=== PATIENT | female | born 1955 | race Caucasian/White ===

== ENCOUNTER 2018-08-01 10:06 | Emergency (ER) | payer BC ==
[2018-08-01 11:23] LABS: Absolute Lymphocytes (CBC) 0.7 K/uL (0.7-4.9); Absolute Monocytes 0.6 K/uL (0.1-1.3); Basophils % 0.5 % (0-1.3); Eosinophils % 0.2 % (0-4.4); Hematocrit 39.7 % (36.0-45.0); Lymphocytes % 20.6 % (15.3-44.8); MPV 8.6 fL (7.6-11.3); Monocytes % 17.2 % (3.3-12.3); RBC Red Blood Cell Count 4.46 M/uL (3.86-4.86)
[2018-08-01] MEDS ORDERED: NA CHLORIDE 0.9% 1,000 ML ONE (11:24)
[2018-08-01] MEDS ORDERED: ONDANSETRON 4 MG/2 ML VIAL ONE (11:24)
--- NOTE | 2018-08-01 11:32 | RAD REPORT ---
EXAM DESCRIPTION: RAD - Chest Single View - 08/01/2018 11:26 am CLINICAL HISTORY: COUGH Chest pain. COMPARISON: CHEST PA AND LAT 2 VIEW dated 10/11/2009; CHEST PA AND LAT 2 VIEW dated 12/01/2008; CHEST PA AND LAT 2 VIEW dated 09/16/2004 FINDINGS: Portable technique limits examination quality. The lungs are underinflated resulting in vascular crowding. No consolidation evident. The heart is mi ldly prominent in size. No displaced fractures.
[2018-08-01 11:48] LABS: Potassium 4.5 mmol/L (3.5-5.1)
--- NOTE | 2018-08-01 12:38 | ER ---
Nurse's Notes [facility] Name: Darby Lau Age: 62 yrs Sex: Female : 1955 Arrival Date: 08/01/2018 Time: 10:08 Bed 16 Private MD: Diagnosis: Influenza due to identified novel influenza A virus;Dehydration Presentation: 08/01 10:00 Initial Sepsis Screen: Does the patient meet any 2 criteria? No. Patient's initial ls4 sepsis screen is negative. Does the patient have a suspected source of infection? No. Patient's initial sepsis screen is negative. 10:30 Presenting complaint: N/V, nonproductive cough, sinus congestion, and subjective fever hb x 5 days. Not tolerating fluids/medications. Hx DM, has insulin pump and glucose monitor, BGL 253. Transition of care: patient was not received from another setting of care. Onset of symptoms was July 27, 2018. Risk Assessment: Do you want to hurt yourself or someone else? Patient reports no desire to harm self or others. Care prior to arrival: None. 10:30 Method Of Arrival: Ambulatory hb 10:30 Acuity: OMDI 3 hb Triage Assessment: 10:30 General: Appears in no apparent distress. Behavior is calm, cooperative. ls4 10:30 Pain: Denies pain. ls4 Historical: - Allergies: 10:36 Cipro; hb 10:36 Darvocet-N 100; hb 10:36 Codeine; hb 10:36 Sulfa (Sulfonamide Antibiotics); hb - Home Meds: 10:36 Insulin Pump [Active]; gabapentin 300 mg oral cap 1 cap 3 times per day [Active]; hb losartan 50 mg oral tab 1 tab once daily [Active]; omeprazole 20 mg Oral cpDR 1 cap once daily [Active]; aspirin 81 mg Oral TbEC 1 tab once daily [Active]; Benadryl 25 mg Oral cap 2 caps nightly [Active]; Calcium+D oral oral [Active]; Co Q-10 100 mg oral cap [Active]; multivitamin with minerals oral tab [Active]; tumeric [Active]; alprazolam 0.25 mg Oral TbDL 1 tab nightly [Active]; Reclast 5 mg/100 mL intravenous soln [Active]; - PMHx: 10:36 Back pain; Diabetes - IDDM; osteoarthritis; hb - PSHx: 10:36 Tonsillectomy; Tubal ligation; Hysterectomy; hb - Immunization history:: Adult Immunizations up to date. - Social history:: Smoking status: Patient/guardian denies using tobacco. - Ebola Screening: : No symptoms or risks identified at this time. Screenin:28 Abuse screen: Denies threats or abuse. Denies injuries from another. Nutritional ls4 screening: No deficits noted. Tuberculosis screening: No symptoms or risk factors identified. Fall Risk None identified. Assessment: 10:00 General: Appears in no apparent distress. Pain: Denies pain. Cardiovascular: No ls4 deficits noted. Respiratory: No deficits noted. : No deficits noted. Derm: No deficits noted. Vital Signs: 10:32 BP 122 / 66; Pulse 90; Resp 16; Temp 98.3; Pulse Ox 100% on R/A; Pain 6/10; hb ED Course: 10:08 Patient arrived in ED. tw3 10:26 Horacio Deluna PA is PHCP. jr8 10:26 Klaus Tubbs MD is Attending Physician. jr8 10:32 Triage completed. hb 10:32 Arm band placed on. hb 10:37 Alana Florence, RN is Primary Nurse. ls4 11:18 Initial lab(s) drawn, by ok, sent to lab. Inserted saline lock: 22 gauge in left 5 antecubital area, using aseptic technique. Blood collected. 11:19 Patient has correct armband on for positive identification. Bed in low position. Call [facility] light in reach. Side rails up X 1. Adult w/ patient. Warm blanket given. Pulse ox on. NIBP on. 11:19 Basic Metabolic Panel Sent. 5 11:19 CBC with Diff Sent. 5 11:19 Influenza Screen (a \T\ B) Sent. 5 11:25 X-ray completed. Portable x-ray completed in exam room. Patient tolerated procedure sw well. 11:26 XRAY Chest (1 view) In Process Unspecified. EDMS 11:28 No provider procedures requiring assistance completed. ls4 13:05 IV discontinued, intact, bleeding controlled, No redness/swelling at site. ls4 Administered Medications: 11:28 Drug: NS 0.9% 1000 ml Route: IV; Rate: 1000 ml; Site: left antecubital; ls4 11:28 Drug: Zofran 4 mg Route: IVP; Site: left antecubital; ls4 Outcome: 12:37 Discharge ordered by . 8 13:05 Patient left the ED. ls4 13:05 Condition: stable ls4 13:05 Discharged to home ambulatory, with family. ls4 13:05 Discharge instructions given to patient, family, Instructed on discharge instructions, follow up and referral plans. Demonstrated understanding of instructions, follow-up care, medications. Signatures: Dispatcher [employer] EDMS Horacio Deluna PA PA jr8 Warren, Shannon sw Baxter, Heather, LETICIA RN Lennie Ferris 5 Lance, Genoveva 3 Alana Florence RN RN ls4
--- NOTE | 2018-08-01 12:38 | EDPHYS ---
Physician Documentation [facility] Name: Darby Lau Age: 62 yrs Sex: Female : 1955 Arrival Date: 08/01/2018 Time: 10:08 Bed 16 Private MD: ED Physician Klaus Tubbs HPI: 08/01 10:42 This 62 yrs old Female presents to ER via Ambulatory with complaints of Flu jr8 Symptoms. 10:42 one week ago had flu like symptoms. Still continues and now having n/v. . Severity of jr8 symptoms: At their worst the symptoms were moderate in the emergency department the symptoms are unchanged. The patient has not experienced similar symptoms in the past. The patient has not recently seen a physician. Historical: - Allergies: 10:36 Cipro; hb 10:36 Darvocet-N 100; hb 10:36 Codeine; hb 10:36 Sulfa (Sulfonamide Antibiotics); hb - Home Meds: 10:36 Insulin Pump [Active]; gabapentin 300 mg oral cap 1 cap 3 times per day [Active]; hb losartan 50 mg oral tab 1 tab once daily [Active]; omeprazole 20 mg Oral cpDR 1 cap once daily [Active]; aspirin 81 mg Oral TbEC 1 tab once daily [Active]; Benadryl 25 mg Oral cap 2 caps nightly [Active]; Calcium+D oral oral [Active]; Co Q-10 100 mg oral cap [Active]; multivitamin with minerals oral tab [Active]; tumeric [Active]; alprazolam 0.25 mg Oral TbDL 1 tab nightly [Active]; Reclast 5 mg/100 mL intravenous soln [Active]; - PMHx: 10:36 Back pain; Diabetes - IDDM; osteoarthritis; hb - PSHx: 10:36 Tonsillectomy; Tubal ligation; Hysterectomy; hb - Immunization history:: Adult Immunizations up to date. - Social history:: Smoking status: Patient/guardian denies using tobacco. - Ebola Screening: : No symptoms or risks identified at this time. ROS: 10:49 Eyes: Negative for injury, pain, redness, and discharge, ENT: Negative for injury, jr8 pain, and discharge, Neck: Negative for injury, pain, and swelling, Cardiovascular: Negative for chest pain, palpitations, and edema, Back: Negative for injury and pain, MS/Extremity: Negative for injury and deformity, Skin: Negative for injury, rash, and discoloration, Neuro: Negative for headache, weakness, numbness, tingling, and seizure. 10:49 Respiratory: Positive for cough, dyspnea on exertion, Negative for shortness of breath, sputum production, wheezing. 10:49 Abdomen/GI: Positive for nausea and vomiting, Negative for abdominal pain, diarrhea, abdominal cramps, abdominal distension, anorexia, dysphagia, hematemesis, black/tarry stool, rectal pain, rectal bleeding, bowel incontinence, flatulence. Exam: 10:49 Eyes: Pupils equal round and reactive to light, extra-ocular motions intact. Lids and jr8 lashes normal. Conjunctiva and sclera are non-icteric and not injected. Cornea within normal limits. Periorbital areas with no swelling, redness, or edema. ENT: Nares patent. No nasal discharge, no septal abnormalities noted. Tympanic membranes are normal and external auditory canals are clear. Oropharynx with no redness, swelling, or masses, exudates, or evidence of obstruction, uvula midline. Mucous membranes moist. Neck: Trachea midline, no thyromegaly or masses palpated, and no cervical lymphadenopathy. Supple, full range of motion without nuchal rigidity, or vertebral point tenderness. No Meningismus. Cardiovascular: Regular rate and rhythm with a normal S1 and S2. No gallops, murmurs, or rubs. Normal PMI, no JVD. No pulse deficits. Respiratory: Lungs have equal breath sounds bilaterally, clear to auscultation and percussion. No rales, rhonchi or wheezes noted. No increased work of breathing, no retractions or nasal flaring. Abdomen/GI: Soft, non-tender, with normal bowel sounds. No distension or tympany. No guarding or rebound. No evidence of tenderness throughout. Back: No spinal tenderness. No costovertebral tenderness. Full range of motion. Skin: Warm, dry with normal turgor. Normal color with no rashes, no lesions, and no evidence of cellulitis. MS/ Extremity: Pulses equal, no cyanosis. Neurovascular intact. Full, normal range of motion. Neuro: Awake and alert, GCS 15, oriented to person, place, time, and situation. Cranial nerves II-XII grossly intact. Motor strength 5/5 in all extremities. Sensory grossly intact. Cerebellar exam normal. Normal gait. Vital Signs: 10:32 BP 122 / 66; Pulse 90; Resp 16; Temp 98.3; Pulse Ox 100% on R/A; Pain 6/10; hb MDM: 10:26 Patient medically screened. 8 12:36 Data reviewed: vital signs, nurses notes, lab test result(s), radiologic studies, plain jr films, and as a result, I will discharge patient. Data interpreted: Pulse oximetry: on room air is 100 %. Interpretation: normal. Counseling: I had a detailed discussion with the patient and/or guardian regarding: the historical points, exam findings, and any diagnostic results supporting the discharge/admit diagnosis, lab results, radiology results, the need for outpatient follow up, a family practitioner, to return to the emergency department if symptoms worsen or persist or if there are any questions or concerns that arise at home. Response to treatment: the patient's symptoms have markedly improved after treatment, patient is well hydrated. 08/01 10:44 Order name: Influenza Screen (a \T\ B); Complete Time: 11:49 [facility] 08/01 10:44 Order name: CBC with Diff 08/01 10:44 Order name: Basic Metabolic Panel; Complete Time: 11:49 [facility] 08/01 10:44 Order name: XRAY Chest (1 view); Complete Time: 11:33 [facility] 08/01 12:36 Order name: Urine Dipstick--Ancillary (enter results); Complete Time: 12:51 08/01 10:44 Order name: Urine Dipstick-Ancillary (obtain specimen); Complete Time: 13:05 [facility] 08/01 10:44 Order name: IV; Complete Time: 11:19 Administered Medications: 11:28 Drug: NS 0.9% 1000 ml Route: IV; Rate: 1000 ml; Site: left antecubital; ls4 11:28 Drug: Zofran 4 mg Route: IVP; Site: left antecubital; ls4 Disposition: 14:18 Co-signature as Attending Physician, Klaus Tubbs MD I agree with the assessment and melissa plan of care. Disposition: 08/01/18 12:37 Discharged to Home. Impression: Influenza due to identified novel influenza A virus, Dehydration. - Condition is Stable. - Discharge Instructions: Dehydration, Adult, Influenza, Adult. - Medication Reconciliation Form, Thank You Letter, Antibiotic Education, Prescription Opioid Use form. - Follow up: Private Physician; When: 2 - 3 days; Reason: Recheck today's complaints, Continuance of care, Re-evaluation by your physician. - Problem is new. - Symptoms have improved. Signatures: Dispatcher [employer] EDMS Klaus Tubbs MD MD cha Roszak, Josh, PA PA jr8 Stephanie Conway RN RN Alana Florecne RN RN ls4 Corrections: (The following items were deleted from the chart) 13:05 12:37 08/01/2018 12:37 Discharged to Home. Impression: Influenza due to identified ls4 novel influenza A virus; Dehydration. Condition is Stable. Forms are Medication Reconciliation Form, Thank You Letter, Antibiotic Education, Prescription Opioid Use. Follow up: Private Physician; When: 2 - 3 days; Reason: Recheck today's complaints, Continuance of care, Re-evaluation by your physician. Problem is new. Symptoms have improved. jr8
[2018-08-01 12:48] LABS: Urine Blood TRACE (NEG); Urine Glucose 2+ (NEG); Urine Protein NEGATIVE (NEG); Urine pH 5.5 (5.0-7.0)
[2018-08-01 13:22] VITALS: BP 122/66; TEMP 98.3; O2SAT 100
[2018-08-01 13:34] LABS: Blood Morphology Comment NOT SEEN (NOT SEEN); Platelet Estimate ADEQ
== END 2018-08-01 13:05 | disposition home or self-care (01) ==
LOC: ER 10:06
DX: J10.1 Influenza due to other identified influenza virus with other respiratory manifestations (principal); E86.0 Dehydration; E11.9 Type 2 diabetes mellitus without complications; Z96.41 Presence of insulin pump (external) (internal); Z79.4 Long term (current) use of insulin; Z79.82 Long term (current) use of aspirin; Z88.1 Allergy status to other antibiotic agents; Z88.2 Allergy status to sulfonamides; Z88.5 Allergy status to narcotic agent
CPT/HCPCS: 36415; 71045; 80048; 81003; 85025; 87804; 96374; 99284; J2405; J7030

== ENCOUNTER 2023-09-18 16:58 | Inpatient (IN) | payer OTHER ==
--- OUTSIDE RECORDS SUMMARY | 2023-09-18 17:00 | XMS REPORT | Clinical Summary ---
Author Name Unknown Organization [facility] Address [address] [place] [address] Care Team Providers Care Primer Expeditor And Drier Name Role Phone Valdemar Ro MD Primary Care Provi todd Allergies Active Allergy Reactions Criticality Noted Date Comments Ciprofloxacin Rash Low 06/16/2015 Propoxyphene GI Intolerance 07/23/2023 Sulfa (Sulfonamide Antibiotics) Hives,Rash Low 06/16/2015 Triazolam Other (See Comments) 07/23/2023 Memory loss Medications Medication Sig Dispensed Refills Start Date End Date Status famotidine (PEPCID) 20 mg tablet Take 1 tablet (20 mg) by mouth daily. 0 Active gabapentin (NEURONTIN) 300 mg capsule Take 1 capsule (300 mg) by mouth every morning. 0 Active insulin lispro (HumaLOG) 100 units/mL injection for insulin pump by continuous subcutaneous infusion route continuous. For use in insulin pump. 0 Active losartan (COZAAR) 50 mg tablet Take 1 tablet (50 mg) by mouth daily. 0 Active omeprazole (PriLOSEC) 40 MG capsule Take 1 capsule (40 mg) by mouth every morning before breakfast. 0 Active UNABLE TO FIND daily. Med Name: align probiotic 0 Active aspirin 81 mg EC tablet Take 1 tablet (81 mg) by mouth daily. 0 Active biotin 2,500 mcg cap Take 1 capsule by mouth daily. 0 Active diphenhydrAMINE (BENADRYL) 25 mg capsule Take 1 capsule (25 mg) by mouth. 0 Active cetirizine (ZyrTEC) 10 mg tablet Take 1 tablet (10 mg) by mouth daily. 0 Active co-enzyme Q-10 50 mg capsule Take 4 capsules (200 mg) by mouth daily. 0 Active traMADol (ULTRAM) 50 mg tablet Take 1 tablet (50 mg) by mouth as needed. 0 Active lutein-zeaxanthin 20 mg- 1,000 mcg cap Take 1 capsule by mouth daily. 0 Active CALCIUM 26-VIT D3-MAGNESIUM 15 ORAL Take 1 capsule by mouth daily. 0 Active Active Problems Problem Noted Date Diagnosed Date Type 1 diabetes mellitus 07/23/2023 Lesion of bone 07/23/2023 Encounters Date Type Department Care Team Description 08/08/2023 [facility]phone [facility] [address] [place] [address], 9th [place] [address] Tom Contreras PA 07/25/2023 1:10 PM CHINESE LANGUAGE PROFESSOR Ancillary Procedure [facility] [address] [address] Tom Contreras PA Lesion of bone 07/25/2023 Travel 07/23/2023 1:25 PM CHINESE LANGUAGE PROFESSOR - 07/23/2023 11:59 PM CHINESE LANGUAGE PROFESSOR Hospital [facility]counter [facility] [address] [place] [address], 3rd [place] [address] Tom Contreras PA Lesion of bone Discharge Disposition: Home 07/23/2023 12:45 PM CHINESE LANGUAGE PROFESSOR Ancillary Procedure [facility] [address] [place] [address], 7th [place] [address] Tom Contreras PA Lesion of bone 07/23/2023 12:30 PM CHINESE LANGUAGE PROFESSOR Ancillary Procedure [facility] [address] [place] [address], 7th [place] [address] Tom Contreras PA Lesion of bone 07/23/2023 10:31 AM CHINESE LANGUAGE PROFESSOR - 07/23/2023 1:24 PM CHINESE LANGUAGE PROFESSOR Hospital Encounter [facility] [address] [place] [address], [place] [address] Tmo Contreras PA Lesion of bone Discharge Disposition: Home 07/23/2023 10:00 AM CHINESE LANGUAGE PROFESSOR Office [facility] [address] [place] [address], 9th [place] [address] Valdemar Ro MD Lesion of bone (Primary Dx) 07/23/2023 Travel 07/18/2023 8:30 PM CHINESE LANGUAGE PROFESSOR Ancillary Procedure [facility] [address] [place] [id number] Valdemar Ro MD Cancer 07/18/2023 8:25 PM CHINESE LANGUAGE PROFESSOR Ancillary Procedure [facility] [address] [place] [id number] Valdemar Ro MD Cancer 07/18/2023 8:20 PM CHINESE LANGUAGE PROFESSOR Ancillary Procedure [facility] [address] [place] [id number] Valdemar Ro MD Cancer 07/18/2023 8:15 PM CHINESE LANGUAGE PROFESSOR Ancillary Procedure [facility] [address] [place] [id number] Valdemar Ro MD Cancer 07/18/2023 8:10 PM CHINESE LANGUAGE PROFESSOR Ancillary Procedure [facility] [address] [place] [id number] Valdemar Ro MD Cancer 07/18/2023 8:05 PM CHINESE LANGUAGE PROFESSOR Ancillary Procedure [facility] [address] [place] [id number] Valdemar Ro MD Cancer 07/18/2023 8:00 PM CHINESE LANGUAGE PROFESSOR Ancillary Procedure [facility] [address] [place] [id number] Valdemar Ro MD Cancer 07/18/2023 1:30 PM CHINESE LANGUAGE PROFESSOR NPR MDA PATIENT ACCESS Valdemar Ro MD after 09/18/2022 Surgical History Surgery Date Site/Laterality Comments APPENDECTOMY 1976 COLONOSCOPY 192 Neg HYSTERECTOMY 2001 c Bladder Suspension CHOLECYSTECTOMY 1976 Multi Stones KNEE ARTHROPLASTY Partial R 2010 & 201 2 Partial L UPPER GASTROINTESTINAL ENDOSCOPY 2019-current Medical History Medical History Date Comments Hypertension ? Hyperlipidemia ? Allergic rhinitis Seasonal Swallowing problem Large bites or meds Gastric reflux 2016 Gastric ulcer Gastric age 11 Irritable bowel syndrome 2020 after 1st covid va c Chronic Gallstone 1976 Open Jeanette/Appe Renal stone 1976 removed Blood transfusion, without reported diagnosis 19 77 Arthritis 1970 Osteo Type 1 diabetes mellitus 1976 Dexcom G6& Omnipod A1C 5.9 Family History Medical History Relation Name Comments -Other cancer Mother Aledya Walker systemic scler osis, Scleroderma -Other cancer Paternal Grandfather Aba Emmanuel Squa mous Cell Carcinoma Relation Name Status Comments Mother Aleyda Walker Paternal Grandfather Aba Emmanuel Social History Tobacco Use Types Packs/Day Years Used Date Smoking Tobacco: Never Smokeless Tobacco: Never Tobacco Cessation:Counseling Given: Not Answered Alcohol Use Standard Drinks/Week Comments Not Currently 0 (1 standard drink = 0.6 oz pur e alcohol) rarely wine Sex and Gender Information Value Date Recorded Sex Assigned at Female 07/02/2023 5:09 PM CHINESE LANGUAGE PROFESSOR Gender Identity Female 07/02/2023 5:09 PM CHINESE LANGUAGE PROFESSOR Sexual Orientation Straight 07/02/2023 5: 09 PM CHINESE LANGUAGE PROFESSOR Job Start Date Occupation Industry Not on file Not on file Not on file Obstetrics History Last Filed Vital Signs Vital Sign Reading Time Taken Comments Blood Pressure 150/61 07/23/2023 9:25 AM CHINESE LANGUAGE PROFESSOR Pulse 80 07/23/2023 9:25 AM CHINESE LANGUAGE PROFESSOR Temperature 36.7 C (98.1 F) 07/23/2023 9:25 AM CS T Respiratory Rate 18 07/23/2023 9:25 AM CHINESE LANGUAGE PROFESSOR Oxygen Saturation 99% 07/23/2023 9:25 AM CHINESE LANGUAGE PROFESSOR Inhaled Oxygen Concentration - - Weight 68.5 kg (151 lb 0.2 oz) 07/23/2023 9:25 A M CHINESE LANGUAGE PROFESSOR Height 151.5 cm (4' 11.65") 07/23/2023 9:[address] Body Mass Index 29.84 07/23/2023 9:25 AM CHINESE LANGUAGE PROFESSOR Plan of Treatment Health Maintenance Due Date Last Done Comments COVID-19 Vaccine (2022-06 4 season) 2023 03/25/2021, 07/24/2020, 06/26/2020 Influenza Vaccine 01/19/2023 01/10/2020 Procedures Procedure Name Priority Date/Time Associated Diagnosis Comments POC GLUCOSE SCREEN Routine 07/25/2023 2: 32 [address] CH[employer] CT CHEST ABDOMEN PELVIS W CONTRAST Routine 07/25/2023 2:28 PM CHINESE LANGUAGE PROFESSOR Lesion of bone POC GLUCOSE SCREEN Routine 07/25/2023 1: 15 PM CHINESE LANGUAGE PROFESSOR XR SCOLIOSIS SERIES AP/LAT Routine 07/23/2023 2:21 PM CHINESE LANGUAGE PROFESSOR Lesion of bone XR RIBS BILATERAL 3 VW Routine 12:53 PM CHINESE LANGUAGE PROFESSOR Lesion of bone XR HIP 2 VW BILATERAL W PELVIS Routine 07/23/2023 12:47 PM CHINESE LANGUAGE PROFESSOR Lesion of bone PROTEIN ELECTROPHORESIS Routine 07/23/19 24 11:02 AM CHINESE LANGUAGE PROFESSOR Lesion of bone .CBC Routine 07/23/2023 11:02 AM CHINESE LANGUAGE PROFESSOR Lesion of bone C REACTIVE PROTEIN Routine 07/23/2023 11 :02 AM CHINESE LANGUAGE PROFESSOR Lesion of bone SEDIMENTATION RATE NON-AUTOMATED Routine 07/23/2023 11:02 AM CHINESE LANGUAGE PROFESSOR Lesion of bone FREE THYROXINE Routine 07/23/2023 11:02 AM CHINESE LANGUAGE PROFESSOR Lesion of bone THYROID STIMULATING HORMONE Routine 07/23/2023 11:02 AM CHINESE LANGUAGE PROFESSOR Lesion of bone PROTEIN ELECTROPHORESIS Routine 07/23/19 24 11:02 AM CHINESE LANGUAGE PROFESSOR Lesion of bone HEMOGLOBIN A1C Routine 07/23/2023 11:02 AM CHINESE LANGUAGE PROFESSOR Lesion of bone TYPE AND SCREEN Routine 07/23/2023 11:02 AM CHINESE LANGUAGE PROFESSOR Lesion of bone TOTAL PROTEIN Routine 07/23/2023 11:02 AM CHINESE LANGUAGE PROFESSOR Lesion of bone PROTHROMBIN TIME Routine 07/23/2023 11:0 2 AM CHINESE LANGUAGE PROFESSOR Lesion of bone PHOSPHORUS LEVEL Routine 07/23/2023 11:0 2 AM CHINESE LANGUAGE PROFESSOR Lesion of bone MAGNESIUM LEVEL Routine 07/23/2023 11:02 AM CHINESE LANGUAGE PROFESSOR Lesion of bone LACTATE DEHYDROGENASE Routine 07/23/2023 11:02 AM CHINESE LANGUAGE PROFESSOR Lesion of bone GLUCOSE, RANDOM Routine 07/23/2023 11:02 AM CHINESE LANGUAGE PROFESSOR Lesion of bone ELECTROLYTE PANEL Routine 07/23/2023 11: 02 AM CHINESE LANGUAGE PROFESSOR Lesion of bone CREATININE Routine 07/23/2023 11:02 AM CHINESE LANGUAGE PROFESSOR Lesion of bone COMPLETE BLOOD COUNT W/ DIFFERENTIAL Routine 07/23/2023 11:02 AM CHINESE LANGUAGE PROFESSOR Lesion of bone BILIRUBIN TOTAL Routine 07/23/2023 11:02 AM CHINESE LANGUAGE PROFESSOR Lesion of bone CALCIUM LEVEL Routine 07/23/2023 11:02 AM CHINESE LANGUAGE PROFESSOR Lesion of bone BLOOD UREA NITROGEN Routine 07/23/2023 1 1:02 AM CHINESE LANGUAGE PROFESSOR Lesion of bone ASPARTATE AMINOTRANSFERASE Routine 07/23/2023 11:02 AM CHINESE LANGUAGE PROFESSOR Lesion of bone APTT Routine 07/23/2023 11:02 AM CHINESE LANGUAGE PROFESSOR Lesion of bone ALANINE AMINOTRANSFERASE Routine 024 11:02 AM CHINESE LANGUAGE PROFESSOR Lesion of bone ALBUMIN LEVEL Routine 07/23/2023 11:02 AM CHINESE LANGUAGE PROFESSOR Lesion of bone CONFIRM ABORH TYPE Routine 07/23/2023 10 :59 AM CHINESE LANGUAGE PROFESSOR Lesion of bone OSI NUCLEAR DIAGNOSTIC EXAM Routine 07/04/2023 1:07 PM CHINESE LANGUAGE PROFESSOR Cancer OSI BARIUM SWALLOW Routine 07/02/2023 1: 07 PM CHINESE LANGUAGE PROFESSOR Cancer OSI CHEST Routine 03/29/2023 1:08 PM CHINESE LANGUAGE PROFESSOR Cancer OSI BONE SCAN Routine 03/29/2023 1:07 PM CHINESE LANGUAGE PROFESSOR Cancer after 09/18/2022 Results * POC Glucose Screen - Fingerstick (07/25/2023 2:32 PM CHINESE LANGUAGE PROFESSOR) Only the most recent of2 resultswithin the time period is included. Pathologist [facility] Glucose Screen 81 70 - 99 mg/dL 07/25/2023 2:34 PM CHINESE LANGUAGE PROFESSOR CARLISLE POC Sample Type Capillary 07/25/2023 2:34 PM [facility] Blood 07/25/2023 2:32 PM CHINESE LANGUAGE PROFESSOR 07/25/2023 2:34 PM CHINESE LANGUAGE PROFESSOR [facility] - 07/25/2023 2:34 PM CHINESE LANGUAGE PROFESSOR Capillary blood samples, e.g. obtained by fingerstick, may have inaccurate results in patients with decreased peripheral blood flow. Method description: All results are measured using Electrochemistry test methodology. The glucose in the sample mixes with the reagents on the test strip. The reaction produces an electric current. The amount of current produced is proportional to the glucose concentration in the blood. All POC Glucose screen test results, including critical values, must be interpreted and evaluated in the context of the patients' clinical findings. It is recommended to confirm any questionable test results by core lab methodology. Tom OSORIO POCT ORDERABLES - DEVICE [facility] [place] [address] [facility], [facility] [address] [place] [address] * CT Chest Abdomen Pelvis with Contrast (07/25/2023 2:28 PM CHINESE LANGUAGE PROFESSOR) Anatomical Region Laterality Modality Abdomen, Pelvis, Chest Computed Tomography 07/27/2023 11:3 4 AM CHINESE LANGUAGE PROFESSOR Impressions 07/27/2023 12:05 PM CHINESE LANGUAGE PROFESSOR 1. No suspicious focal masses in the chest, abdomen and pelvis. 2. Clustered airspace opacities in the right upper lobe likely represent sequela of infection/inflammation and will be monitored on follow-up imaging. 3. Few scattered predominantly pleural-based nodules in the left lung and right upper lobe are indeterminate but likely benign and will be monitored on follow- up imaging. Follow-up chest CT in 6-12 months may be further helpful. 4. Small hypodensity in segment 8 most likely represents a small hemangioma. This will be monitored on follow-up imaging. 5. Healing fractures of the left superior pubic ramus and inferior pubic ramus, faint sclerosis at the anterior aspect of the left eighth rib are likely related to the history of trauma. No discrete abnormality is seen in the left ninth rib. No abnormal lytic or sclerotic osseous lesions are identified. ACTIONABLE ITEMS/RECOMMENDATIONS*: See impression. Narrative 07/27/2023 12:05 PM CHINESE LANGUAGE PROFESSOR FULL RESULT: Examination: CT CHEST ABDOMEN PELVIS W CONTRAST on 07/25/2023 2:28 PM. Clinical History: Outside bone scan from 03/29/2023 showed multiple areas of uptake in the ribs and left pelvis. No personal history of cancer. History of fall a few months back landing on left side. Indication: Evaluate the sites of uptake in the pelvis and ribs, evaluate for any primary tumor. Comparison: Bone scan from 03/29/2020, scoliosis series, radiographs of bilateral ribs and hips. Technique: CT of the chest, abdomen and pelvis is performed after the administration of intravenous contrast. Findings: CHEST FINDINGS: Lungs and Pleura: Clustered airspace opacities in the right upper lobe (7, images 23-29) likely represent sequela of infection/inflammation and will be monitored on follow-up imaging. Few scattered predominantly pleural-based nodules in the left lung (series 7, images 17, 27, 28, 51, 72, 84) and right upper lobe (image 39) are indeterminate but likely benign. A small mucous plug is seen in the left upper lobe bronchus (series 7, image 38) A calcified granuloma is seen in the right lower lobe (series 4, image 60). No pleural effusions are seen. Cardiomediastinum: The aorta and central pulmonary arteries demonstrate normal course and caliber. The heart size is within normal limits. A few small calcified mediastinal and hilar nodes are seen. Lymph nodes: No suspicious intrathoracic lymphadenopathy is seen ABDOMEN AND PELVIS FINDINGS: Hepatobiliary: No suspicious focal liver parenchymal lesions are seen. A small hypodensity in the right liver segment 8 measuring 0.6 cm (series 5, image 141) most likely represents a hemangioma. Wedge-shaped hypodensity in the segment 5 anteriorly (series 6, 177) could represent perfusion changes/focal fatty infiltration. The portal veins and hepatic veins are patent. The gallbladder has been resected. No intrahepatic or extra hepatic biliary ductal dilatation is seen. Spleen: The spleen size is within normal limits. No focal splenic parenchymal lesions are identified. Pancreas: The pancreas is diffusely atrophic and this could be related to history of type 1 diabetes. No pancreatic ductal dilatation is seen. Adrenal Glands: Both adrenal glands are unremarkable. Kidneys, Ureters, Bladder: Both kidneys demonstrate symmetric enhancement and excretion. No hydronephrosis or hydroureter or focal renal masses are identified. The urinary bladder is well-distended and is unremarkable Gastrointestinal Tract: No abnormally dilated small bowel or large bowel loops are identified. Pelvic Organs: The uterus has been resected. No suspicious adnexal masses are identified. Peritoneum/Retroperitoneum: No free intraperitoneal fluid is seen. Lymph Nodes: No suspicious intra-abdominal or intrapelvic lymphadenopathy is seen. Vessels: Mild to moderate atherosclerotic calcifications of the abdominal aorta is seen. The inferior vena cava is patent and demonstrates normal course and caliber. MUSCULOSKELETAL FINDINGS: Healing fractures of the left superior pubic ramus and inferior pubic ramus are seen and are likely related to the history of trauma. Faint sclerosis at the anterior aspect of the left eighth rib (6, image 140) could be related to sequela of trauma. No discrete abnormality is seen in the left ninth rib. No abnormal lytic or sclerotic lesions are identified. Multilevel degenerative changes are seen in the spine. Procedure Note Anneliese Browning MD - 07/27/2023 FULL RESULT: Examination: CT CHEST ABDOMEN PELVIS W CONTRAST on 07/25/2023 2:28 PM. Clinical History: Outside bone scan from 03/29/2023 showed multiple areasof uptake in the ribs and left pelvis. No personal history of cancer.History of fall a few months back landing on left side. Indication: Evaluate the sites of uptake in the pelvis and ribs, evaluatefor any primary tumor. Comparison: Bone scan from 03/29/2020, scoliosis series, radiographs ofbilateral ribs and hips. Technique: CT of the chest, abdomen and pelvis is performed after theadministration of intravenous contrast. Findings: CHEST FINDINGS: Lungs and Pleura: Clustered airspace opacities in the right upper lobe (7,images 23-29) likely represent sequela of infection/inflammation and willbe monitored on follow-up imaging. Few scattered predominantlypleural-based nodules in the left lung (series 7, images 17, 27, 28, 51,72, 84) and right upper lobe (image 39) are indeterminate but likelybenign. A small mucous plug is seen in the left upper lobe bronchus(series 7, image 38) A calcified granuloma is seen in the right lower lobe(series 4, image 60). No pleural effusions are seen. Cardiomediastinum: The aorta and central pulmonary arteries demonstratenormal course and caliber. The heart size is within normal limits. A fewsmall calcified mediastinal and hilar nodes are seen. Lymph nodes: No suspicious intrathoracic lymphadenopathy is seen ABDOMEN AND PELVIS FINDINGS: Hepatobiliary: No suspicious focal liver parenchymal lesions are seen. Asmall hypodensity in the right liver segment 8 measuring 0.6 cm (series 5,image 141) most likely represents a hemangioma. Wedge-shaped hypodensityin the segment 5 anteriorly (series 6, 177) could represent perfusionchanges/focal fatty infiltration. The portal veins and hepatic veins arepatent. The gallbladder has been resected. No intrahepatic or extrahepatic biliary ductal dilatation is seen. Spleen: The spleen size is within normal limits. No focal splenicparenchymal lesions are identified. Pancreas: The pancreas is diffusely atrophic and this could be related tohistory of type 1 diabetes. No pancreatic ductal dilatation is seen. Adrenal Glands: Both adrenal glands are unremarkable. Kidneys, Ureters, Bladder: Both kidneys demonstrate symmetric enhancementand excretion. No hydronephrosis or hydroureter or focal renal masses areidentified. The urinary bladder is well-distended and is unremarkable Gastrointestinal Tract: No abnormally dilated small bowel or large bowelloops are identified. Pelvic Organs: The uterus has been resected. No suspicious adnexal massesare identified. Peritoneum/Retroperitoneum: No free intraperitoneal fluid is seen. Lymph Nodes: No suspicious intra-abdominal or intrapelvic lymphadenopathyis seen. Vessels: Mild to moderate atherosclerotic calcifications of the abdominalaorta is seen. The inferior vena cava is patent and demonstrates normalcourse and caliber. MUSCULOSKELETAL FINDINGS: Healing fractures of the left superior pubicramus and inferior pubic ramus are seen and are likely related to thehistory of trauma. Faint sclerosis at the anterior aspect of the lefteighth rib (6, image 140) could be related to sequela of trauma. Nodiscrete abnormality is seen in the left ninth rib. No abnormal lytic orsclerotic lesions are identified. Multilevel degenerative changes are seen in the spine. IMPRESSION: 1. No suspicious focal masses in the chest, abdomen and pelvis. 2. Clustered airspace opacities in the right upper lobe likely representsequela of infection/inflammation and will be monitored on follow-upimaging. 3. Few scattered predominantly pleural-based nodules in the left lung andright upper lobe are indeterminate but likely benign and will be monitoredon follow-up imaging. Follow-up chest CT in 6-12 months may be furtherhelpful. 4. Small hypodensity in segment 8 most likely represents a smallhemangioma. This will be monitored on follow-up imaging. 5. Healing fractures of the left superior pubic ramus and inferior pubicramus, faint sclerosis at the anterior aspect of the left eighth rib arelikely related to the history of trauma. No discrete abnormality is seenin the left ninth rib. No abnormal lytic or sclerotic osseous lesions areidentified. ACTIONABLE ITEMS/RECOMMENDATIONS*: See impression. Tom OSORIO IMOsmel CT ORDERABLES * XR Scoliosis Series AP/LAT (07/23/2023 2:21 PM CHINESE LANGUAGE PROFESSOR) Anatomical Region Laterality Modality Spine Digital Radiogra phy 07/23/2023 2:33 PM CHINESE LANGUAGE PROFESSOR Impressions 07/23/2023 2:38 PM CHINESE LANGUAGE PROFESSOR No evidence of scoliosis. Healing fractures left superior and inferior pubic rami. ACTIONABLE ITEMS/RECOMMENDATIONS*: None. Narrative 07/23/2023 2:38 PM CHINESE LANGUAGE PROFESSOR FULL RESULT: Examination: XR SCOLIOSIS SERIES AP/LAT, 07/23/2023 2:21 PM. Clinical History: 67-year-old woman with no history of cancer. Abnormal ribs on the radionuclide bone scan of 03/29/2023 Indication: eval for bone lesion Comparison: AP pelvis and both hips 07/23/2023 Technique: Weight-bearing frontal and lateral views of the entire spine with composite images. Findings: 7 cervical segments; 12 thoracic segments; 5 lumbar segments. SCOLIOTIC CURVATURE: Absent CERVICAL LORDOSIS, THORACIC KYPHOSIS, LUMBAR LORDOSIS: Subjectively normal. VERTEBRAL ABNORMALITIES: Fractures: Healing fractures of the left superior and inferior pubic rami. No spinal fractures detected. Lytic or sclerotic lesions: None. SPINAL SURGICAL CHANGES: None. L4/L5 degenerative disk disease with disk space narrowing, herniation, and spur formation. Procedure Note Devon Farmer Jr., MD - 07/23/2023 FULL RESULT: Examination: XR SCOLIOSIS SERIES AP/LAT, 07/23/2023 2:21 PM. Clinical History: 67-year-old woman with no history of cancer. Abnormalribs on the radionuclide bone scan of 03/29/2023 Indication: eval for bone lesion Comparison: AP pelvis and both hips 07/23/2023 Technique: Weight-bearing frontal and lateral views of the entire spinewith composite images. Findings: 7 cervical segments; 12 thoracic segments; 5 lumbar segments. SCOLIOTIC CURVATURE: Absent CERVICAL LORDOSIS, THORACIC KYPHOSIS, LUMBAR LORDOSIS: Subjectivelynormal. VERTEBRAL ABNORMALITIES: Fractures: Healing fractures of the left superior and inferior pubic rami.No spinal fractures detected. Lytic or sclerotic lesions: None. SPINAL SURGICAL CHANGES: None. L4/L5 degenerative disk disease with disk space narrowing, herniation, andspur formation. IMPRESSION: No evidence of scoliosis. Healing fractures left superior and inferior pubic rami. ACTIONABLE ITEMS/RECOMMENDATIONS*: None. Tom OSORIO IMG DIAGNOSTIC IM AGING ORDERABLES * XR Ribs 3 Views Bilateral (07/23/2023 12:53 PM CHINESE LANGUAGE PROFESSOR) Anatomical Region Laterality Modality Bone Digital Radiogra phy 07/23/2023 1:37 PM CHINESE LANGUAGE PROFESSOR Impressions 07/23/2023 1:45 PM CHINESE LANGUAGE PROFESSOR Examination of the bilateral ribs shows possible subtle abnormalities of the anterior left 8th and 9th ribs. These may be healing fractures. If clinically indicated, these ribs could be further examined with computed tomography. ACTIONABLE ITEMS/RECOMMENDATIONS*: None. Narrative 07/23/2023 1:45 PM CHINESE LANGUAGE PROFESSOR FULL RESULT: Examination: XR RIBS BILATERAL 3 VW, 07/23/2023 12:53 PM. Clinical History: 67-year-old woman with no history of cancer. Abnormal ribs on the radionuclide bone scan of 03/29/2023 Indication: eval for bone lesion Comparison: Radionuclide bone scan from [facility] dated 03/29/2023 Technique: XR RIBS BILATERAL 3 VW. Findings: Examination of the bilateral ribs shows possible subtle abnormalities of the anterior left 8th and 9th ribs. These may be healing fractures. If clinically indicated, these ribs could be further examined with computed tomography. Procedure Note Devon Farmer Jr., MD - 07/23/2023 FULL RESULT: Examination: XR RIBS BILATERAL 3 VW, 07/23/2023 12:53 PM. Clinical History: 67-year-old woman with no history of cancer. Abnormalribs on the radionuclide bone scan of 03/29/2023 Indication: eval for bone lesion Comparison: Radionuclide bone scan from [facility] dated105/29/2022 Technique: XR RIBS BILATERAL 3 VW. Findings: Examination of the bilateral ribs shows possible subtle abnormalities ofthe anterior left 8th and 9th ribs. These may be healing fractures. Ifclinically indicated, these ribs could be further examined with computedtomography. IMPRESSION: Examination of the bilateral ribs shows possible subtle abnormalities ofthe anterior left 8th and 9th ribs. These may be healing fractures. Ifclinically indicated, these ribs could be further examined with computedtomography. ACTIONABLE ITEMS/RECOMMENDATIONS*: None. Tom OSORIO IMG DIAGNOSTIC IM AGING ORDERABLES * XR Hip 2 Views Bilateral w Pelvis (07/23/2023 12:47 PM CHINESE LANGUAGE PROFESSOR) Anatomical Region Laterality Modality Hip, Extremity Digital Radiogra phy 07/23/2023 1:05 PM CHINESE LANGUAGE PROFESSOR Impressions 07/23/2023 1:19 PM CHINESE LANGUAGE PROFESSOR 1. No radiographic evidence of left lower rib abnormalities corresponding with the increased radiotracer uptake in an OSI radionuclide bone scan of 03/29/2023. 2. Healed fractures of left obturator ring. 3. Unremarkable hips. 4. No acute fracture or bone metastasis. ACTIONABLE ITEMS/RECOMMENDATIONS: None. Narrative 07/23/2023 1:19 PM CHINESE LANGUAGE PROFESSOR FULL RESULT: Examination: XR Bilateral Ribs, 4 Views, and XR Bilateral Hips, Including Pelvis, Minimum 3 Views, 07/23/2023 12:47 PM. Clinical History: Bone lesions. Indication: Radiographic evaluation. Comparison: None. Technique: 4 views of bilateral ribs, AP pelvis, and AP and frog-leg lateral views of bilateral hips, 07/23/2023 Findings: Generalized osteoporosis is present. Bilateral Ribs: The ribs are unremarkable. The lungs are clear. No pleural effusion is present. The heart is normal in size. Degenerative changes are present in the thoracic spine. Bilateral Hips: Significantly healed fractures of the left superior-inferior pubic rami are seen. Surgical clips are noted at the pubic symphysis. The hips are intact. A small bone island is seen in the left femoral neck. Degenerative changes are present in the lower lumbar spine. A lead pellet overlies the upper sacrum. An electronic device overlies the left mid thigh. Procedure Note Angel To MD - 07/23/2023 FULL RESULT: Examination: XR Bilateral Ribs, 4 Views, and XR Bilateral Hips, IncludingPelvis, Minimum 3 Views, 07/23/2023 12:47 PM. Clinical History: Bone lesions. Indication: Radiographic evaluation. Comparison: None. Technique: 4 views of bilateral ribs, AP pelvis, and AP and frog-leglateral views of bilateral hips, 07/23/2023 Findings: Generalized osteoporosis is present. Bilateral Ribs: The ribs are unremarkable. The lungs are clear. No pleural effusion ispresent. The heart is normal in size. Degenerative changes are present inthe thoracic spine. Bilateral Hips: Significantly healed fractures of the left superior-inferior pubic ramiare seen. Surgical clips are noted at the pubic symphysis. The hips areintact. A small bone island is seen in the left femoral neck. Degenerativechanges are present in the lower lumbar spine. A lead pellet overlies theupper sacrum. An electronic device overlies the left mid thigh. IMPRESSION: 1. No radiographic evidence of left lower rib abnormalities correspondingwith the increased radiotracer uptake in an OSI radionuclide bone scan of03/29/2023. 2. Healed fractures of left obturator ring. 3. Unremarkable hips. 4. No acute fracture or bone metastasis. ACTIONABLE ITEMS/RECOMMENDATIONS: None. Tom OSORIO IMG DIAGNOSTIC IM AGING ORDERABLES * Serum Protein Electrophoresis (07/23/2023 11:02 AM CHINESE LANGUAGE PROFESSOR) Albumin 4.3 3.6 - 5.4 gm/dL 07/23/2023 4:10 PM CHINESE LANGUAGE PROFESSOR [facility] Alpha 1 Globulin 0.3 0.2 - 0.4 gm/dL 07/23/2023 4:10 PM [facility] Alpha 2 Globulin 1.0 0.5 - 1.0 gm/dL 07/23/2023 4:10 PM [facility] Beta Globulin 0.8 0.5 - 1.1 gm/dL 07/23/2023 4:10 PM [facility] Gamma Globulin 1.1 0.7 - 1.6 gm/dL 07/23/2023 4:10 PM CHINESE LANGUAGE PROFESSOR [facility] SPE Path Interp The serum protein electrophoretic pattern does not show definite evidence of a M-protein peak. If a paraproteinemia is suspected clinically, serum free light chain studies, serum protein MINERVA studies, serum immunoglobulin quantitation and urine Bence-Arrington protein studies are recommended. 07/23/2023 4:10 PM [facility] Pathologist Signature . 07/23/2023 4:10 PM [facility] Total Protein 7.5 6.4 - 8.3 gm/dL 07/23/2023 4:10 PM [facility] Blood Peripheral blood specimen / Unknown Venipuncture / Unknown 07/23/2023 11:02 AM CHINESE LANGUAGE PROFESSOR 07/23/2023 11:13 AM CHINESE LANGUAGE PROFESSOR Tom OSORIO LAB BLOOD ORDERAB LES [facility] Unless otherwise noted, all lab tests performed by: Division of Pathology and Laboratory Medicine [address] [place] [phone] * Glucose, Random (07/23/2023 11:02 AM [facility]) Pathologist [facility] Glucose Random 96 70 - 199 mg/dL 07/23/2023 12:15 PM [facility] Blood Peripheral blood specimen / Unknown Venipuncture / Unknown 07/23/2023 11:02 AM CHINESE LANGUAGE PROFESSOR 07/23/2023 11:14 AM [facility] Narrative [facility] - 07/23/2023 12:15 PM [facility] Effective 12/15/15, the glucose reference intervals have been updated based on [place] [employer] guidelines (Standards of Medical Care in Diabetes 2016. Diabetes Care 2016; 39: S13-S22). Fasting blood glucose: Normal: 70-99 mg/dL Impaired fasting glucose (increased risk for diabetes or pre-diabetes): 100-125 mg/dL Diabetes mellitus: >/=126 mg/dL Random blood glucose: Normal: 70-199 mg/dL Note: Random glucose >100 mg/dL is associated with increased risk for diabetes Tom OSORIO LAB BLOOD ORDERAB LES [facility] Unless otherwise noted, all lab tests performed by: Division of Pathology and Laboratory Medicine [facility] [place] [address] * (ABNORMAL) .CBC (07/23/2023 11:02 AM [facility]) White Blood Cell 5.7 4.1 - 10.5 K/uL 07/23/2023 11:20 AM [facility] Red Blood Cell 4.39 3.99 - 5.46 M/uL 07/23/2023 11:20 AM [facility] Hemoglobin 12.5 12.2 - 15.3 g/dL 07/23/2023 11:20 AM [facility] Hematocrit 36.3(L) 36.4 - 46.8 % 07/23/2023 11:20 AM [facility] Mean Cell Volume 83 82 - 99 fL 07/23/2023 11:20 AM [facility] Mean Cell Hemoglobin 28.5 26.6 - 33.2 pg 07/23/2023 11:20 AM [facility] Mean Cell Hemoglobin Concentration 34.4 31.1 - 35.2 g/dL 07/23/2023 11:20 AM [facility] RDW-SD 41.0 37.5 - 49.7 fL 07/23/2023 11:20 AM [facility] Red Cell Diameter Width 13.6 11.6 - 15.5 % 07/23/2023 11:20 AM [facility] Platelet 324 160 - 397 K/uL 07/23/2023 11:20 AM [facility] Mean Platelet Volume 9.7 9.1 - 12.6 fL 07/23/2023 11:20 AM [facility] INRBC 0.0 0.0 - 0.1 /100 WBC 07/23/2023 11:20 AM [facility] Comment: The INRBC (instrument NRBC) value reflects the enumeration of nucleated red blood cells contained in a 200uL sample of whole blood analyzed by the instrument. This value may differ from the NRBC value reported in a manual differential, which is based on a 100 cell differential. Neutrophil % 63.5 43.2 - 72.7 % 07/23/2023 11:20 AM [facility] Lymphocyte % 20.3 16.8 - 46.2 % 07/23/2023 11:20 AM [facility] Monocyte % 11.9 5.1 - 12.5 % 07/23/2023 11:20 AM [facility] Eosinophil % 3.5 0.4 - 6.3 % 07/23/2023 11:20 AM [facility] Basophil % 0.5 0.2 - 1.4 % 07/23/2023 11:20 AM [facility] IGRE % 0.3 0.1 - 1.5 % 07/23/2023 11:20 AM [facility] Comment:The IGRE% includes M etamyelocytes, Myelocytes and Promyelocytes. Neutrophil Abs 3.63 1.95 - 7.25 K/uL 07/23/2023 11:20 AM [facility] Lymphocyte Abs 1.16 1.01 - 3.24 K/uL 07/23/2023 11:20 AM [facility] Monocyte Abs 0.68 0.24 - 0.85 K/uL 07/23/2023 11:20 AM [facility] Eosinophil Abs 0.20 0.02 - 0.50 K/uL 07/23/2023 11:20 AM [facility] Basophil Abs 0.03 0.02 - 0.09 K/uL 07/23/2023 11:20 AM [facility] IG Abs 0.02 0.01 - 0.12 K/uL 07/23/2023 11:20 AM [facility] Blood Peripheral blood specimen / Unknown Venipuncture / Unknown 07/23/2023 11:02 AM CHINESE LANGUAGE PROFESSOR 07/23/2023 11:12 AM CHINESE LANGUAGE PROFESSOR Tom OSORIO LAB BLOOD ORDERAB LES Performing Organization Address City/[facility]/ZIP Co de Phone Number [facility] Unless otherwise noted, all lab tests performed by: Division of Pathology and Laboratory Medicine [address] [place] [phone] * (ABNORMAL) aPTT (07/23/2023 11:02 AM [facility]) Activated PTT 23.8(L) 24.1 - 35.5 second(s) 07/23/2023 12:26 PM [facility] Blood Peripheral blood specimen / Unknown Venipuncture / Unknown 07/23/2023 11:02 AM CHINESE LANGUAGE PROFESSOR 07/23/2023 11:23 AM CHINESE LANGUAGE PROFESSOR Tom OSORIO LAB BLOOD ORDERAB LES [facility] Unless otherwise noted, all lab tests performed by: Division of Pathology and Laboratory Medicine [address] [place] [phone] * Erythrocyte Sedimentation Rate (07/23/2023 11:02 AM [facility]) Sedimentation Rate 15 <=30 mm/hr 2023 12:47 PM CHINESE LANGUAGE PROFESSOR [facility] Blood Peripheral blood specimen / Unknown Venipuncture / Unknown 07/23/2023 11:02 AM CHINESE LANGUAGE PROFESSOR 07/23/2023 11:12 AM CHINESE LANGUAGE PROFESSOR Tom OSORIO LAB BLOOD ORDERAB LES [facility] Unless otherwise noted, all lab tests performed by: Division of Pathology and Laboratory Medicine [address] [place] [phone] * Prothrombin Time with INR (07/23/2023 11:02 AM CHINESE LANGUAGE PROFESSOR) Pathologist [facility] Prothrombin Time 12.3 11.9 - 14.5 second(s) 07/23/2023 12:26 PM CHINESE LANGUAGE PROFESSOR [facility] International Normalization Ratio 0.91 0.87 - 1.12 07/23/2023 12:26 PM CHINESE LANGUAGE PROFESSOR [facility] Blood Peripheral blood specimen / Unknown Venipuncture / Unknown 07/23/2023 11:02 AM CHINESE LANGUAGE PROFESSOR 07/23/2023 11:23 AM CHINESE LANGUAGE PROFESSOR Tom OSORIO LAB BLOOD ORDERAB LES Performing Organization Address [facility] de Phone Number [facility] Unless otherwise noted, all lab tests performed by: Division of Pathology and Laboratory Medicine [address] [place] [phone] * Type and Screen (07/23/2023 11:02 AM CHINESE LANGUAGE PROFESSOR) Pathologist [facility] ABORh A POS 07/23/2023 10:31 AM CHINESE LANGUAGE PROFESSOR [facility] ABSC Negative 07/23/2023 10:31 AM CHINESE LANGUAGE PROFESSOR [facility] Clot Expiration 07/26/2023 23:59 07/23/2023 10:31 AM CHINESE LANGUAGE PROFESSOR [facility] Historical Record Check No History 07/23/2023 10:31 AM [facility] - [facility] Blood Peripheral blood specimen / Unknown Venipuncture / Unknown 07/23/2023 11:02 AM CHINESE LANGUAGE PROFESSOR 07/23/2023 11:13 AM CHINESE LANGUAGE PROFESSOR Tom OSORIO BLOOD BANK TEST O RDERABLES [facility] [address] [place] [address] [id number] [place] [address] * C-Reactive Protein (07/23/2023 11:02 AM CHINESE LANGUAGE PROFESSOR) [facility] CRP (C Reactive Protein) 0.76 mg/L 07/23/2023 12:20 PM CHINESE LANGUAGE PROFESSOR [facility] Blood Peripheral blood specimen / Unknown Venipuncture / Unknown 07/23/2023 11:02 AM CHINESE LANGUAGE PROFESSOR 07/23/2023 11:13 AM CHINESE LANGUAGE PROFESSOR Narrative [facility] - 07/23/2023 12:20 PM CHINESE LANGUAGE PROFESSOR Adult Reference ranges for HS CRP assay are as follows: Reference ranges when used to assess cardiac risk: <1.00 mg/L Low cardiovascular risk 1.00-3.00 mg/L Average cardiovascular risk >3.00 mg/L High cardiovascular risk Reference ranges when used to assess inflammatory responses: Less than or equal to 10.00 mg/L. Tom OSORIO LAB BLOOD ORDERAB LES Performing Organization Address City/[facility]/ZIP Co de Phone Number [facility] Unless otherwise noted, all lab tests performed by: Division of Pathology and Laboratory Medicine [address] [place] [phone] * BUN (07/23/2023 11:02 AM CHINESE LANGUAGE PROFESSOR) [facility] BUN 6 6 - 23 mg/dL 07/23/2023 12:15 PM CHINESE LANGUAGE PROFESSOR [facility] Blood Peripheral blood specimen / Unknown Venipuncture / Unknown 07/23/2023 11:02 AM CHINESE LANGUAGE PROFESSOR 07/23/2023 11:14 AM CHINESE LANGUAGE PROFESSOR Tom OSORIO LAB BLOOD ORDERAB LES [facility] Unless otherwise noted, all lab tests performed by: Division of Pathology and Laboratory Medicine [address] [place] [phone] * ALT (07/23/2023 11:02 AM CHINESE LANGUAGE PROFESSOR) [facility] ALT 26 <=33 U/L 07/23/2023 12:15 PM CHINESE LANGUAGE PROFESSOR [facility] Blood Peripheral blood specimen / Unknown Venipuncture / Unknown 07/23/2023 11:02 AM CHINESE LANGUAGE PROFESSOR 07/23/2023 11:14 AM CHINESE LANGUAGE PROFESSOR Tom OSORIO LAB BLOOD ORDERAB LES [facility] Unless otherwise noted, all lab tests performed by: Division of Pathology and Laboratory Medicine [address] [place] [phone] * Aspartate Aminotransferase (07/23/2023 11:02 AM CHINESE LANGUAGE PROFESSOR) Pathologist [facility] AST 29 <=32 U/L 07/23/2023 12:15 PM CHINESE LANGUAGE PROFESSOR [facility] Blood Peripheral blood specimen / Unknown Venipuncture / Unknown 07/23/2023 11:02 AM CHINESE LANGUAGE PROFESSOR 07/23/2023 11:14 AM CHINESE LANGUAGE PROFESSOR Tom OSORIO LAB BLOOD ORDERAB LES Performing Organization Address [facility]/ZIP Co de Phone Number [facility] Unless otherwise noted, all lab tests performed by: Division of Pathology and Laboratory Medicine [address] [place] [phone] * (ABNORMAL) TSH (07/23/2023 11:02 AM CHINESE LANGUAGE PROFESSOR) Pathologist [facility] Thyroid Stimulating Hormone 4.28(H) 0.27 - 4.20 mcunit/mL 07/23/2023 1:19 PM CHINESE LANGUAGE PROFESSOR [facility] Blood Peripheral blood specimen / Unknown Venipuncture / Unknown 07/23/2023 11:02 AM CHINESE LANGUAGE PROFESSOR 07/23/2023 11:14 AM CHINESE LANGUAGE PROFESSOR Tom OSORIO LAB BLOOD ORDERAB LES [facility] Unless otherwise noted, all lab tests performed by: Division of Pathology and Laboratory Medicine [address] [place] [phone] * Free T4 (07/23/2023 11:02 AM CHINESE LANGUAGE PROFESSOR) Pathologist [facility] T4 (Thyroxine) Free 1.23 0.93 - 1.70 ng/dL 07/23/2023 1:19 PM CHINESE LANGUAGE PROFESSOR [facility] Blood Peripheral blood specimen / Unknown Venipuncture / Unknown 07/23/2023 11:02 AM CHINESE LANGUAGE PROFESSOR 07/23/2023 11:14 AM CHINESE LANGUAGE PROFESSOR Tom OSORIO LAB BLOOD ORDERAB LES Performing Organization Address City/[facility] de Phone Number [facility] Unless otherwise noted, all lab tests performed by: Division of Pathology and Laboratory Medicine [address] [place] [phone] * Total Protein (07/23/2023 11:02 AM CHINESE LANGUAGE PROFESSOR) [facility] Tot Protein 7.5 6.4 - 8.3 gm/dL 07/23/2023 12:15 PM CHINESE LANGUAGE PROFESSOR [facility] Blood Peripheral blood specimen / Unknown Venipuncture / Unknown 07/23/2023 11:02 AM CHINESE LANGUAGE PROFESSOR 07/23/2023 11:14 AM CHINESE LANGUAGE PROFESSOR Narrative [facility] - 07/23/2023 12:15 PM CHINESE LANGUAGE PROFESSOR Reference range established based on adult population Tom OSORIO LAB BLOOD ORDERAB LES Performing Organization Address [facility] de Phone Number [facility] Unless otherwise noted, all lab tests performed by: Division of Pathology and Laboratory Medicine [address] [place] [phone] * Phosphorus Level (07/23/2023 11:02 AM CHINESE LANGUAGE PROFESSOR) [facility] Phosphorus Level 3.5 2.5 - 4.5 mg/dL 07/23/2023 12:15 PM CHINESE LANGUAGE PROFESSOR [facility] Blood Peripheral blood specimen / Unknown Venipuncture / Unknown 07/23/2023 11:02 AM CHINESE LANGUAGE PROFESSOR 07/23/2023 11:14 AM CHINESE LANGUAGE PROFESSOR Tom OSORIO LAB BLOOD ORDERAB LES Performing Organization Address [facility] Co de Phone Number [facility] Unless otherwise noted, all lab tests performed by: Division of Pathology and Laboratory Medicine [address] [place] [phone] * Magnesium Level (07/23/2023 11:02 AM CHINESE LANGUAGE PROFESSOR) [facility] Magnesium Level 2.0 1.6 - 2.6 mg/dL 07/23/2023 12:15 PM CHINESE LANGUAGE PROFESSOR [facility] Blood Peripheral blood specimen / Unknown Venipuncture / Unknown 07/23/2023 11:02 AM CHINESE LANGUAGE PROFESSOR 07/23/2023 11:14 AM CHINESE LANGUAGE PROFESSOR Tom OSORIO LAB BLOOD ORDERAB LES Performing Organization Address City/[facility]/ZIP Co de Phone Number [facility] Unless otherwise noted, all lab tests performed by: Division of Pathology and Laboratory Medicine [address] [place] [phone] * (ABNORMAL) LDH (07/23/2023 11:02 AM CHINESE LANGUAGE PROFESSOR) [facility] LDH 216(H) 135 - 214 U/L 07/23/2023 12:09 PM CHINESE LANGUAGE PROFESSOR [facility] Blood Peripheral blood specimen / Unknown Venipuncture / Unknown 07/23/2023 11:02 AM CHINESE LANGUAGE PROFESSOR 07/23/2023 11:13 AM CHINESE LANGUAGE PROFESSOR Narrative [facility] - 07/23/2023 12:09 PM CHINESE LANGUAGE PROFESSOR Results greater than 1651 U/L may not be reliable due to matrix effect with extended dilution as it exceeds the sign designer's recommended limit. Caution should be exercised when interpreting such values and done in conjunction with clinical context. Tom OSORIO LAB BLOOD ORDERAB LES [facility] Unless otherwise noted, all lab tests performed by: Division of Pathology and Laboratory Medicine [address] [place] [phone] * (ABNORMAL) Hemoglobin A1c (07/23/2023 11:02 AM CHINESE LANGUAGE PROFESSOR) [facility] Hemoglobin A1c 6.3(H) 4.3 - 5.6 % 07/23/2023 12:29 PM CHINESE LANGUAGE PROFESSOR [facility] Blood Peripheral blood specimen / Unknown Venipuncture / Unknown 07/23/2023 11:02 AM CHINESE LANGUAGE PROFESSOR 07/23/2023 11:12 AM CHINESE LANGUAGE PROFESSOR Narrative [facility] - 07/23/2023 12:29 PM [facility] HbA1c values >=6.5% are diagnostic of diabetes mellitus. Diagnosis should be confirmed by repeat testing. Therapeutic Action suggested: >8.0% HbA1c; Goal of therapy: <7.0% HbA1c Tom OSORIO LAB BLOOD ORDERAB LES [employer] [facility] Unless otherwise noted, all lab tests performed by: Division of Pathology and Laboratory Medicine [address] [place] [address] [phone] * Creatinine (07/23/2023 11:02 AM [facility]) Creatinine 0.70 0.51 - 0.95 mg/dL 07/23/2023 12:15 PM [facility] eGFR 94 >=60 mL/min/1.7 3 sq. m 07/23/2023 12:15 PM [facility] Comment: The eGFRcr is calculated with the 2020 CKD-EPI creatinine equation using creatinine, patient's age, and sex for adults 18 years of age and older. Other factors, especially muscle mass, may affect accuracy and need to be considered. According to the Kidney Disease: Improving Global Outcomes (KDIGO) CKD Work Group 2012 Clinical Practice Guideline, chronic kidney disease (CKD) is defined as the abnormalities of kidney structure or function, present for more than 3 months, with implications for health. CKD should be classified by cause, GFR category, and albuminuria category. KDIGO guidelines provide the following GFR categories. Stage / Description / GFR mL/min/1.73 m2: G1* / Normal or high / >= 90 G2* / Mildly decreased / 60-89 G3a / Mildly to moderately decreased / 45-59 G3b / Moderately to severely decreased / 30-44 G4 / Severely decreased / 15-29 G5 / Kidney failure / <15 *In the absence of evidence of kidney damage, neither G1 nor G2 fulfill criteria for CKD. Blood Peripheral blood specimen / Unknown Venipuncture / Unknown 07/23/2023 11:02 AM CHINESE LANGUAGE PROFESSOR 07/23/2023 11:14 AM CHINESE LANGUAGE PROFESSOR Tom OSORIO LAB BLOOD ORDERAB LES Performing Organization Address City/[facility] Co de Phone Number [facility] Unless otherwise noted, all lab tests performed by: Division of Pathology and Laboratory Medicine [address] [place] [phone] * Calcium Level (07/23/2023 11:02 AM CHINESE LANGUAGE PROFESSOR) Calcium Level Total 9.4 8.2 - 10.2 mg/dL 07/23/2023 12:15 PM CHINESE LANGUAGE PROFESSOR [facility] Blood Peripheral blood specimen / Unknown Venipuncture / Unknown 07/23/2023 11:02 AM CHINESE LANGUAGE PROFESSOR 07/23/2023 11:14 AM CHINESE LANGUAGE PROFESSOR Tom OSORIO LAB BLOOD ORDERAB LES Performing Organization Address [facility] Co de Phone Number [facility] Unless otherwise noted, all lab tests performed by: Division of Pathology and Laboratory Medicine [address] [place] [address] [phone] * Bilirubin Total (07/23/2023 11:02 AM CHINESE LANGUAGE PROFESSOR) Bilirubin Total 0.3 0.0 - 1.2 mg/dL 07/23/2023 12:15 PM CHINESE LANGUAGE PROFESSOR [facility] Blood Peripheral blood specimen / Unknown Venipuncture / Unknown 07/23/2023 11:02 AM CHINESE LANGUAGE PROFESSOR 07/23/2023 11:14 AM CHINESE LANGUAGE PROFESSOR Narrative [facility] - 07/23/2023 12:15 PM CHINESE LANGUAGE PROFESSOR Indocyanine Green (ICG) may cause falsely elevated bilirubin results. Total and direct bilirubin must not be measured from samples containing indocyanine green. False elevation of total bilirubin can be seen in patients with IgG concentrations above 28 g/L. Tom OSORIO LAB BLOOD ORDERAB LES Performing Organization Address [facility] Co de Phone Number [facility] Unless otherwise noted, all lab tests performed by: Division of Pathology and Laboratory Medicine [address] [place] [id number] * Albumin Level (07/23/2023 11:02 AM CHINESE LANGUAGE PROFESSOR) Pathologist [facility] Albumin Level 4.5 3.5 - 5.2 gm/dL 07/23/2023 12:15 PM CHINESE LANGUAGE PROFESSOR [facility] Blood Peripheral blood specimen / Unknown Venipuncture / Unknown 07/23/2023 11:02 AM CHINESE LANGUAGE PROFESSOR 07/23/2023 11:14 AM CHINESE LANGUAGE PROFESSOR Tom OSORIO LAB BLOOD ORDERAB LES [facility] Unless otherwise noted, all lab tests performed by: Division of Pathology and Laboratory Medicine [address] [place] [id number] * (ABNORMAL) Electrolyte Panel (07/23/2023 11:02 AM [facility]) [facility] Sodium Level 132(L) 136 - 145 mmol/L 07/23/2023 12:15 PM [facility] Potassium Level 4.2 3.4 - 4.5 mmol/L 07/23/2023 12:15 PM CHINESE LANGUAGE PROFESSOR [facility] Chloride 97(L) 98 - 107 mmol/L 07/23/2023 12:15 PM [facility] CO2 28 22 - 29 mmol/L 07/23/2023 12:15 PM [facility] Anion Gap 7 4 - 14 mmol/L 07/23/2023 12:15 PM CHINESE LANGUAGE PROFESSOR [facility] Blood Peripheral blood specimen / Unknown Venipuncture / Unknown 07/23/2023 11:02 AM CHINESE LANGUAGE PROFESSOR 07/23/2023 11:14 AM CHINESE LANGUAGE PROFESSOR Tom OSORIO LAB BLOOD ORDERAB LES [facility] Unless otherwise noted, all lab tests performed by: Division of Pathology and Laboratory Medicine [address] [place] [id number] * Confirm ABORh (07/23/2023 10:59 AM CHINESE LANGUAGE PROFESSOR) Pathologist [facility] ABORh Confirm A POS 07/23/2023 10:59 AM CHINESE LANGUAGE PROFESSOR [facility] Blood Peripheral blood specimen / Unknown Venipuncture / Unknown 07/23/2023 10:59 AM CHINESE LANGUAGE PROFESSOR 07/23/2023 11:13 AM CHINESE LANGUAGE PROFESSOR Tom OSORIO BLOOD BANK TEST O RDERABLES [facility] [address] [place] [address] * OSI Nuclear Diagnostic Exam (07/04/2023 1:07 PM CHINESE LANGUAGE PROFESSOR) Narrative Systemgenerated, Documentation - 07/18/2023 1:07 PM CHINESE LANGUAGE PROFESSOR Study acquired at another institution. For comparison only. No MD Tubbs originated interpretation requested or available. Valdemar BAEZAG OUTSIDE IMAGE ORDERABLES * OSI Barium Swallow (07/02/2023 1:07 PM CHINESE LANGUAGE PROFESSOR) Narrative Systemgenerated, Documentation - 07/18/2023 1:07 PM CHINESE LANGUAGE PROFESSOR Study acquired at another institution. For comparison only. No MD Tubbs originated interpretation requested or available. Valdemar BAEZAG OUTSIDE IMAGE ORDERABLES * OSI Chest (03/29/2023 1:08 PM CHINESE LANGUAGE PROFESSOR) Narrative Systemgenerated, Documentation - 07/18/2023 1:08 PM CHINESE LANGUAGE PROFESSOR Study acquired at another institution. For comparison only. No MD Tubbs originated interpretation requested or available. Valdemar Ro MD IMG OUTSIDE IMAGE ORDERABLES * OSI Bone Scan (03/29/2023 1:07 PM CHINESE LANGUAGE PROFESSOR) Narrative Systemgenerated, Documentation - 07/18/2023 1:07 PM CHINESE LANGUAGE PROFESSOR Study acquired at another institution. For comparison only. No MD Tubbs originated interpretation requested or available. Valdemar SERRA OUTSIDE IMAGE ORDERABLES after 09/18/2022 Care Teams Primer Expeditor And Drier Relationship Specialty Start Date End Date Valdemar Ro MD [address] [place] [id number] PCP - General Orthopaedic Oncology 06/30/23
[2023-09-18] MEDS ORDERED: TENECTEPLASE 50 MG/10 ML VIAL IV ONE (17:34)
--- NOTE | 2023-09-18 17:41 | RAD REPORT ---
EXAM DESCRIPTION: CT - Ct Stroke Brain Wo Cont - 09/18/2023 5:13 pm CLINICAL HISTORY: STROKE ALERT Headache, drowsiness, CVA symptomology COMPARISON: SINUS W O CONTRAST dated 05/13/2015 TECHNIQUE: All CT scans are performed using dose optimization technique as appropriate and may inclu de automated exposure control or mA/KV adjustment according to patient size. FINDINGS: No intracranial hemorrhage, hydrocephalus or extra-axial fluid collection.Moderate brain a trophy seen. 8 mm low-density structure in the left basal ganglia likely old lacunar infarct.No areas of brain edema or evidence of midline shift. The paranasal sinuses and mastoids are clear. The calvarium is intact. IMPRESSION: No acute intracranial abnormality. The findings were discussed with Dr. Fulton in the ER On 09/18/2023 at 5:25 p.m. by telephone.
[2023-09-18 17:57] LABS: Absolute Eosinophils 0.1 K/uL (0-0.5); Absolute Lymphocytes (CBC) 1.1 K/uL (0.7-4.9); Absolute Monocytes 0.6 K/uL (0.1-1.3); Absolute Neutrophil 3.6 K/uL (1.8-8.0); Basophils % 0.5 % (0-1.3); Eosinophils % 1.8 % (0-4.4); Hematocrit 39.3 % (36.0-45.0); Hemoglobin 13.4 g/dL (12.0-15.0); Lymphocytes % 19.8 % (15.3-44.8); MCH 29.4 pg (27.0-35.0); MCHC 34.1 g/dL (32.0-36.0); MCV 86.2 fL (80-100); MPV 7.9 fL (7.6-11.3); Monocytes % 11.5 % (3.3-12.3); Neutrophils % 66.4 % (41.7-73.7); Nucleated Red Blood Cells % 0.1 % (0-0); Platelets 309 thou/uL (152-406); RBC Red Blood Cell Count 4.55 M/uL (3.86-4.86); Red Cell Distribution Width 14.5 % (12.1-15.2)
[2023-09-18 17:59] LABS: PTT, Activated Partial Thromb 29.1 SECONDS (24.3-36.9); Protime INR 0.91
--- NOTE | 2023-09-18 18:06 | RAD REPORT ---
EXAM DESCRIPTION: RAD - Chest Single View - 09/18/2023 5:53 pm CLINICAL HISTORY: stroke alert Chest pain. COMPARISON: Chest Pa And Lat (2 Views) dated 03/29/2023; Chest Pa And Lat (2 Views) dated 11/29/2018; Chest Single View dated 08/01/2018; CHEST PA AND LAT 2 VIEW dated 10/11/2009 FINDINGS: Portable technique limits examination quality. The lungs are grossly clear. The heart is normal in size. No displaced fractures. IMPRESSION: No acute intrathoracic process suspected.
[2023-09-18 18:18] LABS: Anion Gap 8.9 mEq/L (5.0-15.0); Potassium 3.9 mEq/L (3.5-5.1); Troponin High Sensitivity 4.1 pg/mL (<58.9)
--- NOTE | 2023-09-18 18:24 | ER ---
Nurse's Notes [facility] Name: Darby Lau Age: 67 yrs Sex: Female : 1955 Arrival Date: 09/18/2023 Time: 16:58 Bed 7 Private MD: Diagnosis: Cerebral infarction, unspecified;Aphasia following cerebral infarction;Weakness Presentation: 09/17 17:00 Chief complaint: EMS states: Toned out for s/s of stroke. Upon arrival pt has weakness ld1 to left arm/leg, facial droop to left side of face, Aphasia. Pt refused life flight, notified EMS of out of hospital DNR. Denies pain. 17:00 Coronavirus screen: At this time, the client does not indicate any symptoms associated ld1 with coronavirus-19. Ebola Screen: No symptoms or risks identified at this time. An acute neurological deficit is present. The charge nurse has been notified. The patients blood glucose was checked before arriving to the hospital and was found to be normal. Initial Sepsis Screen: Does the patient meet any 2 criteria? No. Patient's initial sepsis screen is negative. Does the patient have a suspected source of infection? No. Patient's initial sepsis screen is negative. Risk Assessment: Do you want to hurt yourself or someone else? Patient reports no desire to harm self or others. Onset of symptoms was September 18, 2023 at 16:00. 17:00 Method Of Arrival: EMS: [facility] ld1 17:00 Acuity: [facility] 2 ld1 Triage Assessment: 17:00 Neuro: Reports aphasia. ld1 17:08 The onset of the patients symptoms was September 18, 2023 at 16:00. General: Appears in no ld1 apparent distress. comfortable, Behavior is calm, cooperative, appropriate for age. Pain: Denies pain. EENT: No signs and/or symptoms were reported regarding the EENT system. Neuro: Level of Consciousness is awake, alert, obeys commands, Oriented to person, place, time, situation, Appropriate for age Events Director are weak on left Speech with expressive aphasia noted, Facial droop on left. Cardiovascular: Capillary refill < 3 seconds Patient's skin is warm and dry. Respiratory: Airway is patent Respiratory effort is even, unlabored. GI: Abdomen is round non-distended. : No signs and/or symptoms were reported regarding the genitourinary system. Derm: No signs and/or symptoms reported regarding the dermatologic system. Derm: No signs and/or symptoms reported regarding the dermatologic system. Musculoskeletal: No signs and/or symptoms reported regarding the musculoskeletal system. Stroke Activation: Symptom onset < 3 hours Physician: Stroke Attending; Name: ; Notified At: 16:59; Arrived At: Physician: Chief Stroke Resident; Name: ; Notified At: 16:59; Arrived At: Physician: Stroke Resident; Name: ; Notified At: 16:59; Arrived At: Physician: ED Attending; Name: ; Notified At: 16:59; Arrived At: Physician: ED Resident; Name: ; Notified At: 16:59; Arrived At: Historical: - Allergies: 17:02 Cipro; ld1 17:02 Codeine; ld1 17:02 Darvocet-N 100; ld1 17:02 Sulfa (Sulfonamide Antibiotics); ld1 - Home Meds: 17:02 losartan 50 mg Oral tab 1 tab once daily [Active]; Insulin pump [Active]; omeprazole 20 ld1 mg Oral cpDR 1 cap once daily [Active]; gabapentin 300 mg Oral cap 1 cap 3 times per day [Active]; Co Q-10 100 mg Oral cap [Active]; Benadryl 25 mg Oral cap 2 caps nightly [Active]; aspirin 81 mg Oral TbEC 1 tab once daily [Active]; tramadol 50 mg oral tablet 2 tabs every day at bedtime [Active]; - PMHx: 17:02 Diabetes - IDDM; Back pain; osteoarthritis; ld1 - Immunization history:: Adult Immunizations up to date. - Infectious Disease History:: Denies. - Social history:: Smoking status: Patient denies any tobacco usage or history of. - Family history:: not pertinent. - Hospitalizations: : No recent hospitalization is reported. Screenin:[address] [place] Swallow Protocol Brief Cognitive Screen What is your name? Abnormal: patient ap3 cognitively knows answers, but unable to vocalize. can mouth the words. . Where are you right now? Normal, What year is it? Normal. Oral Mechanism Examination Facial Symmetry: Abnormal: patient has asymmetry . Motion: Abnormal: . Lip Closure: Abnormal: . Oral Mechanism Result: Abnormal: . 3 oz Water Swallow Challenge: Pt able to drink all water without stopping, coughing, choking or throat clearing: No Result: FAIL Notified: George Fulton MD. 18:09 [facility] ED Fall Risk Assessment (Adult) History of falling in the last 3 months, ld1 including since admission No falls in past 3 months (0 pts). Abuse screen: Denies threats or abuse. Denies injuries from another. Nutritional screening: No deficits noted. Tuberculosis screening: No symptoms or risk factors identified. Assessment: 16:59 Reassessment: Code stroke called at 1659. ld1 17:05 VAN Scoring: Arm Drift: Severe drift Visual Disturbance: No visual disturbance noted. ld1 Aphasia: Expressive aphasia noted. Provider notified of +VAN scoring. Neglect: No neglect noted. 17:06 Reassessment: Pt to CT 1706. ld1 17:36 Reassessment: Unable to get blood from EMS line, missed attempt at new line. Notified ld1 ERP and charge nurse. Tech at bedside attempting to get IV access for blood work. 17:56 [place] Swallow Protocol 3 oz Water Swallow Challenge: Pt able to drink all water without ld1 stopping, coughing, choking or throat clearing: No Result: FAIL Notified: George Fulton MD. TNKase (Tenecteplase) Screening: Indications: Treatment will start within 4.5 hours onset of symptoms: Yes. 18:09 Reassessment: Patient appears in no apparent distress at this time. No changes from ld1 previously documented assessment. Patient denies pain at this time. Vital Signs: 17:36 BP 161 / 69; Pulse 86; Resp 18; Temp 97.8(TE); Pulse Ox 100% on R/A; Weight 68.95 kg; ld1 Height 5 ft. 4 in. ; Pain 0/10; 18:06 BP 151 / 87; Pulse 80; Resp 18; Pulse Ox 100% on R/A; ld1 18:17 BP 138 / 71; Pulse 79; Resp 18; Pulse Ox 100% on R/A; ld1 17:36 Body Mass Index 26.09 (68.95 kg, 162.56 cm) ld1 17:36 Pain Scale: Adult ld1 NIH Stroke Scale Scores: 17:05 NIHSS Score: 10 ld1 17:06 NIHSS Score: 10 rn 19:30 NIHSS Score: 0 rv 20:02 NIHSS Score: 0 rv ED Course: 16:59 Patient arrived in ED. ld1 17:01 George Fulton MD is Attending Physician. rn 17:08 Arm band placed on right wrist. ld1 17:10 Patient has correct armband on for positive identification. Placed in gown. Bed in low ld1 position. Call light in reach. Side rails up X2. manager monitoring on. Pulse ox on. NIBP on. 17:10 Door closed. Noise minimized. Warm blanket given. Pillow given. TNK consent signed. ld1 17:10 No provider procedures requiring assistance completed. ld1 17:12 Triage completed. ld1 17:13 Maintain EMS IV. Dressing intact. Good blood return noted. Site clean \T\ dry. Gauge \T\ ld 1 site: 20G LAC. 17:14 Lauryn Ramirez, RN is Primary Nurse. ld1 17:15 CT Stroke Brain w/o Contrast In Process Unspecified. EDMS 17:32 Missed attempt(s): 22 gauge in right forearm. ld1 17:44 Basic Metabolic Panel Sent. bc6 17:44 CBC with Diff Sent. bc6 17:44 High Sensitivity Troponin Sent. bc6 17:44 Protime (+inr) Sent. bc6 17:44 Ptt, Activated Sent. bc6 17:44 Initial lab(s) drawn, by me, sent to lab. Inserted saline lock: 24 gauge in left upper bc6 arm, using aseptic technique. Blood collected. 17:55 Stroke CXR 1 View In Process Unspecified. EDMS 18:23 Jonatan To MD is Hospitalizing Provider. rn 20:02 Patient admitted, IV remains in place. rv Administered Medications: 17:51 Drug: TNK FOR STROKE - Tenecteplase IV 0.25 mg/kg IV at per protocol once; MAX ld1 DOSE 25 mg, IVP over 5 seconds {Co-Signature: me1 (Bren Recio RN).} Route: IV; Rate: per protocol; Site: left antecubital; Medication: 20:02 VIS not applicable for this client. rv Point of Care Testing: Blood Glucose: 17:08 Blood Glucose: 147 mg/dL; ld1 Ranges: Outcome: 18:24 Decision to Hospitalize by Provider. rn 20:01 Admitted to ICU accompanied by nurse, via stretcher, room 2, on monitor, with chart, rv Report called to VALENTINA KELLY 20:01 Condition: good 20:01 Instructed on the need for admit, 20:02 Patient left the ED. rv NIH Stroke Scale - NIH Stroke Score Date: 09/18/2023 Time: 17:05 Total Score = 10 10. Dysarthria (speech clarity - read or repeat words) - 1(Mild to Moderate) 11. Extinction and Inattention (visual/tactile/auditory/spatial/personal) - 0(No abnormality) 1a. Level of Consciousness (LOC) - 0(Alert) 1b. Level of Consciousness (LOC) (Month \T\ Age) - 0(Both) 1c. LOC Commands (Open \T\ Closes Eyes/Consulting Solution Manager) - 0(Both) 2. Best Gaze (Lateral Gaze Paresis) - 0(Normal) 3. Visual Field Loss - 0(No visual loss) 4. Facial Palsy - 1(Minor Paralysis) 5a. Left Arm: Motor (10-second hold) - 3(No effort against gravity) 5b. Right Arm: Motor (10-second hold) - 0(No drift) 6a. Left Leg: Motor (5-second hold - always test supine) - 3(No effort against gravity) 6b. Right Leg: Motor (5-second hold - always test supine) - 0(No drift) 7. Limb Ataxia (finger/nose \T\ heel/fitzpatrick - test with eyes open) - 0(Absent) 8. Sensory Loss (pinprick arms/legs/face) - 1(Mild to moderate loss) 9. Best Language: Aphasia (description/naming/reading) - 1(Mild to moderate aphasia) Initials: ld1 NIH Stroke Scale - NIH Stroke Score Date: 09/18/2023 Time: 17:06 Total Score = 10 10. Dysarthria (speech clarity - read or repeat words) - 1(Mild to Moderate) 11. Extinction and Inattention (visual/tactile/auditory/spatial/personal) - 0(No abnormality) 1a. Level of Consciousness (LOC) - 0(Alert) 1b. Level of Consciousness (LOC) (Month \T\ Age) - 0(Both) 1c. LOC Commands (Open \T\ Closes Eyes/Consulting Solution Manager) - 0(Both) 2. Best Gaze (Lateral Gaze Paresis) - 0(Normal) 3. Visual Field Loss - 0(No visual loss) 4. Facial Palsy - 1(Minor Paralysis) 5a. Left Arm: Motor (10-second hold) - 3(No effort against gravity) 5b. Right Arm: Motor (10-second hold) - 0(No drift) 6a. Left Leg: Motor (5-second hold - always test supine) - 3(No effort against gravity) 6b. Right Leg: Motor (5-second hold - always test supine) - 0(No drift) 7. Limb Ataxia (finger/nose \T\ heel/fitzpatrick - test with eyes open) - 0(Absent) 8. Sensory Loss (pinprick arms/legs/face) - 1(Mild to moderate loss) 9. Best Language: Aphasia (description/naming/reading) - 1(Mild to moderate aphasia) Initials: rn NIH Stroke Scale - NIH Stroke Score Date: 09/18/2023 Time: 19:30 Total Score = 0 10. Dysarthria (speech clarity - read or repeat words) - 0(Normal) 11. Extinction and Inattention (visual/tactile/auditory/spatial/personal) - 0(No abnormality) 1a. Level of Consciousness (LOC) - 0(Alert) 1b. Level of Consciousness (LOC) (Month \T\ Age) - 0(Both) 1c. LOC Commands (Open \T\ Closes Eyes/Consulting Solution Manager) - 0(Both) 2. Best Gaze (Lateral Gaze Paresis) - 0(Normal) 3. Visual Field Loss - 0(No visual loss) 4. Facial Palsy - 0(Normal) 5a. Left Arm: Motor (10-second hold) - 0(No drift) 5b. Right Arm: Motor (10-second hold) - 0(No drift) 6a. Left Leg: Motor (5-second hold - always test supine) - 0(No drift) 6b. Right Leg: Motor (5-second hold - always test supine) - 0(No drift) 7. Limb Ataxia (finger/nose \T\ heel/fitzpatrick - test with eyes open) - 0(Absent) 8. Sensory Loss (pinprick arms/legs/face) - 0(Normal) 9. Best Language: Aphasia (description/naming/reading) - 0(No aphasia) Initials: juan carlos NIH Stroke Scale - NIH Stroke Score Date: 09/18/2023 Time: 20:02 Total Score = 0 10. Dysarthria (speech clarity - read or repeat words) - 0(Normal) 11. Extinction and Inattention (visual/tactile/auditory/spatial/personal) - 0(No abnormality) 1a. Level of Consciousness (LOC) - 0(Alert) 1b. Level of Consciousness (LOC) (Month \T\ Age) - 0(Both) 1c. LOC Commands (Open \T\ Closes Eyes/Consulting Solution Manager) - 0(Both) 2. Best Gaze (Lateral Gaze Paresis) - 0(Normal) 3. Visual Field Loss - 0(No visual loss) 4. Facial Palsy - 0(Normal) 5a. Left Arm: Motor (10-second hold) - 0(No drift) 5b. Right Arm: Motor (10-second hold) - 0(No drift) 6a. Left Leg: Motor (5-second hold - always test supine) - 0(No drift) 6b. Right Leg: Motor (5-second hold - always test supine) - 0(No drift) 7. Limb Ataxia (finger/nose \T\ heel/fitzpatrick - test with eyes open) - 0(Absent) 8. Sensory Loss (pinprick arms/legs/face) - 0(Normal) 9. Best Language: Aphasia (description/naming/reading) - 0(No aphasia) Initials: rv Signatures: Dispatcher [employer] George Washington MD MD rn Prokisch, Amanda, RN RN ap3 Efe Hoffman RN RN rv Sims, Lauren, RN RN ld1 Cheryl Chavira6 Bren Recio RN me1 Corrections: (The following items were deleted from the chart) 17:17 17:00 Chief complaint: EMS states: Toned out for s/s of stroke. Upon arrival pt ld1 has weakness to left arm/leg, facial droop to left side of face, Aphasia. Denies pain. ld1
--- NOTE | 2023-09-18 18:24 | EDPHYS ---
Physician Documentation [facility] Name: Darby Lau Age: 67 yrs Sex: Female : 1955 Arrival Date: 09/18/2023 Time: 16:58 Bed 7 Private MD: ED Physician George Fulton HPI: 09/17 17:10 This 67 yrs old Female presents to ER via Unassigned with complaints of S/S of Possible rn Stroke. 17:10 The patient's problem is reported as weakness. Onset: The symptoms/episode rn began/occurred at 16:00. Duration: The episode is continuous. Context:. The symptoms are alleviated by nothing. The symptoms are aggravated by nothing. Severity of symptoms: At their worst the symptoms were moderate in the emergency department the symptoms are unchanged. The patient has not experienced similar symptoms in the past. Patient reports sudden onset left arm and leg weakness along with speech problems and dizziness. Symptoms are constant and not improving. Has never had stroke before. Patient takes 81 mg aspirin but nothing stronger than that or any oral anticoagulants otherwise. Denies trauma. No active bleeding. No recent surgery. No history of brain tumor or cancer. No seizure at onset. EMS was trying to fly patient for code stroke, patient declined air transport and came here instead.. Historical: - Allergies: 17:02 Cipro; ld1 17:02 Codeine; ld1 17:02 Darvocet-N 100; ld1 17:02 Sulfa (Sulfonamide Antibiotics); ld1 - Home Meds: 17:02 losartan 50 mg Oral tab 1 tab once daily [Active]; Insulin pump [Active]; omeprazole 20 ld1 mg Oral cpDR 1 cap once daily [Active]; gabapentin 300 mg Oral cap 1 cap 3 times per day [Active]; Co Q-10 100 mg Oral cap [Active]; Benadryl 25 mg Oral cap 2 caps nightly [Active]; aspirin 81 mg Oral TbEC 1 tab once daily [Active]; tramadol 50 mg oral tablet 2 tabs every day at bedtime [Active]; - PMHx: 17:02 Diabetes - IDDM; Back pain; osteoarthritis; ld1 - Immunization history:: Adult Immunizations up to date. - Infectious Disease History:: Denies. - Social history:: Smoking status: Patient denies any tobacco usage or history of. - Family history:: not pertinent. - Hospitalizations: : No recent hospitalization is reported. ROS: 17:10 Constitutional: Negative for fever, chills, and weight loss, Cardiovascular: Negative rn for chest pain, palpitations, and edema, Respiratory: Negative for shortness of breath, cough, wheezing, and pleuritic chest pain, Abdomen/GI: Negative for abdominal pain, nausea, vomiting, diarrhea, and constipation, MS/Extremity: Negative for injury and deformity, Skin: Negative for injury, rash, and discoloration, Neuro: Positive for weakness to left side of body Exam: 17:10 Constitutional: This is a well developed, well nourished patient who is awake, alert, rn and in no acute distress. Head/Face: Normocephalic, atraumatic. Cardiovascular: Regular rate and rhythm. No pulse deficits. Respiratory: No increased work of breathing, no retractions or nasal flaring. Abdomen/GI: Soft, non-tender MS/ Extremity: Pulses equal, no cyanosis. Neuro: Awake and alert, GCS 15, oriented to person, place, and situation. Left partial lower facial weakness noted. Cannot lift left arm or left leg off of bed due to weakness. Decree sensation left arm and left leg. Broken speech but is intelligible. Moderate aphasia 17:58 ECG was reviewed by the Attending Physician. rn Vital Signs: 17:36 BP 161 / 69; Pulse 86; Resp 18; Temp 97.8(TE); Pulse Ox 100% on R/A; Weight 68.95 kg; ld1 Height 5 ft. 4 in. ; Pain 0/10; 18:06 BP 151 / 87; Pulse 80; Resp 18; Pulse Ox 100% on R/A; ld1 18:17 BP 138 / 71; Pulse 79; Resp 18; Pulse Ox 100% on R/A; ld1 17:36 Body Mass Index 26.09 (68.95 kg, 162.56 cm) ld1 17:36 Pain Scale: Adult ld1 NIH Stroke Scale Scores: 17:05 NIHSS Score: 10 ld1 17:06 NIHSS Score: 10 rn 19:30 NIHSS Score: 0 rv 20:02 NIHSS Score: 0 rv MDM: 17:01 Patient medically screened. rn 17:30 ED course: Delay of TNK administration due to delay in radiology read. Waiting on rn callback and read. 17:35 ED course: Discussed CT head with radiologist Dr. Carlson, states no acute finding on CT rn head without. Consented patient for TNKase. TNKase ordered. Patient does not have any identifiable contraindications for TNK.. 17:46 ED course: TNK administered. rn 18:17 Differential diagnosis: CVA, TIA, metabolic disorder. Data reviewed: vital signs, rn nurses notes, lab test result(s), EKG, radiologic studies, CT scan, and as a result, I will admit patient. Consideration of Admission/Observation Patient was admitted/placed on observation. Escalation of care including admission/observation considered. Counseling: I had a detailed discussion with the patient and/or guardian regarding the historical points, exam findings, and any diagnostic results supporting the discharge/admit diagnosis, lab results, radiology results, the need for further work-up and treatment in the hospital. Response to treatment: the patient's symptoms have mildly improved after treatment, and as a result, I will admit patient. 18:23 ED course: I personally spent 35 minutes engaged in work directly related to the rn individual patient's care. This does not include any time spent performing procedures. The patient has been deemed critically ill because of acute cerebral infarction requiring TNKase administration, rapid assessment and consultations with multiple physicians as well as family cooperation given patient with severe aphasia. 09/17 17:06 Order name: Basic Metabolic Panel; Complete Time: 18:22 rn 09/17 17:06 Order name: CBC with Diff; Complete Time: 18:11 rn 09/17 17:06 Order name: High Sensitivity Troponin; Complete Time: 18:22 rn 09/17 17:06 Order name: Protime (+inr); Complete Time: 18:11 rn 09/17 17:06 Order name: Ptt, Activated; Complete Time: 18:11 rn 09/17 17:18 Order name: Glucose, Ancillary Testing; Complete Time: 17:46 EDOK 09/17 17:06 Order name: CT Stroke Brain w/o Contrast; Complete Time: 17:46 rn 09/17 17:06 Order name: Stroke CXR 1 View; Complete Time: 18:11 rn 09/17 18:56 Order name: CT EDMS 09/17 18:58 Order name: CT EDMS 09/17 17:06 Order name: Accucheck; Complete Time: 17:14 rn 09/17 17:06 Order name: Cardiac monitoring; Complete Time: 17:16 rn 09/17 17:06 Order name: EKG - Nurse/Tech; Complete Time: 17:16 rn 09/17 17:06 Order name: IV Saline Lock; Complete Time: 17:14 rn 09/17 17:06 Order name: Labs collected and sent; Complete Time: 17:44 rn 09/17 17:06 Order name: NPO; Complete Time: 17:14 rn 09/17 17:06 Order name: O2 Per Protocol; Complete Time: 17:14 rn 09/17 17:06 Order name: O2 Sat Monitoring; Complete Time: 17:14 rn 09/17 17:06 Order name: Stroke Swallow Screen; Complete Time: 17:56 rn EC:58 Rate is 87 beats/min. Rhythm is regular. QRS [place] is Normal. VT interval is normal. QRS rn interval is normal. QT interval is normal. No Q waves. T waves are Normal. No ST changes noted. Clinical impression: Normal ECG. Interpreted by me. Reviewed by me. Administered Medications: 17:51 Drug: TNK FOR STROKE - Tenecteplase IV 0.25 mg/kg IV at per protocol once; MAX ld1 DOSE 25 mg, IVP over 5 seconds {Co-Signature: 1 (Bren Recio RN).} Route: IV; Rate: per protocol; Site: left antecubital; Point of Care Testing: Blood Glucose: 17:08 Blood Glucose: 147 mg/dL; ld1 Ranges: Critical Glucose Levels:Adult <50 mg/dl or >400 mg/dl <40 mg/dl or >180 mg/dl Disposition Summary: 09/18/23 18:24 Hospitalization Ordered Notes: Hospitalization Status: Inpatient Admission rn Provider: Jonatan To rn Location: Intensive Care Unit rn Condition: Stable rn Problem: new rn Symptoms: have improved rn Bed/Room Type: Standard rn Room Assignment: 2-(09/18/23 18:40) bd Diagnosis - Cerebral infarction, unspecified rn - Aphasia following cerebral infarction rn - Weakness rn Forms: - Medication Reconciliation Form rn - SBAR form rn - Leadership Thank You Letter barn boss time excluding procedures: 18:23 Critical care time: Bedside Care: 20 minutes, Consultation: 10 minutes, Family rn Intervention: 5 minutes. Total time: 35 minutes NIH Stroke Scale - NIH Stroke Score Date: 09/18/2023 Time: 17:05 Total Score = 10 10. Dysarthria (speech clarity - read or repeat words) - 1(Mild to Moderate) 11. Extinction and Inattention (visual/tactile/auditory/spatial/personal) - 0(No abnormality) 1a. Level of Consciousness (LOC) - 0(Alert) 1b. Level of Consciousness (LOC) (Month \T\ Age) - 0(Both) 1c. LOC Commands (Open \T\ Closes Eyes/Machine Stone Polisher) - 0(Both) 2. Best Gaze (Lateral Gaze Paresis) - 0(Normal) 3. Visual Field Loss - 0(No visual loss) 4. Facial Palsy - 1(Minor Paralysis) 5a. Left Arm: Motor (10-second hold) - 3(No effort against gravity) 5b. Right Arm: Motor (10-second hold) - 0(No drift) 6a. Left Leg: Motor (5-second hold - always test supine) - 3(No effort against gravity) 6b. Right Leg: Motor (5-second hold - always test supine) - 0(No drift) 7. Limb Ataxia (finger/nose \T\ heel/fitzpatrick - test with eyes open) - 0(Absent) 8. Sensory Loss (pinprick arms/legs/face) - 1(Mild to moderate loss) 9. Best Language: Aphasia (description/naming/reading) - 1(Mild to moderate aphasia) Initials: ld1 NIH Stroke Scale - NIH Stroke Score Date: 09/18/2023 Time: 17:06 Total Score = 10 10. Dysarthria (speech clarity - read or repeat words) - 1(Mild to Moderate) 11. Extinction and Inattention (visual/tactile/auditory/spatial/personal) - 0(No abnormality) 1a. Level of Consciousness (LOC) - 0(Alert) 1b. Level of Consciousness (LOC) (Month \T\ Age) - 0(Both) 1c. LOC Commands (Open \T\ Closes Eyes/Machine Stone Polisher) - 0(Both) 2. Best Gaze (Lateral Gaze Paresis) - 0(Normal) 3. Visual Field Loss - 0(No visual loss) 4. Facial Palsy - 1(Minor Paralysis) 5a. Left Arm: Motor (10-second hold) - 3(No effort against gravity) 5b. Right Arm: Motor (10-second hold) - 0(No drift) 6a. Left Leg: Motor (5-second hold - always test supine) - 3(No effort against gravity) 6b. Right Leg: Motor (5-second hold - always test supine) - 0(No drift) 7. Limb Ataxia (finger/nose \T\ heel/fitzpatrick - test with eyes open) - 0(Absent) 8. Sensory Loss (pinprick arms/legs/face) - 1(Mild to moderate loss) 9. Best Language: Aphasia (description/naming/reading) - 1(Mild to moderate aphasia) Initials: rn NIH Stroke Scale - NIH Stroke Score Date: 09/18/2023 Time: 19:30 Total Score = 0 10. Dysarthria (speech clarity - read or repeat words) - 0(Normal) 11. Extinction and Inattention (visual/tactile/auditory/spatial/personal) - 0(No abnormality) 1a. Level of Consciousness (LOC) - 0(Alert) 1b. Level of Consciousness (LOC) (Month \T\ Age) - 0(Both) 1c. LOC Commands (Open \T\ Closes Eyes/Machine Stone Polisher) - 0(Both) 2. Best Gaze (Lateral Gaze Paresis) - 0(Normal) 3. Visual Field Loss - 0(No visual loss) 4. Facial Palsy - 0(Normal) 5a. Left Arm: Motor (10-second hold) - 0(No drift) 5b. Right Arm: Motor (10-second hold) - 0(No drift) 6a. Left Leg: Motor (5-second hold - always test supine) - 0(No drift) 6b. Right Leg: Motor (5-second hold - always test supine) - 0(No drift) 7. Limb Ataxia (finger/nose \T\ heel/fitzpatrick - test with eyes open) - 0(Absent) 8. Sensory Loss (pinprick arms/legs/face) - 0(Normal) 9. Best Language: Aphasia (description/naming/reading) - 0(No aphasia) Initials: rv NIH Stroke Scale - NIH Stroke Score Date: 09/18/2023 Time: 20:02 Total Score = 0 10. Dysarthria (speech clarity - read or repeat words) - 0(Normal) 11. Extinction and Inattention (visual/tactile/auditory/spatial/personal) - 0(No abnormality) 1a. Level of Consciousness (LOC) - 0(Alert) 1b. Level of Consciousness (LOC) (Month \T\ Age) - 0(Both) 1c. LOC Commands (Open \T\ Closes Eyes/Machine Stone Polisher) - 0(Both) 2. Best Gaze (Lateral Gaze Paresis) - 0(Normal) 3. Visual Field Loss - 0(No visual loss) 4. Facial Palsy - 0(Normal) 5a. Left Arm: Motor (10-second hold) - 0(No drift) 5b. Right Arm: Motor (10-second hold) - 0(No drift) 6a. Left Leg: Motor (5-second hold - always test supine) - 0(No drift) 6b. Right Leg: Motor (5-second hold - always test supine) - 0(No drift) 7. Limb Ataxia (finger/nose \T\ heel/fitzpatrick - test with eyes open) - 0(Absent) 8. Sensory Loss (pinprick arms/legs/face) - 0(Normal) 9. Best Language: Aphasia (description/naming/reading) - 0(No aphasia) Initials: rv Signatures: Dispatcher [employer] EDMS Linda Mccall Roman, MD MD rn RamirezLauryn RN RN ld1 Bren Recio RN me1 Corrections: (The following items were deleted from the chart) 17:06 17:06 BASIC METABOLIC PANEL+C.LAB.BRZ ordered. EDMS EDMS 17:06 17:06 CBC+H.LAB.BRZ ordered. EDMS EDMS 17:06 17:06 Troponin High Sensitivity+C.LAB.BRZ ordered. EDMS EDMS 17:06 17:06 PROTIME (+INR)+COAG.LAB.BRZ ordered. EDMS EDMS 17:06 17:06 PTT, ACTIVATED+COAG.LAB.BRZ ordered. EDMS EDMS 17:06 17:06 Head Angio+CT.RAD.BRZ ordered. EDMS EDMS 17:06 17:06 Neck Angio+CT.RAD.BRZ ordered. EDMS EDMS 17:06 17:06 CT-STROKE BRAIN W/O CONTRAST+CT.RAD.BRZ ordered. EDMS EDMS 17:06 17:06 Chest Single View+RAD.RAD.BRZ ordered. EDMS EDMS 18:40 18:24 rn bd
--- NOTE | 2023-09-18 18:55 | RAD REPORT ---
EXAM DESCRIPTION: CT - Head angio - 09/18/2023 6:43 pm CLINICAL HISTORY: STROKE ALERT Headache, drowsiness, CVA symptomology COMPARISON: Ct Stroke Brain Wo Cont dated 09/18/2023; SINUS W O CONTRAST dated 05/13/2015 TECHNIQUE: CT angiography of the head was performed with MIPs. All CT scans are performed using dose optimization technique as appropriate and may include automated exposure control or mA/KV adjustment according to patient size. FINDINGS: No evidence of large vessel occlusion. No evidence of aneurysm is detected. No flow-limiti ng stenosis or vascular malformation identified. Antegrade flow is seen in the vertebral arteries. The vertebral arteries are codominant. The visualized dural venous sinuses are patent. IMPRESSION: No significant flow abnormality is detected.
--- NOTE | 2023-09-18 18:57 | RAD REPORT ---
EXAM DESCRIPTION: CT - Neck Angio - 09/18/2023 6:43 pm CLINICAL HISTORY: stroke alert Headache, drowsiness, CVA symptomology COMPARISON: No comparisons TECHNIQUE: CT angiography of the neck vessels was performed with MIPs. All CT scans are performed using dose optimization technique as appropriate and may include automated exposure control or mA/KV adjustment according to patient size. FINDINGS: A left aortic arch is identified with normal three vessel configuration of the great vesse ls. No significant flow abnormality is seen of the common carotid bilaterally. No significant stenosis is identified involving the cervical segments of both internal carotid arteri es. Normal flow is seen within both vertebral arteries. Upper lung beckett appear emphysematous with a small nonspecific 4 mm nodule seen in the right upper l obe, incompletely evaluated. IMPRESSION: No significant flow abnormality of the neck vessels is identified. NASCET criteria used. Mild 0-49% stenosis Moderate 50-69% stenosis Severe 70-99% stenosis
[2023-09-18 20:40] VITALS: O2SAT 100
[2023-09-18 21:44] VITALS: BMI 28.3
[2023-09-19] MEDS: NA CHLORIDE 0.9% 1,000 ML IV SCH (03:05)
[2023-09-19] MEDS: PANTOPRAZOLE 40MG TABLET PO SCH (05:59)
[2023-09-19] MEDS: PNEUMOCOCCAL VACCINE 0.5 ML IMVAC ONE (08:00)
--- NOTE | 2023-09-19 08:29 | RAD REPORT ---
EXAM DESCRIPTION: US - CP - 09/19/2023 3:53 am CLINICAL HISTORY: CVA COMPARISON: Neck Angio dated 09/18/2023 TECHNIQUE: Real-time sonographic grayscale, color duplex, and spectral wave Doppler evaluation of zhanna th carotid systems was performed. FINDINGS: Normal high resistance waveforms are noted in both external carotid arteries. The common c arotid arteries and internal carotid arteries show normal low resistance waveforms. Mild mixed echogenicity plaque formation is seen at the carotid bulbs bilaterally. Peak systolic [place] less than 125 cm/ sec bilaterally. ICA/CCA peak systolic ratios less than 2.0 bilaterally. Antegrade flow seen in both vertebral arteries. IMPRESSION: Mild atherosclerotic changes noted at the carotid bulbs bilaterally. Less than 50% stenosis of the ICAs bilaterally. Vertebral arteries are patent. Evaluation of carotid artery stenosis, if any, is reported based on consensus recommendations of the Society of Radiologists in Ultrasound (Colt et al., Radiology, 2003)
[2023-09-19] MEDS: ASPIRIN EC 81 MG TAB PO SCH ×2 (08:39→21:35)
[2023-09-19] MEDS: ENOXAPARIN 40 MG/0.4 ML SQ SCH ×2 (08:40→21:34)
[2023-09-19] MEDS: LOSARTAN POTASSIUM 50 MG TABLET PO SCH (09:00)
[2023-09-19] MEDS ORDERED: LOSARTAN POTASSIUM 50 MG TABLET PO SCH (09:00)
[2023-09-19] MEDS: GABAPENTIN 300 MG CAP PO SCH (09:03)
--- NOTE | 2023-09-19 13:08 | EKG ---
Test Date: 2023-09-18 Test Time: 17:00:[address]: TORSTEN MEASUREMENT RESULTS: Intervals: Rate: 87 UT: 154 QRSD: 78 QT: 378 QTc: 454 Shell: P: 52 UT: 154 QRS: 26 T: 30 INTERPRETIVE STATEMENTS: Normal sinus rhythm Normal ECG Compared to ECG 06/16/2015 14:48:52 No significant changes Electronically Signed On 09-19-23 13:05:55 CDT by Aldo Quintanilla
--- NOTE | 2023-09-19 13:32 | ECHO ---
HEIGHT: 5 ft 1 in WEIGHT: 150 lb 0 oz DATE OF STUDY: 09/19/[address]: George Fulton JR, MD 2-DIMENSIONAL: YES M.MODE: YES DOPPLER: YES COLOR FLOW: YES TDS: PORTABLE: YES DEFINITY: BUBBLE STUDY: DIAGNOSIS: CARDIAC HISTORY: CATHERIZATION: NO SURGERY: NO PROSTHETIC VALVE: NO PACEMAKER: NO MEASUREMENTS (cm) DIASTOLIC (NORMALS) SYSTOLIC (NORMALS) IVSd 0.9 (0.6-1.2) LA Diam 2.8 (1.9-4.0) LVEF 84% LVIDd 3.3 (3.5-5.7) LVIDs 1.6 (2.0-3.5) %FS 52% LVPWd 0.9 (0.6-1.2) Ao Diam 2.9 (2.0-3.7) 2 DIMENSIONAL ASSESSMENT: RIGHT ATRIUM: NORMAL LEFT ATRIUM: NORMAL RIGHT VENTRICLE: NORMAL LEFT VENTRICLE: NORMAL TRICUSPID VALVE: NORMAL MITRAL VALVE: NORMAL PULMONIC VALVE: NORMAL AORTIC VALVE: NORMAL PERICARDIAL EFFUSION: NONE AORTIC ROOT: NORMAL LEFT VENTRICULAR WALL MOTION: NORMAL DOPPLER/COLOR FLOW: MILD MITRAL REGURGITATION COMMENTS: 1. NORMAL LEFT VENTRICULAR EJECTION FRACTION GREATER THAN 60 % WITH NORMAL WALL MOTION 2. NORMAL DIASTOLIC DYSFUNCTION 3. MILD MITRAL REGURGITATION TECHNOLOGIST: GISSELL REN
--- NOTE | 2023-09-19 19:10 | RAD REPORT ---
EXAM DESCRIPTION: MRI - Brain Wo Cont - 09/19/2023 7:00 pm CLINICAL HISTORY: CVA Headache, drowsiness, CVA symptomology COMPARISON: Head angio dated 09/18/2023 TECHNIQUE: Multi-sequence, multiplanar MR imaging of the brain was performed without contrast. FINDINGS: No intracranial hemorrhage, hydrocephalus or extra-axial fluid collections. No edema or sh ift of midline structures. No findings to suspect brain mass. DWI is negative for acute CVA. Midline structures are normally formed. Mastoid air cells and paranasal sinuses are clear. IMPRESSION: No acute or concerning intracranial abnormalities.
[2023-09-19] MEDS: ATORVASTATIN 40 MG TAB PO SCH (21:35)
--- NOTE | 2023-09-19 21:59 | CON ---
Reason For Consultation: Consultation called because of possible aphasic stroke. History Of Present Illness: Ms. Lau is a 67-year-old right-handed patient with GE reflux , hypertension, neuropathic pain, who developed sudden onset of difficulty with expression and left f gaurang, arm, and leg weakness. The patient came to [facility] at 16:58 and symptom onset was w ithin an hour to half an hour of the arrival to emergency room. The patient's initial NIH evaluation score of 10 due to her deficits. Head CT scan was done. The study was negative for any acute ische luiza hemorrhagic findings. The patient subsequently received TNKs after having met criteria and contr aindications ruled out. The TNKs were given at 17:51. She received 25 mg IV push over 5 seconds. T he patient said that within perhaps the hour to hour and half, all of her symptoms have resolved and documented NIH Stroke Scale at 5:06 was 10 and at 7:30 was 0 and at 8:02 was also 0. She was put in ICU. The platelet medications were held. She had permissive hypertension, given hydration, and the following day which is today, she has the MRI of the brain pending. Her carotid artery ultrasound sh owed mild atherosclerotic changes in the carotid bulbs bilaterally less than 50%. The vertebral maxine dana are patent. An echocardiogram showed ejection fraction of 84% and it was a normal study. At the time of my evaluation in ICU, the patient had no neurologic deficits and returned back to her baseline functioning. Laboratory studies included a normal complete blood count with differential, n ormal coagulation panel. Sodium was slightly low 132, potassium 3.9, chloride 98, anion gap 8.9 with carbon dioxide 29, BUN 7, creatinine 1.04, glucose 95, A1c 6.2. Troponin high 5.5. Triglycerides 7 4, cholesterol 166, LDL 38, HDL 113, and cholesterol-HDL ratio 1.47. An electrocardiogram showed nor mal sinus rhythm, is a normal study, and CT angiogram head and neck showed no significant stenosis in those arteries. Past Medical History: As noted. Allergies: CIPROFLOXACIN, CODEINE, PROPOXYPHENE, AND SULFA. Medications: Currently, actually held within 24 hours after TNKs, she gets aspirin 162 mg daily, Lip itor 40 mg at bedtime, Lovenox 40 mg subcutaneously daily, gabapentin 300 mg daily, Cozaar 50 mg kate y, Protonix 40 mg daily, and receiving IV fluids. Family History: Noncontributory. Review of Systems: No fevers, chills, nausea, vomiting, myalgias, arthralgias, headache, weight change, rash, psychiatri c issues, gastrointestinal issues, otherwise negative. Physical Examination: Vital Signs: Blood pressure 118/50, pulse 72, respiratory rate 14, temperature 97.4, oxygen saturati on 98% to 100% on room air. General: Ms. Lau is resting comfortably in ICU bed. She is normocephalic, atraumatic. Sclerae an icteric. Oropharynx is pink and moist. Neck: Supple. Chest: Clear. Heart: Regular. Extremities: Show no clubbing, cyanosis, or edema. Neurological: No focal neurological deficits on cranial nerves, motor, and sensory evaluation. Refl exes, she ambulated well with physical therapy. She was able to ambulate 250 feet with supervision. It is noted may use a walker for energy conservation. She did have an evaluation by Speech and she was doing well, did not require ongoing speech therapy. Assessment: Ms. Lau is a 67-year-old patient, who potentially had a right hemispheric stroke produ cing aphasia with left-sided weakness from which she has resolved after receiving TNKs. She has risk factors for stroke including hypertension and some abnormal lipids, although the lipid panel suggest s that she is actually very protected against stroke. In any event, she has recovered completely. Plan: Should continue with the aspirin and the Lipitor. Continue gabapentin for pain and the Cozaar for hypertension management. She may be discharged home and if need be, outpatient physical therapy can be done. She has follow up in Dr. Dawson's clinic within the month. JENNA/SHAMA Voice ID: [id number] Report ID: [id number]
--- NOTE | 2023-09-19 22:59 | PN ---
Date of Progress Note: 09/19/2023 Subjective: The patient was seen this morning for followup. She was lying in bed in ICU. No new co mplaints or problems reported overnight. She just did not sleep much last night as she reports. No headache. No problem with her eye sites. No nausea, vomiting. She feels a lot better. Still feels like left side is very minimally weaker than the right side, but overall feels better. No chest shannon n. No shortness of breath. Objective: Vital Signs: Reviewed. HEENT: Unremarkable. Lungs: Clear to auscultation. Heart: Sounds normal. Abdomen: Soft. Bowel sounds normal. No guarding, rigidity, tenderness, distention. Extremities: No leg edema. DEALER ACCOUNTS INVESTIGATOR: Power in left upper extremity is 4+/5 and left lower extremity power is almost normal compared to the right side. No facial asymmetry. Speech is normal. Laboratory Data: Triglyceride 74, total cholesterol 166, LDL 38, and HDL 113. Impression: 1.Stroke. 2.Type 1 diabetes mellitus. 3.Hypertension. 4.Hyperlipidemia. Plan: We will go ahead and continue to follow up with neurologist, Dr. Dawson. The patient will h ave echocardiogram and MRI of the brain done today per stroke protocol. We will have Physical Therap y, Occupational Therapy, and Speech Therapy work with her. Her hemoglobin A1c was 6.2, and she is cu rrently in the hospital managing her own diabetes with her insulin pump. Starting later today, we wi ll start aspirin and Lovenox per order and I will see her tomorrow for followup. If possible, the patient would like to go home and do outpatient physical therapy instead of going to inpatient rehab. ALFRED/MODL Voice ID: [id number] Report ID: [id number]
[2023-09-20 04:37] LABS: Absolute Eosinophils 0.2 K/uL (0-0.5); Absolute Lymphocytes (CBC) 1.2 K/uL (0.7-4.9); Absolute Monocytes 0.6 K/uL (0.1-1.3); Absolute Neutrophil 2.7 K/uL (1.8-8.0); Basophils % 0.9 % (0-1.3); Eosinophils % 3.5 % (0-4.4); Hematocrit 34.9 % (36.0-45.0); Hemoglobin 11.9 g/dL (12.0-15.0); Lymphocytes % 25.6 % (15.3-44.8); MCH 29.5 pg (27.0-35.0); MCV 86.9 fL (80-100); MPV 8.4 fL (7.6-11.3); Monocytes % 13.1 % (3.3-12.3); Neutrophils % 56.9 % (41.7-73.7); Nucleated Red Blood Cells % 0.3 % (0-0); Platelets 321 thou/uL (152-406); RBC Red Blood Cell Count 4.02 M/uL (3.86-4.86); Red Cell Distribution Width 14.6 % (12.1-15.2)
[2023-09-20 04:38] LABS: Albumin 2.8 g/dL (3.4-5.0); Albumin/Globulin Ratio 0.8 (1.1-1.8); Anion Gap 7.8 mEq/L (5.0-15.0); Bilirubin Total 0.2 mg/dL (0.2-1.0); Globulin 3.4 g/dL (2.3-3.5); Potassium 3.8 mEq/L (3.5-5.1); Protein, Total 6.2 g/dL (6.4-8.2)
[2023-09-20 09:56] VITALS: BP 159/73; TEMP 98
--- NOTE | 2023-09-20 22:12 | DS ---
Date of Discharge: 09/20/2023 Disposition: Discharged to go home. Physical Examination: HEENT: Unremarkable. Lungs: Clear to auscultation. No wheezing. No rales. Heart: Sounds normal. Abdomen: Soft. Bowel sounds normal. No guarding, rigidity, tenderness, distention. Extremities: No leg edema. [employer]: The patient's power in left upper and left lower extremity is minimally weaker than the right s marina and I would say the patient's power in left upper and left lower extremity is 4+/5 and right side is 5/5. There is no facial asymmetry. Speech is normal. Discharge Medications And Instructions: Continue all prior home medication except following changes: 1.Aspirin, take 81 mg tablet . 2.Atorvastatin 40 mg daily at bedtime. 3.Follow up at my office next week. 4.Follow up with Dr. Dawson in 1 month. Laboratory Data: Upon admission on 09/18/2023, white count 5.4, hemoglobin 13.4, platelets 309, and today white count 4.8, hemoglobin 11.9, platelets 321. For chemistry upon admission, sodium 132, pot assium 3.9, chloride 98, bicarb 29, BUN 7, creatinine 1.04, glucose 95, hemoglobin A1c 6.2. Lipid pr ofile from yesterday, triglycerides 74, HDL 113, LDL 38, total cholesterol 166. Today, sodium 135, p otassium 3.8, chloride 103, bicarb 28, BUN 5, creatinine 0.61, glucose 130. Liver function tests unr emarkable. MRI of brain done yesterday was negative for any acute changes. Carotid Doppler showed mild atherosc lerotic changes noted in bilateral carotid bulb resulting in less than 50% stenosis of bilateral inte rnal carotid arteries. Echocardiogram shows ejection fraction 84%, normal diastolic dysfunction, mil d mitral regurgitation. CAT scan of the head done upon arrival to the emergency room was negative fo r any acute intracranial changes. Chest x-ray did not show any acute intrathoracic changes. EKG haily wed normal sinus rhythm, normal EKG, and CT angio of head and neck was negative for any significant s tenotic lesion. Hospital Course: This is a 67-year-old very pleasant female patient, who was admitted to the [facility] with expressive aphasia and weakness of left side of her body. The patient was sitting at the ayala ng table and all of a sudden she says that she fell over in her plate and her was with her wh o called ambulance. The patient had aphasia and was not able to talk at all and her entire left side was weak. She was not able to move her left arm or left leg at all. She was immediately brought in to emergency room and code stroke was called and the patient received thrombolytic therapy and has re covered extremely well to the extent that her speech is back to normal and her weakness of the left u pper and left lower extremity has practically resolved and she feels like she has no residual weaknes s at all. At home, she takes aspirin 81 mg daily and as of yesterday evening, we started her on aspi rin 81 mg to take 2 tablets daily and Lovenox was given for DVT prophylaxis. Dr. Dawson was consul funmi. Physical Therapy and Occupational Therapy were called and the patient is ambulating very well. She prefers to go home instead of going to inpatient rehab. Considering how well she has recovered, she really does not need to go to inpatient rehab, but she will definitely go for outpatient physica l therapy. I will see her next week at the office for followup and she will chicken picker the physical the rapy order from office next week. She is tolerating diet very well without any trouble swallowing. The patient was kept in ICU and we have not seen any evidence of atrial fibrillation during this hosp italization. Today, she was discharged to go home in stable condition with above-mentioned medicatio ns and instructions. Final Diagnoses: 1.Stroke, left-sided hemiplegia, resolved completely. 2.Bilateral carotid artery stenosis. 3.Mitral regurgitation. 4.Hypertension. 5.Hyperlipidemia. 6.Type 1 diabetes mellitus. 7.Anemia, unspecified. Total time spent 40 minutes. ALFRED/MODL Voice ID: [id number] Report ID: [id number]
== END 2023-09-20 09:10 | disposition home or self-care (01) | DRG 62 ==
LOC: ER 16:58 → ERHOLD 18:29 → 3RD-ICU 19:57
PROVIDERS: ADMIT Internal Medicine; ATTEND Internal Medicine
DX: I63.9 Cerebral infarction, unspecified (principal); G81.94 Hemiplegia, unspecified affecting left nondominant side; D64.9 Anemia, unspecified; I10 Essential (primary) hypertension; E10.9 Type 1 diabetes mellitus without complications; K21.9 Gastro-esophageal reflux disease without esophagitis; I34.0 Nonrheumatic mitral (valve) insufficiency; G83.10 Monoplegia of lower limb affecting unspecified side; I65.23 Occlusion and stenosis of bilateral carotid arteries; M19.90 Unspecified osteoarthritis, unspecified site; R53.1 Weakness; R47.01 Aphasia; R29.710 NIHSS score 10; Z88.2 Allergy status to sulfonamides; Z79.4 Long term (current) use of insulin; Z88.1 Allergy status to other antibiotic agents; Z88.5 Allergy status to narcotic agent; Z79.82 Long term (current) use of aspirin; Z96.41 Presence of insulin pump (external) (internal); Z79.899 Other long term (current) drug therapy
CPT/HCPCS: 36415; 70450; 70496; 70498; 70551; 71045; 80048; 80053; 80061; 82947; 83036; 84484; 85025; 85610; 85730; 92523; 92977; 93005; 93306; 93880; 96374; 97112; 97116; 97161; 99291; J1650; J3101; J7030; Q9967

== ENCOUNTER 2023-10-24 17:16 | Emergency (ER) | payer OTHER ==
--- OUTSIDE RECORDS SUMMARY | 2023-10-24 17:20 | XMS REPORT | Clinical Summary ---
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 Active gabapentin (NEURONTIN) 300 mg capsule Take 1 capsule (300 mg) by mouth every morning. Active insulin lispro (HumaLOG) 100 units/mL injection for insulin pump by continuous subcutaneous infusion route continuous. For use in insulin pump. Active losartan (COZAAR) 50 mg tablet Take 1 tablet (50 mg) by mouth daily. Active omeprazole (PriLOSEC) 40 MG capsule Take 1 capsule (40 mg) by mouth every morning before breakfast. Active UNABLE TO FIND daily. Med Name: align probiotic Active aspirin 81 mg EC tablet Take 1 tablet (81 mg) by mouth daily. Active biotin 2,500 mcg cap Take 1 capsule by mouth daily. Active diphenhydrAMINE (BENADRYL) 25 mg capsule Take 1 capsule (25 mg) by mouth. Active cetirizine (ZyrTEC) 10 mg tablet Take 1 tablet (10 mg) by mouth daily. Active co-enzyme Q-10 50 mg capsule Take 4 capsules (200 mg) by mouth daily. Active traMADol (ULTRAM) 50 mg tablet Take 1 tablet (50 mg) by mouth as needed. Active lutein-zeaxanthin 20 mg- 1,000 mcg cap Take 1 capsule by mouth daily. Active CALCIUM 26-VIT D3-MAGNESIUM 15 ORAL Take 1 capsule by mouth daily. Active Active Problems Problem Noted Date Diagnosed Date Type 1 diabetes mellitus 07/23/2023 Lesion of bone 07/23/2023 Encounters Date Type Department Care Team Description 08/08/2023 Telephone [facility] [address] [place] [address], 9th [place] [address] Tom Contreras PA 07/25/2023 1:10 PM HOG SAWYER Ancillary Procedure [facility] [address] [facility] [address] [place] [address] Tom Contreras PA Lesion of bone 07/25/2023 Travel 07/23/2023 1:25 PM HOG SAWYER - 07/23/2023 11:59 PM [facility]OG SA[facility]ER Hospital Encounter [facility] [address] [place] [address], 3rd [place] [address] Tom Contreras PA Lesion of bone Discharge Disposition: Home 07/23/2023 12:45 PM [facility]OG SAWYER Ancillary [facility] [address] [place] [address], 7th [place] [address] Tom Contreras PA Lesion of bone 07/23/2023 12:30 PM [facility]OG SAW[facility]ER Ancillary [facility] [address] [place] [address], 7th [place] [address] Tom Contreras PA Lesion of bone 07/23/2023 10:31 AM HOG SAWYER - 07/23/2023 1:24 PM [facility]OG [facility]ER Hospital Encounter [facility] [address] [place] [address], [place] [address] Tom Contreras PA Lesion of bone Discharge Disposition: Home 07/23/2023 10:00 AM [facility]ER Office Visit [facility] [address] [place] [address] Main Bldg, 9th [place] [address] Valdemar Ro MD Lesion of bone (Primary Dx) 07/23/2023 Travel 07/18/2023 8:30 PM [facility]OG SAWYER Ancillary Procedure [facility] [address] [place] [address] Valdemar Ro MD Cancer 07/18/2023 8:25 PM [facility]OG SAW[facility]ER Ancillary Procedure [facility] [address] [place] [address] Valdemar Ro MD Cancer 07/18/2023 8:20 PM [facility]OG SA[facility]ER Ancillary Procedure [facility] [address] [place] [address] Valdemar Ro MD Cancer 07/18/2023 8:15 PM [facility]OG SAW[facility]ER Ancillary Procedure [facility] [address] [place] [address] Valdemar Ro MD Cancer 07/18/2023 8:10 PM [facility]OG SAW[facility]ER Ancillary Procedure [facility] [address] [place] [address] Valdemar Ro MD Cancer 07/18/2023 8:05 PM [facility]OG SAW[facility]ER Ancillary Procedure [facility] [address] [place] [address] Valdemar Ro MD Cancer 07/18/2023 8:00 PM [facility]OG SAW[facility]ER Ancillary Procedure [facility] [address] [place] [address] Valdemar Ro MD Cancer 07/18/2023 1:30 PM HOG SAWYER NPR MDA PATIENT ACCESS Valdemar Ro MD after 10/24/2022 Surgical History Surgery Date Site/Laterality Comments APPENDECTOMY [...] History Relation Name Comments -Other cancer Mother Aleyda Walker systemic scler osis, Scleroderma -Other cancer [...] Sex Assigned at Female 07/02/2023 5:09 PM HOG SAWYER Gender Identity Female 07/02/2023 5:09 PM HOG SAWYER Sexual Orientation Straight 07/02/2023 5: 09 PM HOG SAWYER Job Start Date Occupation Industry Not on file Not on file Not on file Obstetrics History Last Filed Vital Signs Vital Sign Reading Time Taken Comments Blood Pressure 150/61 07/23/2023 9:25 AM HOG SAWYER Pulse 80 07/23/2023 9:25 AM [facility]OG SA[facility]ER Temperature 36.7 C (98.1 F) 07/23/2023 9:25 AM CS T Respiratory Rate 18 07/23/2023 9:25 AM HOG SAWYER Oxygen Saturation 99% 07/23/2023 9:25 AM [facility]OG SA[facility]ER Inhaled Oxygen Concentration - - Weight 68.5 kg (151 lb 0.2 oz) 07/23/2023 9:25 A M HOG SAWYER Height 151.5 cm (4' 11.65") 07/23/2023 9:[address] Body Mass Index 29.84 07/23/2023 9:25 AM HOG SAWYER Plan of Treatment Health Maintenance Due Date Last Done Comments COVID-19 Vaccine (2022- 4 season) 2023 03/25/2021, 07/24/2020, 06/26/2020 Influenza Vaccine 01/20/2024 01/10/2020 Procedures Procedure Name Priority Date/Time Associated Diagnosis Comments POC GLUCOSE SCREEN Routine 07/25/2023 2: [address] CHEST ABDOMEN PELVIS W CONTRAST Routine 07/25/2023 2:28 PM HOG SAWYER Lesion of bone POC GLUCOSE SCREEN Routine 07/25/2023 1: 15 PM [facility]OG SAW[facility]ER XR SCOLIOSIS SERIES AP/LAT Routine 07/23/2023 2:21 PM [facility]OG SAW[facility]ER Lesion of bone XR RIBS BILATERAL 3 VW Routine 12:53 PM HOG SAWYER Lesion of bone XR HIP 2 VW BILATERAL W PELVIS Routine 07/23/2023 12:47 PM HOG SAWYER Lesion of bone PROTEIN ELECTROPHORESIS Routine 07/23/19 24 11:02 AM HOG SAWYER Lesion of bone .CBC Routine 07/23/2023 11:02 AM [facility]OG SAW[facility]ER Lesion of bone C REACTIVE PROTEIN Routine 07/23/2023 11 :02 AM [facility]OG SAWYER Lesion of bone SEDIMENTATION RATE NON-AUTOMATED Routine 07/23/2023 11:02 AM [facility]OG SAW[facility]ER Lesion of bone FREE THYROXINE Routine 07/23/2023 11:02 AM HOG SA[facility]ER Lesion of bone THYROID STIMULATING HORMONE Routine 07/23/2023 11:02 AM [facility]OG SA[facility]ER Lesion of bone PROTEIN ELECTROPHORESIS Routine 07/23/19 24 11:02 AM [facility]OG SA[facility]ER Lesion of bone HEMOGLOBIN A1C Routine 07/23/2023 11:02 AM [facility]OG SA[facility]ER Lesion of bone TYPE AND SCREEN Routine 07/23/2023 11:02 AM HOG SAW[facility]ER Lesion of bone TOTAL PROTEIN Routine 07/23/2023 11:02 AM HOG SAWYER Lesion of bone PROTHROMBIN TIME Routine 07/23/2023 11:0 2 AM [facility]OG SAWYER Lesion of bone PHOSPHORUS LEVEL Routine 07/23/2023 11:0 2 AM [facility]OG SAW[facility]ER Lesion of bone MAGNESIUM LEVEL Routine 07/23/2023 11:02 AM HOG SAWYER Lesion of bone LACTATE DEHYDROGENASE Routine 07/23/2023 11:02 AM HOG SAWYER Lesion of bone GLUCOSE, RANDOM Routine 07/23/2023 11:02 AM HOG SAWYER Lesion of bone ELECTROLYTE PANEL Routine 07/23/2023 11: 02 AM [facility]OG SAW[facility]ER Lesion of bone CREATININE Routine 07/23/2023 11:02 AM HOG SAWYER Lesion of bone COMPLETE BLOOD COUNT W/ DIFFERENTIAL Routine 07/23/2023 11:02 AM HOG SAWYER Lesion of bone BILIRUBIN TOTAL Routine 07/23/2023 11:02 AM HOG SAWYER Lesion of bone CALCIUM LEVEL Routine 07/23/2023 11:02 AM HOG SAWYER Lesion of bone BLOOD UREA NITROGEN Routine 07/23/2023 1 1:02 AM HOG SAWYER Lesion of bone ASPARTATE AMINOTRANSFERASE Routine 07/23/2023 11:02 AM HOG SAWYER Lesion of bone APTT Routine 07/23/2023 11:02 AM [facility]OG SAWYER Lesion of bone ALANINE AMINOTRANSFERASE Routine 024 11:02 AM [facility]OG SAW[facility]ER Lesion of bone ALBUMIN LEVEL Routine 07/23/2023 11:02 AM HOG SAWYER Lesion of bone CONFIRM ABORH TYPE Routine 07/23/2023 10 :59 AM [facility]OG SAWYER Lesion of bone OSI NUCLEAR DIAGNOSTIC EXAM Routine 07/04/2023 1:07 PM HOG SAWYER Cancer OSI BARIUM SWALLOW Routine 07/02/2023 1: 07 PM HOG SAWYER Cancer OSI CHEST Routine 03/29/2023 1:08 PM HOG SAWYER Cancer OSI BONE SCAN Routine 03/29/2023 1:07 PM HOG SAWYER Cancer after 10/24/2022 Results * POC Glucose Screen - Fingerstick (07/25/2023 2:32 PM HOG SAWYER) Only the most recent of2 resultswithin the time period is included. Pathologist [facility] Glucose Screen 81 70 - 99 mg/dL 07/25/2023 2:34 PM HOG SAWYER YUMA POC Sample Type Capillary 07/25/2023 2:34 PM [facility] Blood 07/25/2023 2:32 PM HOG SAWYER 07/25/2023 2:34 PM HOG SAWYER Narrative YUMA - 07/25/2023 2:34 PM HOG SAWYER Capillary blood samples, e.g. obtained by fingerstick, [...] methodology. Tom OSORIO POCT ORDERABLES - DEVICE [facility] YUMA [address] [facility], [facility] [address] [place] [address] * CT Chest Abdomen Pelvis with Contrast (07/25/2023 2:28 PM HOG SAWYER) Anatomical Region Laterality Modality Abdomen, Pelvis, Chest Computed Tomography 07/27/2023 11:3 4 AM HOG SAWYER Impressions 07/27/2023 12:05 PM HOG SAWYER 1. No suspicious focal masses in the [...] ITEMS/RECOMMENDATIONS*: See impression. Narrative 07/27/2023 12:05 PM HOG SAWYER FULL RESULT: Examination: CT CHEST ABDOMEN PELVIS [...] areidentified. ACTIONABLE ITEMS/RECOMMENDATIONS*: See impression. Tom OSORIO [facility] [place] ORDERABLES * XR Scoliosis Series AP/LAT (07/23/2023 2:21 PM HOG SAWYER) Anatomical Region Laterality Modality Spine Digital Radiogra phy 07/23/2023 2:33 PM HOG SAWYER Impressions 07/23/2023 2:38 PM HOG SAWYER No evidence of scoliosis. Healing fractures left superior and inferior pubic rami. ACTIONABLE ITEMS/RECOMMENDATIONS*: None. Narrative 07/23/2023 2:38 PM HOG SAWYER FULL RESULT: Examination: XR SCOLIOSIS SERIES AP/LAT, [...] Ribs 3 Views Bilateral (07/23/2023 12:53 PM HOG SAWYER) Anatomical Region Laterality Modality Bone Digital Radiogra phy 07/23/2023 1:37 PM HOG SAWYER Impressions 07/23/2023 1:45 PM HOG SAWYER Examination of the bilateral ribs shows possible subtle abnormalities of the anterior left 8th and 9th ribs. These may be healing fractures. If clinically indicated, these ribs could be further examined with computed tomography. ACTIONABLE ITEMS/RECOMMENDATIONS*: None. Narrative 07/23/2023 1:45 PM HOG SAWYER FULL RESULT: Examination: XR RIBS BILATERAL 3 VW, 07/23/2023 12:53 PM. Clinical History: 67-year-old woman with no history of cancer. Abnormal ribs on the radionuclide bone scan of 03/29/2023 Indication: eval for bone lesion Comparison: Radionuclide bone scan from [facility] dated 03/29/2023 Technique: XR RIBS BILATERAL [...] bone lesion Comparison: Radionuclide bone scan from [facility] dated105/29/2022 Technique: XR RIBS BILATERAL 3 [...] Views Bilateral w Pelvis (07/23/2023 12:47 PM HOG SAWYER) Anatomical Region Laterality Modality Hip, Extremity Digital Radiogra phy 07/23/2023 1:05 PM HOG SAWYER Impressions 07/23/2023 1:19 PM HOG SAWYER 1. No radiographic evidence of left lower rib abnormalities corresponding with the increased radiotracer uptake in an OSI radionuclide bone scan of 03/29/2023. 2. Healed fractures of left obturator ring. 3. Unremarkable hips. 4. No acute fracture or bone metastasis. ACTIONABLE ITEMS/RECOMMENDATIONS: None. Narrative 07/23/2023 1:19 PM HOG SAWYER FULL RESULT: Examination: XR Bilateral Ribs, 4 [...] * Serum Protein Electrophoresis (07/23/2023 11:02 AM [facility]) Albumin 4.3 3.6 - 5.4 gm/dL 07/23/2023 4:10 PM HOG SAWYER [facility] Alpha 1 Globulin 0.3 0.2 - 0.4 gm/dL 07/23/2023 4:10 PM HOG SAWYER [facility] Alpha 2 Globulin 1.0 0.5 - 1.0 gm/dL 07/23/2023 4:10 PM [facility] Beta Globulin 0.8 0.5 - 1.1 gm/dL 07/23/2023 4:10 PM [facility] Gamma Globulin 1.1 0.7 - 1.6 gm/dL 07/23/2023 4:10 PM [facility] SPE Path Interp The serum protein electrophoretic pattern does not show definite evidence of a M-protein peak. If a paraproteinemia is suspected clinically, serum free light chain studies, serum protein MINERVA studies, serum immunoglobulin quantitation and urine Bence-Arrington protein studies are recommended. 07/23/2023 4:10 PM [facility] Pathologist Signature . 07/23/2023 4:10 PM [facility] Total Protein 7.5 6.4 - 8.3 gm/dL 07/23/2023 4:10 PM [facility] Blood Peripheral blood specimen / Unknown Venipuncture / Unknown 07/23/2023 11:02 AM HOG SAWYER 07/23/2023 11:13 AM [facility]ER Tom OSORIO LAB BLOOD ORDERAB LES [facility] Unless otherwise noted, all lab tests performed by: Division of Pathology and Laboratory Medicine [address] [place] [id number] * Glucose, Random (07/23/2023 11:02 AM [facility]) Pathologist [facility] Glucose Random 96 70 - 199 mg/dL 07/23/2023 12:15 PM [facility] Blood Peripheral blood specimen / Unknown Venipuncture / Unknown 07/23/2023 11:02 AM [facility] 07/23/2023 11:14 AM [facility] Narrative [facility] - 07/23/2023 12:15 PM [facility] Effective 12/15/15, the glucose reference intervals have been updated based on [place] Diabetes [employer] guidelines (Standards of Medical Care in Diabetes 2016. Diabetes Care 2016; 39: S13-S22). Fasting blood glucose: Normal: 70-99 mg/dL Impaired fasting glucose (increased risk for diabetes or pre-diabetes): 100-125 mg/dL Diabetes mellitus: >/=126 mg/dL Random blood glucose: Normal: 70-199 mg/dL Note: Random glucose >100 mg/dL is associated with increased risk for diabetes Tom OSORIO LAB BLOOD ORDERAB LES [facility] Unless otherwise noted, all lab tests performed by: Division of Pathology and Laboratory Medicine [address] [place] [address] * (ABNORMAL) .CBC (07/23/2023 11:02 AM [facility]) [facility] White Blood Cell 5.7 4.1 - 10.5 K/uL 07/23/2023 11:20 AM [facility] Red Blood Cell 4.39 3.99 - 5.46 M/uL 07/23/2023 11:20 AM [facility] Hemoglobin 12.5 12.2 - 15.3 g/dL 07/23/2023 11:20 AM [facility] Hematocrit 36.3(L) 36.4 - 46.8 % 07/23/2023 11:20 AM [facility] Mean Cell Volume 83 82 - 99 fL 07/23/2023 11:20 AM [facility] Mean Cell Hemoglobin 28.5 26.6 - 33.2 pg 07/23/2023 11:20 AM [facility] Mean Cell Hemoglobin Concentration 34.4 31.1 - 35.2 g/dL 07/23/2023 11:20 AM [facility] RDW-SD 41.0 37.5 - 49.7 fL 07/23/2023 11:20 AM [facility] Red Cell Diameter Width 13.6 11.6 - 15.5 % 07/23/2023 11:20 AM [facility] Platelet 324 160 - 397 K/uL 07/23/2023 11:20 AM [facility] Mean Platelet Volume 9.7 9.1 - 12.6 fL 07/23/2023 11:20 AM [facility] INRBC 0.0 0.0 - 0.1 /100 WBC 07/23/2023 11:20 AM [facility] Comment: The INRBC (instrument NRBC) value reflects the enumeration of nucleated red blood cells contained in a 200uL sample of whole blood analyzed by the instrument. This value may differ from the NRBC value reported in a manual differential, which is based on a 100 cell differential. Neutrophil % 63.5 43.2 - 72.7 % 07/23/2023 11:20 AM [facility] Lymphocyte % 20.3 16.8 - 46.2 % 07/23/2023 11:20 AM [facility] Monocyte % 11.9 5.1 - 12.5 % 07/23/2023 11:20 AM [facility] Eosinophil % 3.5 0.4 - 6.3 % 07/23/2023 11:20 AM [facility] Basophil % 0.5 0.2 - 1.4 % 07/23/2023 11:20 AM [facility] IGRE % 0.3 0.1 - 1.5 % 07/23/2023 11:20 AM [facility] Comment:The IGRE% includes M etamyelocytes, Myelocytes and Promyelocytes. Neutrophil Abs 3.63 1.95 - 7.25 K/uL 07/23/2023 11:20 AM [facility] Lymphocyte Abs 1.16 1.01 - 3.24 K/uL 07/23/2023 11:20 AM [facility] Monocyte Abs 0.68 0.24 - 0.85 K/uL 07/23/2023 11:[address] [facility] Eosinophil Abs 0.20 0.02 - 0.50 K/uL 07/23/2023 11:20 AM HOG SAW[facility]ER [facility] Basophil Abs 0.03 0.02 - 0.09 K/uL 07/23/2023 11:20 AM [facility] IG Abs 0.02 0.01 - 0.12 K/uL 07/23/2023 11:20 AM HOG SAWYER [facility] Blood Peripheral blood specimen / Unknown Venipuncture / Unknown 07/23/2023 11:02 AM HOG SAW[facility]ER 07/23/2023 11:12 AM [facility] Tom OSORIO LAB BLOOD ORDERAB LES [facility] Unless otherwise noted, all lab tests performed by: Division of Pathology and Laboratory Medicine [address] [place] [phone] * (ABNORMAL) aPTT (07/23/2023 11:02 AM HOG SAWYER) Activated PTT 23.8(L) 24.1 - 35.5 second(s) 07/23/2023 12:26 PM HOG SAWYER [facility] Blood Peripheral blood specimen / Unknown Venipuncture / Unknown 07/23/2023 11:02 AM HOG SAWYER 07/23/2023 11:23 AM [facility]ER Tom OSORIO LAB BLOOD ORDERAB LES [facility] Unless otherwise noted, all lab tests performed by: Division of Pathology and Laboratory Medicine [address] [place] [id number] * Erythrocyte Sedimentation Rate (07/23/2023 11:02 AM HOG SAWYER) Sedimentation Rate 15 <=30 mm/hr 2023 12:47 PM HOG SAWYER [facility] Blood Peripheral blood specimen / Unknown Venipuncture / Unknown 07/23/2023 11:02 AM HOG SAWYER 07/23/2023 11:12 AM [facility]ER Tom OSORIO LAB BLOOD ORDERAB LES [facility] Unless otherwise noted, all lab tests performed by: Division of Pathology and Laboratory Medicine [address] [place] [id number] * Prothrombin Time with INR (07/23/2023 11:02 AM HOG SAWYER) Pathologist [facility] Prothrombin Time 12.3 11.9 - 14.5 second(s) 07/23/2023 12:26 PM HOG SAWYER [facility] International Normalization Ratio 0.91 0.87 - 1.12 07/23/2023 12:26 PM HOG SAWYER [facility] Blood Peripheral blood specimen / Unknown Venipuncture / Unknown 07/23/2023 11:02 AM HOG SAWYER 07/23/2023 11:23 AM [facility] SAW[facility]ER Tom OSORIO LAB BLOOD ORDERAB LES Performing Organization Address City/[facility] Co de Phone Number [facility] Unless otherwise noted, all lab tests performed by: Division of Pathology and Laboratory Medicine [address] [place] [phone] * Type and Screen (07/23/2023 11:02 AM HOG SAWYER) Pathologist [facility] ABORh A POS 07/23/2023 10:31 AM HOG SAWYER [facility] ABSC Negative 07/23/2023 10:31 AM HOG SAWYER [facility] Clot Expiration 07/26/2023 23:59 07/23/2023 10:31 AM HOG SAWYER [facility] Historical Record Check No History 07/23/2023 10:31 AM [facility] Blood Peripheral blood specimen / Unknown Venipuncture / Unknown 07/23/2023 11:02 AM HOG SAWYER 07/23/2023 11:13 AM HOG SAWYER Tom OSORIO BLOOD BANK TEST O RDERABLES [facility] - TRANSFUSION [facility] Transfusion Services [address] [place] [address] [phone] [place] [address] * C-Reactive Protein (07/23/2023 11:02 AM HOG SAWYER) [facility] CRP (C Reactive Protein) 0.76 mg/L 07/23/2023 12:20 PM HOG SAWYER [facility] Blood Peripheral blood specimen / Unknown Venipuncture / Unknown 07/23/2023 11:02 AM HOG SAWYER 07/23/2023 11:13 AM HOG SAWYER Narrative [facility] - 07/23/2023 12:20 PM HOG SAWYER Adult Reference ranges for HS CRP assay are as follows: Reference ranges when used to assess cardiac risk: <1.00 mg/L Low cardiovascular risk 1.00-3.00 mg/L Average cardiovascular risk >3.00 mg/L High cardiovascular risk Reference ranges when used to assess inflammatory responses: Less than or equal to 10.00 mg/L. Tom OSORIO LAB BLOOD ORDERAB LES [facility] Unless otherwise noted, all lab tests performed by: Division of Pathology and Laboratory Medicine [address] [place] [phone] * BUN (07/23/2023 11:02 AM HOG SAWYER) [facility] BUN 6 6 - 23 mg/dL 07/23/2023 12:15 PM HOG SAWYER [facility] Blood Peripheral blood specimen / Unknown Venipuncture / Unknown 07/23/2023 11:02 AM HOG SAWYER 07/23/2023 11:14 AM [facility]ER Tom OSORIO LAB BLOOD ORDERAB LES [facility] Unless otherwise noted, all lab tests performed by: Division of Pathology and Laboratory Medicine [address] [place] [id number] * ALT (07/23/2023 11:02 AM HOG SAWYER) [facility] ALT 26 <=33 U/L 07/23/2023 12:15 PM HOG SAWYER [facility] Blood Peripheral blood specimen / Unknown Venipuncture / Unknown 07/23/2023 11:02 AM HOG SAWYER 07/23/2023 11:14 AM [facility]ER Tom OSORIO LAB BLOOD ORDERAB LES Performing Organization Address City/[facility] Co de Phone Number [facility] Unless otherwise noted, all lab tests performed by: Division of Pathology and Laboratory Medicine [address] [place] [id number] * Aspartate Aminotransferase (07/23/2023 11:02 AM HOG SAWYER) Pathologist [facility] AST 29 <=32 U/L 07/23/2023 12:15 PM HOG SAWYER [facility] Blood Peripheral blood specimen / Unknown Venipuncture / Unknown 07/23/2023 11:02 AM HOG SAWYER 07/23/2023 11:14 AM [facility]ER Tom OSORIO LAB BLOOD ORDERAB LES Performing Organization Address [facility] Co de Phone Number [facility] Unless otherwise noted, all lab tests performed by: Division of Pathology and Laboratory Medicine [address] [place] [phone] * (ABNORMAL) TSH (07/23/2023 11:02 AM HOG SAWYER) [facility] Thyroid Stimulating Hormone 4.28(H) 0.27 - 4.20 mcunit/mL 07/23/2023 1:19 PM HOG SAWYER [facility] Blood Peripheral blood specimen / Unknown Venipuncture / Unknown 07/23/2023 11:02 AM HOG SAWYER 07/23/2023 11:14 AM [facility] Tom OSORIO LAB BLOOD ORDERAB LES Performing Organization Address [facility] Co de Phone Number [facility] Unless otherwise noted, all lab tests performed by: Division of Pathology and Laboratory Medicine [address] [place] [phone] * Free T4 (07/23/2023 11:02 AM HOG SAWYER) Pathologist [facility] T4 (Thyroxine) Free 1.23 0.93 - 1.70 ng/dL 07/23/2023 1:19 PM HOG SAWYER [facility] Blood Peripheral blood specimen / Unknown Venipuncture / Unknown 07/23/2023 11:02 AM HOG SAWYER 07/23/2023 11:14 AM [facility]ER Tom OSORIO LAB BLOOD ORDERAB LES Performing Organization Address City/[facility] Co de Phone Number [facility] Unless otherwise noted, all lab tests performed by: Division of Pathology and Laboratory Medicine [address] [place] [phone] * Total Protein (07/23/2023 11:02 AM HOG SAWYER) Pathologist [facility] Tot Protein 7.5 6.4 - 8.3 gm/dL 07/23/2023 12:15 PM HOG SAWYER [facility] Blood Peripheral blood specimen / Unknown Venipuncture / Unknown 07/23/2023 11:02 AM HOG SAWYER 07/23/2023 11:14 AM HOG SAWYER Narrative [facility] - 07/23/2023 12:15 PM HOG SAWYER Reference range established based on adult population Tom OSORIO LAB BLOOD ORDERAB LES Performing Organization Address [facility] [facility] Phone Number [facility] Unless otherwise noted, all lab tests performed by: Division of Pathology and Laboratory Medicine [address] [place] [id number] * Phosphorus Level (07/23/2023 11:02 AM [facility]) Phosphorus Level 3.5 2.5 - 4.5 mg/dL 07/23/2023 12:15 PM [facility] Blood Peripheral blood specimen / Unknown Venipuncture / Unknown 07/23/2023 11:02 AM [facility] 07/23/2023 11:14 AM [facility] Tom OSORIO LAB BLOOD ORDERAB LES Performing Organization Address City/[facility] Co de Phone Number [facility] Unless otherwise noted, all lab tests performed by: Division of Pathology and Laboratory Medicine [address] [place] [address] [phone] * Magnesium Level (07/23/2023 11:02 AM [facility]) [facility] Magnesium Level 2.0 1.6 - 2.6 mg/dL 07/23/2023 12:15 PM [facility] Blood Peripheral blood specimen / Unknown Venipuncture / Unknown 07/23/2023 11:02 AM [facility] 07/23/2023 11:14 AM [facility] Tom OSORIO LAB BLOOD ORDERAB LES Performing Organization Address City/[facility] Co de Phone Number [facility] Unless otherwise noted, all lab tests performed by: Division of Pathology and Laboratory Medicine [address] [place] [address] [phone] * (ABNORMAL) LDH (07/23/2023 11:02 AM HOG [facility]WYER) [facility] LDH 216(H) 135 - 214 U/L 07/23/2023 12:09 PM [facility] Blood Peripheral blood specimen / Unknown Venipuncture / Unknown 07/23/2023 11:02 AM [facility] 07/23/2023 11:13 AM [facility] Narrative [facility] - 07/23/2023 12:09 PM [facility] Results greater than 1651 U/L may not be reliable due to matrix effect with extended dilution as it exceeds the portfolio lead's recommended limit. Caution should be exercised when interpreting such values and done in conjunction with clinical context. Tom OSORIO LAB BLOOD ORDERAB LES [facility] Unless otherwise noted, all lab tests performed by: Division of Pathology and Laboratory Medicine [address] [place] [address] [id number] * (ABNORMAL) Hemoglobin A1c (07/23/2023 11:02 AM [facility]) [facility] Hemoglobin A1c 6.3(H) 4.3 - 5.6 % 07/23/2023 12:29 PM [facility] SA[facility] Blood Peripheral blood specimen / Unknown Venipuncture / Unknown 07/23/2023 11:02 AM [facility] 07/23/2023 11:12 AM [facility] Narrative [facility] - 07/23/2023 12:29 PM [facility] HbA1c values >=6.5% are diagnostic of diabetes mellitus. Diagnosis should be confirmed by repeat testing. Therapeutic Action suggested: >8.0% HbA1c; Goal of therapy: <7.0% HbA1c Tom OSORIO LAB BLOOD ORDERAB LES [facility] Unless otherwise noted, all lab tests performed by: Division of Pathology and Laboratory Medicine [facility] [place] [address] * Creatinine (07/23/2023 11:02 AM [facility]) Creatinine 0.70 0.51 - 0.95 mg/dL 07/23/2023 12:15 PM [facility] eGFR 94 >=60 mL/min/1.7 3 sq. m 07/23/2023 12:15 PM [facility] Comment: The eGFRcr is calculated with the [...] Unknown Venipuncture / Unknown 07/23/2023 11:02 AM [facility] 07/23/2023 11:14 AM [facility] Tom OSORIO LAB BLOOD ORDERAB LES [facility] Unless otherwise noted, all lab tests performed by: Division of Pathology and Laboratory Medicine [address] [place] [address] [id number] * Calcium Level (07/23/2023 11:02 AM [facility]) Calcium Level Total 9.4 8.2 - 10.2 mg/dL 07/23/2023 12:15 PM [facility] Blood Peripheral blood specimen / Unknown Venipuncture / Unknown 07/23/2023 11:02 AM [facility] 07/23/2023 11:14 AM [facility] Tom OSORIO LAB BLOOD ORDERAB LES Performing Organization Address [facility] Co de Phone Number [facility] Unless otherwise noted, all lab tests performed by: Division of Pathology and Laboratory Medicine [address] [place] [address] [phone] * Bilirubin Total (07/23/2023 11:02 AM [facility]) Bilirubin Total 0.3 0.0 - 1.2 mg/dL 07/23/2023 12:15 PM [facility] Blood Peripheral blood specimen / Unknown Venipuncture / Unknown 07/23/2023 11:02 AM [facility] 07/23/2023 11:14 AM [facility] Narrative [facility] - 07/23/2023 12:15 PM [facility] Indocyanine Green (ICG) may cause falsely elevated bilirubin results. Total and direct bilirubin must not be measured from samples containing indocyanine green. False elevation of total bilirubin can be seen in patients with IgG concentrations above 28 g/L. Tom OSORIO LAB BLOOD ORDERAB LES Performing Organization Address City/[facility] Co de Phone Number [facility] Unless otherwise noted, all lab tests performed by: Division of Pathology and Laboratory Medicine [address] [place] [address] [phone] * Albumin Level (07/23/2023 11:02 AM HOG SAWYER) Pathologist [facility] Albumin Level 4.5 3.5 - 5.2 gm/dL 07/23/2023 12:15 PM [facility] Blood Peripheral blood specimen / Unknown Venipuncture / Unknown 07/23/2023 11:02 AM [facility] 07/23/2023 11:14 AM [facility] Tom OSORIO LAB BLOOD ORDERAB LES [facility] Unless otherwise noted, all lab tests performed by: Division of Pathology and Laboratory Medicine [address] [place] [address] [phone] * (ABNORMAL) Electrolyte Panel (07/23/2023 11:02 AM [facility]OG [facility]ER) [facility] Sodium Level 132(L) 136 - 145 mmol/L 07/23/2023 12:15 PM [facility] Potassium Level 4.2 3.4 - 4.5 mmol/L 07/23/2023 12:15 PM [facility] Chloride 97(L) 98 - 107 mmol/L 07/23/2023 12:15 PM [facility] CO2 28 22 - 29 mmol/L 07/23/2023 12:15 PM [facility] Anion Gap 7 4 - 14 mmol/L 07/23/2023 12:15 PM [facility] Blood Peripheral blood specimen / Unknown Venipuncture / Unknown 07/23/2023 11:02 AM [facility] 07/23/2023 11:14 AM [facility] Tom OSORIO LAB BLOOD ORDERAB LES [facility] Unless otherwise noted, all lab tests performed by: Division of Pathology and Laboratory Medicine [address] [place] [address] [phone] * Confirm ABORh (07/23/2023 10:59 AM [facility]OG [facility]ER) Pathologist [facility] ABORh Confirm A POS 07/23/2023 10:[address] [facility] Blood Peripheral blood specimen / Unknown Venipuncture / Unknown 07/23/2023 10:59 AM [facility] 07/23/2023 11:13 AM [facility] Tom OSORIO BLOOD BANK TEST O RDERABLES [facility] - TRANSFUSION [facility] [address] [place] [address] * OSI Nuclear Diagnostic Exam (07/04/2023 1:07 PM HOG SAWYER) Narrative Systemgenerated, Documentation - 07/18/2023 1:07 PM [facility]ER Study acquired at another institution. For comparison only. No MD Tubbs originated interpretation requested or available. Valdemar BAEZAG OUTSIDE IMAGE ORDERABLES * OSI Barium Swallow (07/02/2023 1:07 PM [facility]) Narrative Systemgenerated, Documentation - 07/18/2023 1:07 PM [facility] Study acquired at another institution. For comparison only. No MD Tubbs originated interpretation requested or available. Valdemar Ro MD IMG OUTSIDE IMAGE ORDERABLES * OSI Chest (03/29/2023 1:08 PM [facility]ER) Narrative Systemgenerated, Documentation - 07/18/2023 1:08 PM [facility] Study acquired at another institution. For comparison only. No MD Tubbs originated interpretation requested or available. Valdemar Ro MD IMG OUTSIDE IMAGE ORDERABLES * OSI Bone Scan (03/29/2023 1:07 PM HOG [facility]WYER) Narrative Systemgenerated, Documentation - 07/18/2023 1:07 PM [facility] Study acquired at another institution. For comparison only. No MD Tubbs originated interpretation requested or available. 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 PCP - General Orthopaedic Oncology 06/30/23
[2023-10-24 18:15] LABS: Absolute Lymphocytes (CBC) 0.6 K/uL (0.7-4.9); Absolute Monocytes 0.5 K/uL (0.1-1.3); Absolute Neutrophil 5.9 K/uL (1.8-8.0); Basophils % 0.1 % (0-1.3); Eosinophils % 0.4 % (0-4.4); Hematocrit 35.8 % (36.0-45.0); Hemoglobin 12.3 g/dL (12.0-15.0); Lymphocytes % 8.8 % (15.3-44.8); MCHC 34.3 g/dL (32.0-36.0); MCV 87.3 fL (80-100); MPV 7.7 fL (7.6-11.3); Monocytes % 7.4 % (3.3-12.3); Neutrophils % 83.3 % (41.7-73.7); Nucleated Red Blood Cells % 0.1 % (0-0); Platelets 332 thou/uL (152-406)
[2023-10-24 18:36] LABS: Albumin 3.5 g/dL (3.4-5.0); Albumin/Globulin Ratio 0.9 (1.1-1.8); Anion Gap 11.8 mEq/L (5.0-15.0); Bilirubin Total 0.4 mg/dL (0.2-1.0); Globulin 3.8 g/dL (2.3-3.5); Potassium 3.8 mEq/L (3.5-5.1); Protein, Total 7.3 g/dL (6.4-8.2)
[2023-10-24] MEDS ORDERED: NA CHLORIDE 0.9% 1,000 ML ONE (19:15)
[2023-10-24] MEDS ORDERED: ONDANSETRON 4 MG/2 ML VIAL ONE (19:15)
--- NOTE | 2023-10-24 19:27 | RAD REPORT ---
EXAM DESCRIPTION: CTAbdomen Pelvis W Contrast - 10/24/2023 7:04 pm CLINICAL HISTORY: Abdominal pain. ABD PAIN COMPARISON: <Comparisons> TECHNIQUE: Biphasic CT imaging of the abdomen and pelvis was performed with 100 ml non-ionic IV cont rast. All CT scans are performed using dose optimization technique as appropriate and may include automated exposure control or mA/KV adjustment according to patient size. FINDINGS: The lung bases are clear.Small hiatal hernia. The liver, spleen, pancreas, adrenal glands and kidneys are within normal limits. No bowel obstruction, free air, free fluid or abscess. Prominent stool is seen retained throughout th e colon. The appendix is normal. No evidence of significant lymphadenopathy. Mild lower lumbar degenerative spondylosis. IMPRESSION: No acute intra-abdominal or pelvic finding.
--- NOTE | 2023-10-24 19:51 | EDPHYS ---
Physician Documentation [facility] Name: Darby Lau Age: 67 yrs Sex: Female : 1955 Arrival Date: 10/24/2023 Time: 17:16 Bed 10 Private MD: Jayashree Delgado C ED Physician Klaus Tubbs HPI: 10/23 18:11 This 67 yrs old Female presents to ER via Ambulatory with complaints of Vomiting. kb 18:11 Pt is a 67 year old female who presents for vomiting for 3 days. States she has upper kb abd pain due to vomiting. States she is unable to tolerate anything by mouth. Denies fever, sick contacts, diarrhea. . Historical: - Allergies: 17:33 Cipro; ap3 17:33 Codeine; ap3 17:33 Darvocet-N 100; ap3 17:33 Sulfa (Sulfonamide Antibiotics); ap3 - PMHx: 17:33 Back pain; Diabetes - IDDM; osteoarthritis; ap3 - Immunization history:: Client reports receiving the 2nd dose of the Covid vaccine. - Infectious Disease History:: Denies. - Social history:: Smoking status: Patient denies any tobacco usage or history of. ROS: 18:11 Constitutional: As per HPI kb Exam: 18:11 Constitutional: This is a well developed, well nourished patient who is awake, alert, kb and in no acute distress. Head/Face: Normocephalic, atraumatic. ENT: Moist Mucous membranes Cardiovascular: Regular rate Respiratory: Respirations even and unlabored. No increased work of breathing. Talking in full sentences Skin: Warm, dry with normal turgor. Normal color. MS/ Extremity: Pulses equal, no cyanosis. Neurovascular intact. Full, normal range of motion. Neuro: Awake and alert, GCS 15, oriented to person, place, time, and situation. Moves all extremities. Normal gait. 18:11 Abdomen/GI: Inspection: abdomen appears normal, Bowel sounds: normal, Palpation: soft, in all quadrants, mild abdominal tenderness, in the right upper quadrant and left upper quadrant, Vital Signs: 17:32 Pulse 87; Resp 18; Temp 98; Pulse Ox 100% ; Weight 68.04 kg; Height 5 ft. 1 in. ; Pain ap3 6/10; 17:34 BP 137 / 68; ap3 19:26 BP 122 / 68; Pulse 74; Resp 18; Pulse Ox 100% on R/A; mb9 17:32 Body Mass Index 28.34 (68.04 kg, 154.94 cm) ap3 17:32 Pain Scale: Adult ap3 MDM: 17:40 Patient medically screened. kb 18:12 Differential diagnosis: Nonspecific abd pain, gastritis, viral gastroenteritis. Data kb reviewed: vital signs, nurses notes. 19:50 Counseling: I had a detailed discussion with the patient and/or guardian regarding the kb historical points, exam findings, and any diagnostic results supporting the discharge/admit diagnosis, lab results, radiology results, the need for outpatient follow up, a family practitioner, a telecommunications line mechanic, to return to the emergency department if symptoms worsen or persist or if there are any questions or concerns that arise at home. ED course: Pt has a follow up appt with Dr Tam on Sunday. . 10/23 17:40 Order name: CBC with Diff; Complete Time: 18:19 kb 10/23 17:40 Order name: CMP; Complete Time: 18:44 kb 10/23 17:40 Order name: Lipase; Complete Time: 18:44 kb 10/23 17:40 Order name: CT Abd/Pelvis - IV Contrast Only; Complete Time: 19:29 kb 10/23 17:40 Order name: IV Saline Lock; Complete Time: 18:24 kb 10/23 17:40 Order name: Labs collected and sent; Complete Time: 18:24 kb 10/23 19:29 Order name: PO challenge; Complete Time: 19:43 kb Administered Medications: 19:27 Drug: NS 0.9% IV 500 ml IV at bolus once Route: IV; Rate: bolus; Site: left antecubital;mb9 19:51 Follow up: Response: No adverse reaction; IV Status: Completed infusion mb9 19:27 Drug: Ondansetron IVP 4 mg IVP once; over 2 minutes Route: IVP; Site: left antecubital; mb9 19:52 Follow up: Response: No adverse reaction mb9 Disposition Summary: 10/24/23 19:51 Discharge Ordered Notes: Location: Home kb Condition: Stable kb Diagnosis - Nausea with vomiting, unspecified kb Followup: kb - With: Emergency Department - When: As needed - Reason: Worsening of condition Followup: kb - With: Private Physician - When: 2 - 3 days - Reason: Recheck today's complaints, Continuance of care, Re-evaluation by your physician Discharge Instructions: - Discharge Summary Sheet kb - Nausea and Vomiting, Adult, [id number]-Vesi kb Forms: - Medication Reconciliation Form kb - Antibiotic Education kb - Prescription Opioid Use kb - Patient Portal Instructions kb - Leadership Thank You Letter kb Prescriptions: - ondansetron 4 mg Oral Tablet,disintegrating - take 1 tablet ORAL route every 6 hours As needed as needed for nausea and kb vomiting; 12 tablet; Refills: 0, Product Selection Permitted Signatures: Dispatcher [employer] EDMS Marizol Little, SCHEDULE MANAGER-C Marivel Julio RN RN ap3 Shweta Torres RN RN mb9
--- NOTE | 2023-10-24 19:51 | ER ---
Nurse's Notes [facility] Name: Darby Lau Age: 67 yrs Sex: Female : 1955 Arrival Date: 10/24/2023 Time: 17:16 Bed 10 Private MD: Jayashree Delgado C Diagnosis: Nausea with vomiting, unspecified Presentation: 10/23 17:32 Chief complaint: Patient states: she has been vomiting for approx 3 days. patient ap3 denies diarrhea. patient states she has been having abdominal pain. patient currently rates her abdominal pain as a 6/10 on the pain scale. Coronavirus screen: At this time, the client does not indicate any symptoms associated with coronavirus-19. Ebola Screen: No symptoms or risks identified at this time. Initial Sepsis Screen: Does the patient meet any 2 criteria?. Initial Sepsis Screen: Does the patient have a suspected source of infection? No. Patient's initial sepsis screen is negative. Risk Assessment: Do you want to hurt yourself or someone else? Patient reports no desire to harm self or others. Onset of symptoms was October 21, 2023. 17:32 Method Of Arrival: Ambulatory ap3 17:34 Acuity: OMID 3 ap3 Triage Assessment: 17:34 General: Appears in no apparent distress. Behavior is calm, cooperative, appropriate ap3 for age, Reports feeling ill for. Pain: Complains of pain in abdomen Pain currently is 6 out of 10 on a pain scale. Neuro: Level of Consciousness is awake, alert, obeys commands, Oriented to person, place, time, situation, Appropriate for age. Cardiovascular: Patient's skin is warm and dry. Respiratory: Airway is patent Respiratory effort is even, unlabored, Respiratory pattern is regular, symmetrical. GI: Reports lower abdominal pain, upper abdominal pain, nausea, vomiting. Historical: - Allergies: 17:33 Cipro; ap3 17:33 Codeine; ap3 17:33 Darvocet-N 100; ap3 17:33 Sulfa (Sulfonamide Antibiotics); ap3 - PMHx: 17:33 Back pain; Diabetes - IDDM; osteoarthritis; ap3 - Immunization history:: Client reports receiving the 2nd dose of the Covid vaccine. - Infectious Disease History:: Denies. - Social history:: Smoking status: Patient denies any tobacco usage or history of. Screenin:34 Abuse screen: Denies threats or abuse. Nutritional screening: No deficits noted. ap3 Tuberculosis screening: No symptoms or risk factors identified. 19:11 [facility] ED Fall Risk Assessment (Adult) History of falling in the last 3 months, mb9 including since admission No falls in past 3 months (0 pts) Confusion or Disorientation No (0 pts) Intoxicated or Sedated No (0 pts) Impaired Gait No (0 pts) Mobility Assist Device Used No (0 pt) Altered Elimination No (0 pt) Score/Fall Risk Level 0 - 2 = Low Risk Oriented to surroundings, Maintained a safe environment, Educated pt \T\ family on fall prevention, incl call for assistance when getting out of bed. Assessment: 19:27 General: Appears in no apparent distress. Behavior is calm, cooperative. Pain: mb9 Complains of pain in abdomen Pain does not radiate. Quality of pain is described as throbbing. Neuro: Castañeda Agitation-Sedation Scale (RASS): 0 - Alert and Calm Level of Consciousness is awake, alert, obeys commands, Oriented to person, place, time, situation, Appropriate for age. Cardiovascular: Patient's skin is warm and dry. Respiratory: Airway is patent Respiratory effort is even, unlabored, Respiratory pattern is regular, symmetrical. GI: Abdomen is flat, non-distended. GI: Bowel sounds present X 4 quads. Abd is soft and non tender X 4 quads. Reports nausea, vomiting. : No signs and/or symptoms were reported regarding the genitourinary system. EENT: No signs and/or symptoms were reported regarding the EENT system. Derm: Skin is pink, warm \T\ dry. Musculoskeletal: Range of motion: intact in all extremities. Vital Signs: 17:32 Pulse 87; Resp 18; Temp 98; Pulse Ox 100% ; Weight 68.04 kg; Height 5 ft. 1 in. ; Pain ap3 6/10; 17:34 BP 137 / 68; ap3 19:26 BP 122 / 68; Pulse 74; Resp 18; Pulse Ox 100% on R/A; mb9 17:32 Body Mass Index 28.34 (68.04 kg, 154.94 cm) ap3 17:32 Pain Scale: Adult ap3 ED Course: 17:18 Patient arrived in ED. rg4 17:18 Jayashree Delgado MD is Private Physician. rg4 17:34 Triage completed. ap3 17:34 Arm band placed on right wrist. ap3 17:39 Marizol Little FNP-C is [facility]. kb 17:39 Klaus Tubbs MD is Attending Physician. kb 18:23 Inserted saline lock: 20 gauge in left antecubital area, using aseptic technique. Blood jr12 collected. 18:24 CMP Sent. jr12 18:24 Lipase Sent. jr12 18:24 Urinalysis w/ reflexes Sent. jr12 19:06 CT Abd/Pelvis - IV Contrast Only In Process Unspecified. EDMS 19:11 Placed in gown. Bed in low position. Call light in reach. Side rails up X 1. Provided mb9 Education on: press call light if needing anything. Client placed on continuous cardiac and pulse oximetry monitoring. NIBP monitoring applied. 19:22 Shweta Torres, RN is Primary Nurse. mb9 19:22 No provider procedures requiring assistance completed. mb9 19:54 IV discontinued, intact, bleeding controlled, No redness/swelling at site. Pressure mb9 dressing applied. Administered Medications: 19:27 Drug: NS 0.9% IV 500 ml IV at bolus once Route: IV; Rate: bolus; Site: left antecubital;mb9 19:51 Follow up: Response: No adverse reaction; IV Status: Completed infusion mb9 19:27 Drug: Ondansetron IVP 4 mg IVP once; over 2 minutes Route: IVP; Site: left antecubital; mb9 19:52 Follow up: Response: No adverse reaction mb9 Medication: 19:22 VIS not applicable for this client. mb9 Outcome: 19:51 Discharge ordered by . kb 19:54 Discharged to home ambulatory, with family, mb9 19:54 Condition: stable 19:54 Discharge instructions given to patient, Instructed on discharge instructions, follow up and referral plans. Demonstrated understanding of instructions, follow-up care, medications, Prescriptions given X 1, 19:58 Patient left the ED. mb9 Signatures: Dispatcher [employer] EDLA Marizol Little FNP-C FNP-Valeria Lemon rg4 Marivel Tony RN LETICIA ap3 Shweta Torres, LETICIA RN mb9 Laurence Farrar jr12
[2023-10-24 21:08] VITALS: BP 122/68; TEMP 98; O2SAT 100
== END 2023-10-24 19:58 | disposition home or self-care (01) ==
LOC: ER 17:16
DX: R11.2 Nausea with vomiting, unspecified (principal)
CPT/HCPCS: 85025; 36415; 83690; 80053; 74177; 96374; 99284; Q9967; J2405; J7030

== ENCOUNTER 2024-07-23 03:33 | Emergency (ER) | payer OTHER ==
--- OUTSIDE RECORDS SUMMARY | 2024-07-23 03:36 | XMS REPORT | Clinical Summary ---
Author Name Unknown Organization [facility] Address [address] [place] [address] Care Team Providers Care Stock Crane Operator Name Role Phone Valdemar Ro MD Primary Care Provi todd Allergies Active Allergy Reactions Criticality Noted Date Comments Ciprofloxacin Rash Low 06/16/2015 Propoxyphene GI Intolerance 07/23/2023 Sulfa (Sulfonamide Antibiotics) Hives,Rash Low 06/16/2015 Triazolam Other (See Comments) 07/23/2023 Memory loss Medications famotidine (PEPCID) 20 mg tablet Take 1 [...] (50 mg) by mouth as needed. Active lutein-zeaxanth in 20 mg- 1,000 mcg cap Take 1 capsule by mouth daily. Active CALCIUM 26-VIT D3-MAGNESIUM 15 ORAL Take 1 capsule by mouth daily. Active Active Problems Problem Noted Date Diagnosed Date Type 1 diabetes mellitus 07/23/2023 Lesion of bone 07/23/2023 Encounters Date Type Department Care Team Description 08/08/2023 Telephone [facility] [address] [facility] Main [facility], 9th [place] [address] Tom Contreras PA 07/25/2023 1:10 PM FIELD ASSOCIATE Ancillary Procedure [facility] [address] [place] [address] Tom Contreras PA Lesion of bone 07/25/2023 Travel after 07/24/2023 Surgical History Surgery Date Site/Laterality Comments APPENDECTOMY 1976 COLONOSCOPY 1920 Neg HYSTERECTOMY 2001 c Bladder Suspension CHOLECYSTECTOMY 1977 Multi Stones KNEE ARTHROPLASTY Partial R 2010 [...] Arthritis 1970 Osteo Type 1 diabetes mellitus 1977 Dexcom G6& Omnipod A1C 5.9 Family History [...] 0.6 oz pur e alcohol) rarely wine Comments Unknown Sex and Gender Information Value Date Recorded Sex Assigned at Female 07/02/2023 5:09 PM FIELD ASSOCIATE Legal Sex Female 10:25 AM FIELD ASSOCIATE Gender Identity Female 07/02/2023 5:09 PM FIELD ASSOCIATE Sexual Orientation Straight 07/02/2023 5: 09 PM FIELD ASSOCIATE Obstetrics History Plan of Treatment Health Maintenance Due Date Last Done Comments Pneumococcal Vaccine: 50+ Ye ars (2 of 2 - PPSV23) 05/08/2018 03/13/2018 COVID-19 Vaccine (4 - season) 2024 03/25/2021, 07/24/2020, 06/26/2020 Influenza Vaccine (#1) 2024 01/10/2020 Procedures Procedure Name Priority Date/Time Associated Diagnosis Comments POC GLUCOSE SCREEN Routine 07/25/2023 2: [address] CHEST ABDOMEN PELVIS W CONTRAST Routine 07/25/2023 2:28 PM FIELD ASSOCIATE Lesion of bone POC GLUCOSE SCREEN Routine 07/25/2023 1: 15 PM FIELD ASSOCIATE after 07/24/2023 Results * POC Glucose Screen - Fingerstick (07/25/2023 2:32 PM FIELD ASSOCIATE) Only the most recent of2 resultswithin the time period is included. [facility] Glucose Screen 81 70 - 99 mg/dL 07/25/2023 2:34 PM [facility] POC Sample Type Capillary 07/25/2023 2:34 PM [facility] Blood 07/25/2023 2:32 PM FIELD ASSOCIATE 07/25/2023 2:34 PM [facility] - 07/25/2023 2:34 PM FIELD ASSOCIATE Capillary blood samples, e.g. obtained by fingerstick, [...] questionable test results by core lab methodology. us Tom OSORIO POCT ORDERABLES - DEVICE Final Result [facility] GRACE [place]CCONNELL [address], [facility] [address] [place] [address] * CT Chest Abdomen Pelvis with Contrast (07/25/2023 2:28 PM FIELD ASSOCIATE) Anatomical Region Laterality Modality Abdomen, Pelvis, Chest Computed Tomography 07/27/2023 11:3 4 AM FIELD ASSOCIATE Impressions 07/27/2023 12:05 PM FIELD ASSOCIATE 1. No suspicious focal masses in the [...] ITEMS/RECOMMENDATIONS*: See impression. Narrative 07/27/2023 12:05 PM FIELD ASSOCIATE FULL RESULT: Examination: CT CHEST ABDOMEN PELVIS [...] areidentified. ACTIONABLE ITEMS/RECOMMENDATIONS*: See impression. Tom OSORIO IMG CT ORDERABLES Final R esult after 07/24/2023 Insurance MEDICARE ADVANTAGE MEDICARE ADVANTAGE Care Teams Stock Crane Operator Relationship Specialty Start Date End Date Valdemar Ro MD [address] [place] [address] [email or web address] PCP - General Orthopaedic Oncology 06/30/23
[2024-07-23 06:07] LABS: ALT/SGPT 43 U/L (13-56); Albumin 3.3 g/dL (3.4-5.0); Albumin/Globulin Ratio 0.8 (1.1-1.8); Alkaline Phosphatase 125 U/L (45-117); Anion Gap 8.4 mEq/L (5.0-15.0); BUN Blood Urea Nitrogen 10 mg/dL (7-18); Bicarbonate 25 mEq/L (21-32); Bilirubin Total 0.2 mg/dL (0.2-1.0); Globulin 4.1 g/dL (2.3-3.5); Glomerular Filtration Rate 71 ml/min (=/>90); Glucose Level 168 mg/dL (74-106); NT PRO-BNP 182 pg/mL (<125); Protein, Total 7.4 g/dL (6.4-8.2); Sodium Level 136 mEq/L (136-145); Troponin High Sensitivity 4.1 pg/mL (<58.9)
[2024-07-23 06:08] LABS: AST/SGOT 30 U/L (15-37); Bilirubin Direct < 0.2 mg/dL (0-0.2); Magnesium 2.7 mg/dL (1.6-2.4); Potassium 3.4 mEq/L (3.5-5.1)
--- NOTE | 2024-07-23 06:09 | RAD REPORT ---
EXAM: XR Chest, 1 View CLINICAL HISTORY: The patient is 68 years old and is Female; Chest pain. TECHNIQUE: Single view of the chest. COMPARISON: No relevant prior studies available. FINDINGS: Lungs: No pulmonary vascular congestion or consolidation. Pleural space: Unremarkable. No pneumothorax. Heart: Unremarkable. No cardiomegaly. Mediastinum: Unremarkable. Bones/joints: No acute fracture. Upper abdomen: No free air in the visualized upper abdomen. IMPRESSION: No acute cardiopulmonary process identified. Electronically signed by: Tasneem Payan MD 07/23/2024 06:04 AM [facility] V2 Due to temporary technical issues with the PACS/[employer] reporting system, reports are being fanny d by the in-house radiologist without review as a courtesy to ensure prompt reporting the interpreting radiologist is fully responsible for the content of the report. Transcribed Date/Time: 07/23/2024 6:08 AM
--- NOTE | 2024-07-23 06:56 | ER ---
Nurse's Notes [facility] Name: Darby Lau Age: 68 yrs Sex: Female : 1955 Arrival Date: 07/23/2024 Time: 03:33 Bed 3 Private MD: Diagnosis: Drug-induced hypoglycemia without coma;Other hypoglycemia Presentation: 07/23 03:36 Chief complaint: EMS states: TONED OUT FOR LOW BLOOD SUGAR, UNRESPONSIVE. EMS REPORTS dd2 PT'S SPOUSE CALLED 911 FOR LOW BLOOD SUGAR AND NOT RESPONDING. EMS REPORTS PT'S SPOUSE ADMINISTERED GLUCAGON PRIOR TO THEIR ARRIVAL. BGS 82 ON SCENE AND PT ALERT AND RESPONDING. PT BGS 77 EN ROUTE, D10 IV INITIATED. Coronavirus screen: At this time, the client does not indicate any symptoms associated with coronavirus-19. Ebola Screen: No symptoms or risks identified at this time. Initial Sepsis Screen: Does the patient meet any 2 criteria? No. Patient's initial sepsis screen is negative. Does the patient have a suspected source of infection? No. Patient's initial sepsis screen is negative. Risk Assessment: Do you want to hurt yourself or someone else? Patient reports no desire to harm self or others. Onset of symptoms was July 23, 2024. Care prior to arrival: Medication(s) given: D10 25CC IV IV initiated. 20 GA, in the left forearm, Glucose check: 77. 03:36 Method Of Arrival: EMS: [facility] dd2 03:36 Acuity: [facility] 3 dd2 Triage Assessment: 03:43 General: Appears in no apparent distress. Behavior is calm, cooperative, appropriate dd2 for age. Pain: Denies pain. EENT: No deficits noted. No signs and/or symptoms were reported regarding the EENT system. Neuro: [place] Agitation-Sedation Scale (RASS): 0 - Alert and Calm Level of Consciousness is awake, alert, obeys commands, Oriented to person, place, time, situation, Appropriate for age. Neuro:. Cardiovascular: No deficits noted. Patient's skin is warm and dry. Respiratory: No deficits noted. Airway is patent Respiratory effort is even, unlabored, Respiratory pattern is regular, symmetrical. GI: No deficits noted. No signs and/or symptoms were reported involving the gastrointestinal system. Abdomen is non-distended, obese. : No deficits noted. No signs and/or symptoms were reported regarding the genitourinary system. Derm: No deficits noted. No signs and/or symptoms reported regarding the dermatologic system. Musculoskeletal: No deficits noted. No signs and/or symptoms reported regarding the musculoskeletal system. Circulation, motion, and sensation intact. Range of motion: intact in all extremities. Historical: - Allergies: 03:43 Cipro; dd2 03:43 Codeine; dd2 03:43 Darvocet-N 100; dd2 03:43 Sulfa (Sulfonamide Antibiotics); dd2 - PMHx: 03:43 Back pain; Diabetes - IDDM; osteoarthritis; Hypertensive disorder; Cerebrovascular dd2 accident; - Immunization history:: Adult Immunizations up to date, Client reports receiving the 2nd dose of the Covid vaccine, Flu vaccine is up to date. - Infectious Disease History:: Denies. - Social history:: Smoking status: Patient denies any tobacco usage or history of. - Family history:: not pertinent. Screenin:52 [facility] ED Fall Risk Assessment (Adult) History of falling in the last 3 months, dd2 including since admission No falls in past 3 months (0 pts) Confusion or Disorientation No (0 pts) Intoxicated or Sedated No (0 pts) Impaired Gait No (0 pts) Mobility Assist Device Used No (0 pt) Altered Elimination No (0 pt) Score/Fall Risk Level 0 - 2 = Low Risk Oriented to surroundings, Maintained a safe environment, Educated pt \T\ family on fall prevention, incl call for assistance when getting out of bed, Assessed \T\ reinforced patient's understanding of fall precautions, Hourly rounding (assess needs \T\ fall precautionary measures) done. Abuse screen: Denies threats or abuse. Denies injuries from another. Nutritional screening: On diabetic diet. Tuberculosis screening: No symptoms or risk factors identified. Assessment: 03:52 Reassessment: SEE TRIAGE ASSESSMENT FOR FULL ASSESSMENT. dd2 Vital Signs: 03:36 BP 137 / 65; Pulse 79; Resp 16; Temp 97.6(TE); Pulse Ox 99% on R/A; Weight 68.04 kg; dd2 Height 5 ft. 1 in. ; Pain 0/10; 04:30 BP 112 / 57; Pulse 72; Resp 16; Pulse Ox 100% on R/A; dd2 05:00 BP 105 / 54; Pulse 63; Resp 16; Pulse Ox 99% on R/A; dd2 05:30 BP 114 / 71; Pulse 67; Resp 15; Pulse Ox 100% on R/A; dd2 03:36 Body Mass Index 28.34 (68.04 kg, 154.94 cm) dd2 03:36 Pain Scale: Adult dd2 [place] Coma Score: 03:52 Eye Response: spontaneous(4). Motor Response: obeys commands(6). Verbal Response: dd2 oriented(5). Total: 15. 23:41 Eye Response: spontaneous(4). Motor Response: obeys commands(6). Verbal Response: sp4 oriented(5). Total: 15. ED Course: 03:34 Patient arrived in ED. dd2 03:36 CECILIA AL, RN is Primary Nurse. dd2 03:43 Triage completed. dd2 03:43 Arm band placed on right wrist. dd2 03:52 Patient has correct armband on for positive identification. Bed in low position. Call dd2 light in reach. Side rails up X2. Client placed on continuous cardiac and pulse oximetry monitoring. NIBP monitoring applied. Door closed. Noise minimized. Warm blanket given. Pillow given. Verbal reassurance given. 03:52 No provider procedures requiring assistance completed. Maintain EMS IV. Dressing dd2 intact. Good blood return noted. Site clean \T\ dry. Gauge \T\ site: 22G LT FOREARM. Flushed with 10 mL NS. Patient maintains SpO2 saturation greater than 95% on room air. 03:56 Cm Salgado MD is Attending Physician. sp4 04:21 XRAY Chest (1 view) In Process Unspecified. EDMS 05:49 PT REFUSED EKG AND FURTHER LAB DRAW. IV discontinued, intact, bleeding controlled, No dd2 redness/swelling at site. Pressure dressing applied. 07:04 Provided Education on: D/C EDUCATION. dd2 Administered Medications: No medications were administered Medication: 03:52 VIS not applicable for this client. dd2 Outcome: 06:56 Discharge ordered by . sp4 07:04 Discharged to home ambulatory, dd2 07:04 Condition: improved 07:04 Discharge instructions given to patient, significant other, Instructed on discharge instructions, follow up and referral plans. medication usage, Demonstrated understanding of instructions, follow-up care, medications, 07:05 Patient left the ED. dd2 Signatures: Dispatcher [employer] Cm Camp MD MD sp4 CECILIA AL RN RN dd2
--- NOTE | 2024-07-23 06:56 | EDPHYS ---
Physician Documentation [facility] Name: Darby Lau Age: 68 yrs Sex: Female : 1955 Arrival Date: 07/23/2024 Time: 03:33 Bed 3 Private MD: ED Physician Cm Salgado HPI: 07/23 03:59 This 68 yrs old Female presents to ER via EMS with complaints of Low Blood sp4 Sugar. 23:40 68 -year-old female presents with acute hypoglycemic episode.. sp4 23:41 Patient is positive for Dexcom device and insulin pump. sp4 Historical: - Allergies: 03:43 Cipro; dd2 03:43 Codeine; dd2 03:43 Darvocet-N 100; dd2 03:43 Sulfa (Sulfonamide Antibiotics); dd2 - PMHx: 03:43 Back pain; Diabetes - IDDM; osteoarthritis; Hypertensive disorder; Cerebrovascular dd2 accident; - Immunization history:: Adult Immunizations up to date, Client reports receiving the 2nd dose of the Covid vaccine, Flu vaccine is up to date. - Infectious Disease History:: Denies. - Social history:: Smoking status: Patient denies any tobacco usage or history of. - Family history:: not pertinent. ROS: 23:40 Constitutional: Negative for fever, chills, and weight loss, positive for sp4 hypoglycemia 23:40 All other systems are negative, Exam: 23:41 Constitutional: This is a well developed, well nourished patient who is awake, alert, sp4 and in no acute distress. There is lower abdominal insulin pump and lower abdominal Dexcom device left lower abdominal location Head/Face: Normocephalic, atraumatic. Eyes: Pupils equal round and reactive to light, extra-ocular motions intact. Lids and lashes normal. Conjunctiva and sclera are not injected. Cornea within normal limits. Periorbital areas with no swelling, redness, or edema. ENT: Nares patent. No nasal discharge, no septal abnormalities noted. Tympanic membranes are normal and external auditory canals are clear. Oropharynx with no redness, swelling, or masses, exudates, or evidence of obstruction, uvula midline. Mucous membranes moist. Neck: Trachea midline, no thyromegaly or masses palpated, and no cervical lymphadenopathy. Supple, full range of motion without nuchal rigidity, or vertebral point tenderness. Chest/axilla: Normal chest wall appearance and motion. Nontender with no deformity. No lesions are appreciated. Cardiovascular: Regular rate and rhythm with a normal S1 and S2. No gallops, murmurs, or rubs. Normal PMI, no JVD. No pulse deficits. Respiratory: Lungs have equal breath sounds bilaterally, clear to auscultation and percussion. No rales, rhonchi or wheezes noted. No increased work of breathing, no retractions or nasal flaring. Abdomen/GI: Soft, with normal bowel sounds. No distension or tympany. No guarding or rebound. No evidence of tenderness throughout. Back: No spinal tenderness. No costovertebral tenderness. Skin: Warm, dry with normal turgor. Normal color with no rashes, no lesions, and no evidence of cellulitis. MS/ Extremity: Pulses equal, no cyanosis. Neurovascular intact. Full, normal range of motion. Neuro: Awake and alert, GCS 15, oriented to person, place, time, and situation. Cranial nerves II-XII grossly intact. Motor strength 5/5 in all extremities. Sensory grossly intact. Psych: Awake, alert, with orientation to person, place and time. Behavior, mood, and affect are within normal limits Vital Signs: 03:36 BP 137 / 65; Pulse 79; Resp 16; Temp 97.6(TE); Pulse Ox 99% on R/A; Weight 68.04 kg; dd2 Height 5 ft. 1 in. ; Pain 0/10; 04:30 BP 112 / 57; Pulse 72; Resp 16; Pulse Ox 100% on R/A; dd2 05:00 BP 105 / 54; Pulse 63; Resp 16; Pulse Ox 99% on R/A; dd2 05:30 BP 114 / 71; Pulse 67; Resp 15; Pulse Ox 100% on R/A; dd2 03:36 Body Mass Index 28.34 (68.04 kg, 154.94 cm) dd2 03:36 Pain Scale: Adult dd2 [place] Coma Score: 03:52 Eye Response: spontaneous(4). Motor Response: obeys commands(6). Verbal Response: dd2 oriented(5). Total: 15. 23:41 Eye Response: spontaneous(4). Motor Response: obeys commands(6). Verbal Response: sp4 oriented(5). Total: 15. MDM: 04:01 Medical Screening Exam initiated sp4 23:41 Differential diagnosis: DKA, hyperglycemia, hyperthyroidism, hypothyroidism, myxedema sp4 coma. Data reviewed: vital signs, nurses notes, lab test result(s), radiologic studies. Consideration of Admission/Observation Escalation of care including admission/observation considered. ED course: Blood sugars remained stable in the emergency room. Patient was discharged home. Advise close follow-up with primary care physician for Dexcom and insulin pump adjustment.. 07/23 03:56 Order name: Basic Metabolic Panel; Complete Time: 06:54 sp4 07/23 03:56 Order name: LFT's; Complete Time: 06:54 sp4 07/23 03:56 Order name: Magnesium; Complete Time: 06:54 sp4 07/23 03:56 Order name: NT PRO-BNP; Complete Time: 06:54 sp4 07/23 03:56 Order name: Troponin HS; Complete Time: 06:54 sp4 07/23 05:38 Order name: Glucose, Ancillary Testing; Complete Time: 06:07 EDMS 07/23 06:24 Order name: Glucose, Ancillary Testing; Complete Time: 06:54 EDMS 07/23 06:55 Order name: Glucose, Ancillary Testing; Complete Time: 23:43 EDMS 07/23 03:56 Order name: XRAY Chest (1 view); Complete Time: 06:54 sp4 07/23 03:56 Order name: Cardiac monitoring; Complete Time: 05:48 sp4 07/23 03:56 Order name: IV Saline Lock; Complete Time: 04:01 sp4 07/23 03:56 Order name: Labs collected and sent; Complete Time: 05:48 sp4 07/23 03:56 Order name: O2 Per Protocol; Complete Time: 04:01 sp4 07/23 03:56 Order name: O2 Sat Monitoring; Complete Time: 04:01 sp4 Administered Medications: No medications were administered Disposition Summary: 07/23/24 06:56 Discharge Ordered Notes: Check your insulin Pump with your Primary MD Location: Home sp4 Problem: new sp4 Symptoms: have improved sp4 Condition: Stable sp4 Diagnosis - Drug-induced hypoglycemia without coma sp4 - Other hypoglycemia sp4 Followup: sp4 - With: Private Physician - When: 7 - 10 days - Reason: Recheck today's complaints Discharge Instructions: - Discharge Summary Sheet sp4 - Hypoglycemia sp4 Forms: - Patient Portal Instructions sp4 Signatures: Dispatcher [employer] Cm Camp MD MD sp4 CECILIA AL RN RN dd2 Corrections: (The following items were deleted from the chart) 03:56 03:56 BASIC METABOLIC PANEL+C.LAB.BRZ ordered. EDMS EDMS 03:56 03:56 CBC+H.LAB.BRZ ordered. EDMS EDMS 03:56 03:56 HEPATIC FUNCTION+C.LAB.BRZ ordered. EDMS EDMS 03:56 03:56 MAGNESIUM+C.LAB.BRZ ordered. EDMS EDMS 03:56 03:56 PROBNP+C.LAB.BRZ ordered. EDMS EDMS 03:56 03:56 PROTIME (+INR)+COAG.LAB.BRZ ordered. EDMS EDMS 03:56 03:56 Troponin High Sensitivity+C.LAB.BRZ ordered. EDMS EDMS 03:56 03:56 Chest Single View+RAD.RAD.BRZ ordered. EDMS EDMS 07:03 03:56 EKG - Nurse/Tech ordered. sp4 dd2
[2024-07-23 07:17] VITALS: TEMP 97.6
[2024-07-23 07:30] VITALS: BP 114/71; O2SAT 100
== END 2024-07-23 07:05 | disposition home or self-care (01) ==
LOC: ER 03:33
DX: E16.0 Drug-induced hypoglycemia without coma (principal); E11.649 Type 2 diabetes mellitus with hypoglycemia without coma; Z96.41 Presence of insulin pump (external) (internal)
CPT/HCPCS: 71045; 80048; 80076; 82947; 83735; 83880; 84484

== ENCOUNTER 2024-09-07 03:21 | Emergency (ER) | payer OTHER ==
[2024-09-07] MEDS ORDERED: D5 0.9 NS 1,000 ML IV ONE (03:53)
[2024-09-07 03:57] LABS: Absolute Eosinophils 0.2 K/uL (0-0.5); Absolute Lymphocytes (CBC) 1.2 K/uL (0.7-4.9); Absolute Monocytes 0.8 K/uL (0.1-1.3); Absolute Neutrophil 2.7 K/uL (1.8-8.0); Basophils % 0.9 % (0-1.3); Eosinophils % 4.3 % (0-4.4); Hematocrit 32.2 % (36.0-45.0); Hemoglobin 11.1 g/dL (12.0-15.0); Lymphocytes % 24.7 % (15.3-44.8); MCH 28.8 pg (27.0-35.0); MCHC 34.4 g/dL (32.0-36.0); MCV 83.8 fL (80-100); MPV 8.2 fL (7.6-11.3); Monocytes % 15.2 % (3.3-12.3); Neutrophils % 54.9 % (41.7-73.7); Platelets 267 thou/uL (152-406); RBC Red Blood Cell Count 3.84 M/uL (3.86-4.86); Red Cell Distribution Width 14.9 % (12.1-15.2)
[2024-09-07 03:59] LABS: PT Prothrombin Time 10.7 SECONDS (10-13.0); Protime INR 0.94
[2024-09-07 04:14] LABS: ALT/SGPT 30 U/L (13-56); AST/SGOT 24 U/L (15-37); Albumin/Globulin Ratio 0.9 (1.1-1.8); Alkaline Phosphatase 100 U/L (45-117); BUN Blood Urea Nitrogen 5 mg/dL (7-18); Bicarbonate 26 mEq/L (21-32); Bilirubin Total 0.2 mg/dL (0.2-1.0); Globulin 3.3 g/dL (2.3-3.5); Glomerular Filtration Rate 82 ml/min (=/>90); Glucose Level 132 mg/dL (74-106); Magnesium 1.8 mg/dL (1.6-2.4); NT PRO-BNP 411 pg/mL (<125); Protein, Total 6.3 g/dL (6.4-8.2); Sodium Level 131 mEq/L (136-145); Troponin High Sensitivity 6.9 pg/mL (<58.9)
[2024-09-07 04:20] LABS: Bilirubin Direct < 0.2 mg/dL (0-0.2)
[2024-09-07] MEDS ORDERED: DIPHENHYDRAMINE 25 MG TAB/CAP ONE (04:47)
--- NOTE | 2024-09-07 05:50 | RAD REPORT ---
EXAM: XR Chest, 1 View CLINICAL HISTORY: The patient is 68 years old and is Female; CHEST PAIN TECHNIQUE: Frontal view of the chest. COMPARISON: No relevant prior studies available. FINDINGS: Lungs: Unremarkable. No consolidation. Pleural space: Unremarkable. No pneumothorax. Heart: Unremarkable. Mediastinum: Unremarkable. Normal mediastinal contour. Bones/joints: No acute findings. IMPRESSION: No acute findings in the chest. Electronically signed by: Alexy Gomez MD 09/07/2024 04:51 AM CDT 8 Due to temporary technical issues with the PACS/[employer] reporting system, reports are being fanny d by the in-house radiologist without review as a courtesy to ensure prompt reporting the interpreting radiologist is fully responsible for the content of the report. Transcribed Date/Time: 09/07/2024 5:50 AM
--- NOTE | 2024-09-07 06:53 | EDPHYS ---
Physician Documentation [facility] Name: Darby Lau Age: 68 yrs Sex: Female : 1955 Arrival Date: 09/07/2024 Time: 03:21 Bed 13 Private MD: ED Physician Cm Salgado HPI: 09/07 06:44 This 68 yrs old Female presents to ER via EMS with complaints of Low Blood sp4 Sugar. 09/08 04:45 Patient presents with hypoglycemic episode at home.. sp4 04:45 Patient has Dexcom device a lot of patient was found that sugar was in the 20s.. sp4 Patient arrives here with blood sugar improved after administration of p.o. dextrose. . Historical: - Allergies: 09/07 03:30 Cipro; kd4 03:30 Codeine; kd4 03:30 Darvocet-N 100; kd4 03:30 Sulfa (Sulfonamide Antibiotics); kd4 - PMHx: 03:30 Back pain; Cerebrovascular accident; Diabetes - IDDM; Hypertensive disorder; kd4 osteoarthritis; - Immunization history:: Adult Immunizations up to date. - Infectious Disease History:: Denies. - Family history:: not pertinent. - Social history:: Smoking status: Patient denies any tobacco usage or history of. Patient/guardian denies using. ROS: 09/08 04:45 Constitutional: Negative for fever, chills, and weight loss, positive for low blood sp4 sugar at home All other systems are negative, Exam: 04:45 Constitutional: This is a well developed, well nourished patient who is awake, alert, sp4 and in no acute distress. Head/Face: Normocephalic, atraumatic. Eyes: Pupils equal round and reactive to light, extra-ocular motions intact. Lids and lashes normal. Conjunctiva and sclera are not injected. Cornea within normal limits. Periorbital areas with no swelling, redness, or edema. ENT: Nares patent. No nasal discharge, no septal abnormalities noted. Tympanic membranes are normal and external auditory canals are clear. Oropharynx with no redness, swelling, or masses, exudates, or evidence of obstruction, uvula midline. Mucous membranes moist. Neck: Trachea midline, no thyromegaly or masses palpated, and no cervical lymphadenopathy. Supple, full range of motion without nuchal rigidity, or vertebral point tenderness. Chest/axilla: Normal chest wall appearance and motion. Nontender with no deformity. No lesions are appreciated. Cardiovascular: Regular rate and rhythm with a normal S1 and S2. No gallops, murmurs, or rubs. Normal PMI, no JVD. No pulse deficits. Respiratory: Lungs have equal breath sounds bilaterally, clear to auscultation and percussion. No rales, rhonchi or wheezes noted. No increased work of breathing, no retractions or nasal flaring. Abdomen/GI: Soft, with normal bowel sounds. No distension or tympany. No guarding or rebound. No evidence of tenderness throughout. Back: No spinal tenderness. No costovertebral tenderness. Skin: Warm, dry with normal turgor. Normal color with no rashes, no lesions, and no evidence of cellulitis. MS/ Extremity: Pulses equal, no cyanosis. Neurovascular intact. Full, normal range of motion. Neuro: Awake and alert, GCS 15, oriented to person, place, time, and situation. Cranial nerves II-XII grossly intact. Motor strength 5/5 in all extremities. Sensory grossly intact. Psych: Awake, alert, with orientation to person, place and time. Behavior, mood, and affect are within normal limits Vital Signs: 09/07 03:32 BP 142 / 65; Pulse 67; Resp 18; Temp 98.4(O); Pulse Ox 97% on R/A; Pain 0/10; kd4 05:29 BP 124 / 58; Pulse 63; Resp 18; Temp 98.2; Pulse Ox 98% on R/A; Pain 0/10; kd4 07:07 BP 159 / 88; Pulse 74; Resp 15; Pulse Ox 98% ; kd4 03:32 Pain Scale: Adult kd4 05:29 Pain Scale: Adult kd4 Willard Coma Score: 03:30 Eye Response: spontaneous(4). Motor Response: obeys commands(6). Verbal Response: kd4 oriented(5). Total: 15. 09/08 04:45 Eye Response: spontaneous(4). Motor Response: obeys commands(6). Verbal Response: sp4 oriented(5). Total: 15. MDM: 09/07 03:29 Medical Screening Exam initiated sp4 06:44 ED course: FINDINGS: Lungs: Unremarkable. No consolidation. Pleural space: sp4 Unremarkable. No pneumothorax. Heart: Unremarkable. Mediastinum: Unremarkable. Normal mediastinal contour. Bones/joints: No acute findings. IMPRESSION: No acute findings in the chest. 09/08 04:47 Differential diagnosis: diabetes insipidus, DKA, hyperglycemia, hyperthyroidism, sp4 hypothyroidism, myxedema coma, new onset diabetes. Data reviewed: vital signs, nurses notes, EMS record, lab test result(s), radiologic studies. Consideration of Admission/Observation Escalation of care including admission/observation considered. ED course: Patient blood sugar stable in ER. Patient can be released home. 09/07 03:27 Order name: Basic Metabolic Panel; Complete Time: 06:36 sp4 09/07 03:27 Order name: CBC with Diff; Complete Time: 06:36 sp4 09/07 03:27 Order name: LFT's; Complete Time: 06:36 sp4 09/07 03:27 Order name: Magnesium; Complete Time: 06:36 sp4 09/07 03:27 Order name: NT PRO-BNP; Complete Time: 06:36 sp4 09/07 03:27 Order name: PT-INR; Complete Time: 06:36 sp4 09/07 03:27 Order name: Troponin HS; Complete Time: 06:36 sp4 09/07 03:27 Order name: XRAY Chest (1 view) sp4 09/07 03:27 Order name: Cardiac monitoring; Complete Time: 05:53 sp4 09/07 03:27 Order name: EKG - Nurse/Tech; Complete Time: 05:52 sp4 09/07 03:27 Order name: IV Saline Lock; Complete Time: 05:52 sp4 09/07 03:27 Order name: Labs collected and sent; Complete Time: 05:52 sp4 09/07 03:27 Order name: O2 Per Protocol; Complete Time: 05:52 sp4 09/07 03:27 Order name: O2 Sat Monitoring; Complete Time: 05:52 sp4 Administered Medications: 09/07 03:56 Drug: D5-NS IV 1000 ml IV at 75 ml/hr continuous Route: IV; Rate: 75 ml/hr; Site: right kd4 forearm; 07:07 Follow up: IV Status: Completed infusion kd4 04:35 CANCELLED (Other Intervention Used): [id number] mg PO once lg3 04:51 CANCELLED (not avaliablee): [id number] mg PO once lg3 04:52 Drug: diphenhydrAMINE PO 50 mg PO once Route: PO; lg3 07:07 Follow up: Response: No adverse reaction kd4 Disposition: 09/08 04:47 Chart complete. sp4 Disposition Summary: 09/07/24 06:53 Discharge Ordered Notes: Location: Home sp4 Problem: new sp4 Symptoms: have improved sp4 Condition: Stable sp4 Diagnosis - Other hypoglycemia sp4 - Hypoglycemia secondary to insulin sp4 Followup: sp4 - With: Gildardo Delgado MD - When: 7 - 10 days - Reason: Recheck today's complaints Discharge Instructions: - Discharge Summary Sheet sp4 - Hypoglycemia, Akrl-ls-Wznr sp4 Forms: - Patient Portal Instructions sp4 Addendum: 09/09/2024 21:57 Addendum: EKG at 09/07/2024 EKG time 0 4:15 AM normal sinus rhythm rate 66, no ectopy, s p4 normal intervals, no ST elevation or depression, no signs of acute ischemia.. Signatures: Dispatcher [employer] EDMS Kira Javed RN RN lg3 Cm Salgado MD MD sp4 Vandana Clay RN RN kd4 Corrections: (The following items were deleted from the chart) 09/07 03:28 03:28 BASIC METABOLIC PANEL+C.LAB.BRZ ordered. EDMS EDMS 03:28 03:28 CBC+H.LAB.BRZ ordered. EDMS EDMS 03:28 03:28 HEPATIC FUNCTION+C.LAB.BRZ ordered. EDMS EDMS 03:28 03:28 MAGNESIUM+C.LAB.BRZ ordered. EDMS EDMS 03:28 03:28 PROBNP+C.LAB.BRZ ordered. EDMS EDMS 03:28 03:28 PROTIME (+INR)+COAG.LAB.BRZ ordered. EDMS EDMS 03:28 03:28 Troponin High Sensitivity+C.LAB.BRZ ordered. EDMS EDMS 03:28 03:28 Chest Single View+RAD.RAD.BRZ ordered. EDMS EDMS 04:35 04:34 Pseudoephedrine PO 120 mg PO once ordered. lg3 lg3 04:51 04:35 Pseudoephedrine PO 60 mg PO once ordered. lg3 lg3
--- NOTE | 2024-09-07 06:53 | ER ---
Nurse's Notes [facility] Name: Darby Lau Age: 68 yrs Sex: Female : 1955 Arrival Date: 09/07/2024 Time: 03:21 Bed 13 Private MD: Diagnosis: Other hypoglycemia;Hypoglycemia secondary to insulin Presentation: 09/07 03:32 Chief complaint: Patient states: low blood sugar. Coronavirus screen: Client denies kd4 travel out of the [place] in the last 14 days. Ebola Screen: Patient negative for fever greater than or equal to 101.5 degrees Fahrenheit, and additional compatible Ebola Virus Disease symptoms. Initial Sepsis Screen: Does the patient meet any 2 criteria? No. Patient's initial sepsis screen is negative. Does the patient have a suspected source of infection? No. Patient's initial sepsis screen is negative. Risk Assessment: Do you want to hurt yourself or someone else? Patient reports no desire to harm self or others. Onset of symptoms was September 07, 2024. 03:32 Method Of Arrival: EMS kd4 03:32 Acuity: OMID 3 kd4 Triage Assessment: 03:32 General: Appears in no apparent distress. Behavior is calm, cooperative. kd4 05:27 General:. kd4 05:28 General: Patient present via ems with c/o of low blood sugar. on arrival a/o x 4. kd4 denies cp, sob,fever.. Historical: - Allergies: 03:30 Cipro; kd4 03:30 Codeine; kd4 03:30 Darvocet-N 100; kd4 03:30 Sulfa (Sulfonamide Antibiotics); kd4 - PMHx: 03:30 Back pain; Cerebrovascular accident; Diabetes - IDDM; Hypertensive disorder; kd4 osteoarthritis; - Immunization history:: Adult Immunizations up to date. - Infectious Disease History:: Denies. - Family history:: not pertinent. - Social history:: Smoking status: Patient denies any tobacco usage or history of. Patient/guardian denies using. Screenin:44 Abuse screen: Denies threats or abuse. Nutritional screening: No deficits noted. kd4 Tuberculosis screening: No symptoms or risk factors identified. 04:17 [facility] ED Fall Risk Assessment (Adult) History of falling in the last 3 months, kd4 including since admission No falls in past 3 months (0 pts) Confusion or Disorientation No (0 pts) Intoxicated or Sedated No (0 pts) Impaired Gait No (0 pts) Mobility Assist Device Used No (0 pt) Altered Elimination No (0 pt) Score/Fall Risk Level 0 - 2 = Low Risk Oriented to surroundings, Educated pt \T\ family on fall prevention, incl call for assistance when getting out of bed. Assessment: 03:28 Pain: Denies pain. Neuro: No deficits noted. Cardiovascular: No deficits noted. kd4 Respiratory: Denies shortness of breath. Vital Signs: 03:32 BP 142 / 65; Pulse 67; Resp 18; Temp 98.4(O); Pulse Ox 97% on R/A; Pain 0/10; kd4 05:29 BP 124 / 58; Pulse 63; Resp 18; Temp 98.2; Pulse Ox 98% on R/A; Pain 0/10; kd4 07:07 BP 159 / 88; Pulse 74; Resp 15; Pulse Ox 98% ; kd4 03:32 Pain Scale: Adult kd4 05:29 Pain Scale: Adult kd4 Willard Coma Score: 03:30 Eye Response: spontaneous(4). Motor Response: obeys commands(6). Verbal Response: kd4 oriented(5). Total: 15. 0421 04:45 Eye Response: spontaneous(4). Motor Response: obeys commands(6). Verbal Response: sp4 oriented(5). Total: 15. ED Course: 09/07 03:23 Patient arrived in ED. br2 03:27 Cm Salgado MD is Attending Physician. sp4 03:28 Vandana Clay, LETICIA is Primary Nurse. kd4 03:30 Patient has correct armband on for positive identification. Bed in low position. Call kd4 light in reach. Side rails up X2. 03:34 Triage completed. kd4 03:42 XRAY Chest (1 view) In Process Unspecified. EDMS 03:44 Client placed on continuous cardiac and pulse oximetry monitoring. NIBP monitoring kd4 applied. radiation monitor on. Pulse ox on. NIBP on. 03:44 Initial lab(s) drawn, by me, sent to lab. Inserted saline lock: 20 gauge in right kd4 forearm, using aseptic technique. 04:17 EKG done. kd4 06:51 Delgado, Gildardo, MD is Referral Physician. sp4 07:11 No provider procedures requiring assistance completed. Patient did not have IV access bp during this emergency room visit. intact, bleeding controlled, No redness/swelling at site. Pressure dressing applied. 07:12 Arm band placed on. bp Administered Medications: 03:56 Drug: D5-NS IV 1000 ml IV at 75 ml/hr continuous Route: IV; Rate: 75 ml/hr; Site: right kd4 forearm; 07:07 Follow up: IV Status: Completed infusion kd4 04:35 CANCELLED (Other Intervention Used): jvizqmczwiwlxig693 mg PO once lg3 04:51 CANCELLED (not avaliablee): wdvroeetlnwruzi73 mg PO once lg3 04:52 Drug: diphenhydrAMINE PO 50 mg PO once Route: PO; lg3 07:07 Follow up: Response: No adverse reaction kd4 Medication: 03:30 VIS not applicable for this client. kd4 Outcome: 06:53 Discharge ordered by MD. sp4 07:11 Discharged to home ambulatory, bp 07:11 Condition: stable 07:11 Discharge instructions given to patient, Instructed on discharge instructions, follow up and referral plans. Demonstrated understanding of instructions, follow-up care, 07:12 Patient left the ED. bp Signatures: Dispatcher [employer] EDLes [place], RN RN Kira Lopes RN RN [email or web address] Cm Salgado MD MD sp4 Vandana Clay RN RN kd4 Xin Stein RN RN br2
[2024-09-07 07:38] VITALS: TEMP 98.2; O2SAT 98
[2024-09-07 07:40] VITALS: BP 159/88
--- NOTE | 2024-09-10 12:49 | EKG ---
Test Date: 2024-09-07 Test Time: 04:15:11 Rubber Compounder Supervisor: MARIE MEASUREMENT RESULTS: Intervals: Rate: 66 SC: 162 QRSD: 76 QT: 428 QTc: 448 [place]: P: 55 SC: 162 QRS: 32 T: 39 INTERPRETIVE STATEMENTS: Normal sinus rhythm Normal ECG Compared to ECG 09/18/2023 17:00:37 No significant changes Electronically Signed On 09-10-24 12:41:15 CDT by Srinivas Angeles
== END 2024-09-07 07:12 | disposition home or self-care (01) ==
LOC: ER 03:21
DX: E16.1 Other hypoglycemia (principal)
CPT/HCPCS: 96365; 93005; 85025; 80048; 36415; 83735; 85610; 82947; 80076; 84484; 83880; 71045; 99285; 96366; J7042

== ENCOUNTER 2025-01-14 05:10 | Observation (INO) | payer OTHER ==
--- OUTSIDE RECORDS SUMMARY | 2025-01-14 05:13 | XMS REPORT | Clinical Summary ---
Author Name Unknown Organization [facility] Address [address] [place] [address] Care Team Providers Care Equity Research Analyst Name Role Phone Valdemar Ro MD Primary [...] diabetes mellitus 07/23/2023 Lesion of bone 07/23/2023 Surgical History Surgery Date Site/Laterality Comments APPENDECTOMY 1977 COLONOSCOPY 1920 Neg HYSTERECTOMY 2001 c Bladder [...] osis, Scleroderma -Other cancer Paternal Grandfather Aba Kwok mous Cell Carcinoma Relation Name Status Comments [...] Sex Assigned at Female 07/02/2023 5:09 PM DIRECTOR METABOLISM Legal Sex Female 10:25 AM DIRECTOR METABOLISM Gender Identity Female 07/02/2023 5:09 PM DIRECTOR METABOLISM Sexual Orientation Straight 07/02/2023 5: 09 PM DIRECTOR METABOLISM Obstetrics History Plan of Treatment Health Maintenance Due Date Last Done Comments Pneumococcal Vaccine: 50+ Ye ars (2 of 2 - PPSV23, PCV20, or PCV21) 05/08/2018 03/13/2018 COVID-19 Vaccine ( season) 2024 03/25/2021, 07/24/2020, 06/26/2020 Influenza Vaccine (#1) 2025 01/10/2020 Insurance MEDICARE ADVANTAGE Care Teams Equity Research Analyst Relationship Specialty Start Date End Date Valdemar Ro MD [address] [place] [id number] [email or web address] PCP - General Orthopaedic Oncology 06/30/23
[2025-01-14 06:01] LABS: Absolute Lymphocytes (CBC) 1.4 K/uL (0.7-4.9); Hematocrit 34.2 % (36.0-45.0); Hemoglobin 11.8 g/dL (12.0-15.0); MCH 28.8 pg (27.0-35.0); MCHC 34.5 g/dL (32.0-36.0); MCV 83.5 fL (80-100); MPV 8.5 fL (7.6-11.3); Nucleated RBC Absolute Count 0.0 (0-0); Nucleated Red Blood Cells % 0.0 % (0-0); RBC Red Blood Cell Count 4.10 M/uL (3.86-4.86); White Blood Count 5.80 thou/uL (4.3-10.9)
[2025-01-14 06:07] LABS: PT Prothrombin Time 11.0 SECONDS (10-13.0); PTT, Activated Partial Thromb 27.0 SECONDS (27.2-37.4); Protime INR 0.97
[2025-01-14 06:14] LABS: ALT/SGPT 31 U/L (13-56); AST/SGOT 22 U/L (15-37); Albumin 3.3 g/dL (3.4-5.0); Albumin/Globulin Ratio 1.0 (1.1-1.8); Alkaline Phosphatase 83 U/L (45-117); Anion Gap 8.6 mEq/L (5.0-15.0); BUN Blood Urea Nitrogen 8 mg/dL (7-18); Globulin 3.2 g/dL (2.3-3.5); Glucose Level 92 mg/dL (74-106); Magnesium 1.9 mg/dL (1.6-2.4); Potassium 3.6 mEq/L (3.5-5.1); Troponin High Sensitivity 4.3 pg/mL (<58.9)
[2025-01-14 06:15] LABS: Bilirubin Indirect, Calculated 0.1 mg/dL (0.2-0.8)
--- NOTE | 2025-01-14 06:52 | RAD REPORT ---
ADDENDUM #1 Addendum: Dr. Gutierrez discussed these code stroke findings with Horacio Garcia MD via telephone at [facility] 07:19 hours EST on 01/14/2025. Electronically signed by: Enrrique Gutierrez MD 01/14/2025 06:42 AM CDT RP End of Addendum PROCEDURE: CT Head Without Intravenous Contrast CLINICAL INDICATION: The patient is 69 years old and is Female; STROKE ALERT Bed Name: 19 TECHNIQUE: Axial computed tomography images of the head/brain without intravenous contrast. Sagittal and coron al reformatted images were created and reviewed. This CT exam was performed using one or more of the following dose reduction techniques: automated exposure control, adjustment of the mA and/or kV according to patient size, and/or use of iterative reconstruction technique. COMPARISON: 12/03/2024 CT head without contrast. FINDINGS: BRAIN: Remote left lateral basal ganglia lacunar infarct. No extra-axial fluid collection. No abnormal mass effect. No appreciable cerebral edema. No intracranial hemorrhage. No transtentorial herniation. No focal wolfe-white matter differentiation abnormality. MIDLINE SHIFT: No midline shift. VENTRICLES: Unremarkable No ventriculomegaly. BONES/JOINTS: No fracture of the calvarium or visualized facial bones. SOFT TISSUES: Unremarkable SINUSES: No masses, bony erosion or evidence of acute sinusitis. MASTOID AIR CELLS: Unremarkable as visualized. No mastoid effusion. * A single impression for all exams can be found at the end of this report PROCEDURE: CT Angiography Head and Neck With Intravenous Contrast CLINICAL INDICATION: The patient is 69 years old and is Female; STROKE ALERT Bed Name: 19 TECHNIQUE: [place]/head and neck CT angiography protocol performed with intravenous contrast. Sagitta l and coronal reformatted images were created and reviewed. This CT exam was performed using one or more of the following dose reduction techniques: automated exposure control, adjustment of the m A and/or kV according to patient size, and/or use of iterative reconstruction technique. MIP reconstructed images were created and reviewed. COMPARISON: 12/03/2024 CTA head and neck. FINDINGS: HEAD: RIGHT ANTERIOR CEREBRAL ARTERY: Hypoplastic appearance of the right ALFRED A1 segment with no discrete occlusion or high-grade stenosis. Left and right ALFRED segments predominantly perfused via the left ALFRED A1 segment. Anterior communicating artery is present. No aneurysm. RIGHT MIDDLE CEREBRAL ARTERY: Unremarkable No occlusion or significant stenosis. No aneurysm. RIGHT POSTERIOR CEREBRAL ARTERY: Unremarkable No occlusion or significant stenosis. No aneurysm . RIGHT INTRACRANIAL INTERNAL CAROTID ARTERY: Unremarkable No significant stenosis. No dissection or occlusion. RIGHT INTRACRANIAL VERTEBRAL ARTERY: Unremarkable No significant stenosis. No dissection or occ lusion. LEFT ANTERIOR CEREBRAL ARTERY: See above. LEFT MIDDLE CEREBRAL ARTERY: Unremarkable No occlusion or significant stenosis. No aneurysm. LEFT POSTERIOR CEREBRAL ARTERY: Unremarkable No occlusion or significant stenosis. No aneurysm. LEFT INTRACRANIAL INTERNAL CAROTID ARTERY: Unremarkable No significant stenosis. No dissection or occlusion. LEFT INTRACRANIAL VERTEBRAL ARTERY: Unremarkable No significant stenosis. No dissection or occl usion. BASILAR ARTERY: Unremarkable No occlusion or significant stenosis. No aneurysm. OTHER VASCULATURE: No vascular malformation. NECK: RIGHT COMMON CAROTID ARTERY: Unremarkable No significant stenosis. No dissection or occlusion. RIGHT EXTRACRANIAL INTERNAL CAROTID ARTERY: Unremarkable No significant stenosis. No dissection or occlusion. RIGHT EXTERNAL CAROTID ARTERY: Unremarkable No occlusion. RIGHT EXTRACRANIAL VERTEBRAL ARTERY: Unremarkable No significant stenosis. No dissection or occ lusion. LEFT COMMON CAROTID ARTERY: Unremarkable No significant stenosis. No dissection or occlusion. LEFT EXTRACRANIAL INTERNAL CAROTID ARTERY: Unremarkable No significant stenosis. No dissection or occlusion. LEFT EXTERNAL CAROTID ARTERY: Unremarkable No occlusion. LEFT EXTRACRANIAL VERTEBRAL ARTERY: Unremarkable No significant stenosis. No dissection or occl usion. LUNG APICES: Small irregular focus of groundglass in the subpleural anterior segment of the right u pper lobe, measuring up to 1.5 cm. HEAD and NECK: BONES/JOINTS: Unremarkable No discrete lytic or blastic abnormalities. SOFT TISSUES: Unremarkable OTHER FINDINGS: Noncalcified 0.4 cm nodule within the posterior left apex. CAROTID STENOSIS REFERENCE USING NASCET CRITERIA: % ICA stenosis = (1 - narrowest ICA diameter/diameter of distal cervical ICA) x 100. Mild - <50% stenosis. Moderate - 50-69% stenosis. Severe - 70-94% stenosis. Near occlusion - 95-99% stenosis. Occluded - 100% stenosis. * A single impression for all exams can be found at the end of this report IMPRESSION: 1. No acute intracranial abnormality. 2. No occlusion, high-grade stenosis, or acute abnormality of the cervical or central intracranial arteries. 3. Small irregular focus of groundglass in the subpleural anterior segment of the right upper lobe, measuring up to 1.5 cm. Noncalcified 0.4 cm nodule within the posterior left apex. New from 12/03/2024 CTA neck exam, favoring an infectious or inflammatory process. Recommend repeat evaluation with dedicated chest CT in 3 months to ensure resolution. Electronically signed by: Enrrique Gutierrez MD 01/14/2025 06:17 AM CDT RP Due to temporary technical issues with the [employer] reporting system, reports are being fanny d by the in-house radiologist without review as a courtesy to ensure prompt reporting the interpreting radiologist is fully responsible for the content of the report. Transcribed Date/Time: 01/14/2025 6:52 AM
[2025-01-14] MEDS ORDERED: D50W 25 GM/50 ML SYRINGE IV ONE (07:08)
[2025-01-14] MEDS ORDERED: ASPIRIN 81 MG CHEWABLE TABLET ONE (07:36)
[2025-01-14] MEDS ORDERED: FOLIC ACID 5 MG/ML VIAL ONE (07:37)
[2025-01-14] MEDS ORDERED: NA CHLORIDE 0.9% 1,000 ML ONE (07:37)
[2025-01-14] MEDS ORDERED: D5W 1,000 ML IV ONE (07:37)
--- NOTE | 2025-01-14 08:06 | ER ---
Nurse's Notes [facility] Jennifer Name: Darby Lau Age: 69 yrs Sex: Female : 1955 Arrival Date: 01/14/2025 Time: 05:10 Bed 19 Private MD: Diagnosis: Weakness;Hypoglycemia, unspecified;Hypo-osmolality and hyponatremia;Aphasia Presentation: 01/14 05:12 An acute neurological deficit is present. The patients blood glucose was checked before ha1 arriving to the hospital and was found to be normal. Initial Sepsis Screen: Does the patient meet any 2 criteria? No. Patient's initial sepsis screen is negative. Does the patient have a suspected source of infection? No. Patient's initial sepsis screen is negative. 05:12 Risk Assessment: Do you want to hurt yourself or someone else? Patient reports no ha1 desire to harm self or others. 05:24 Coronavirus screen: Client denies travel out of the [place] in the last 14 days. Ebola ha1 Screen: No symptoms or risks identified at this time. 05:24 Method Of Arrival: EMS: [facility] ha1 05:44 Chief complaint: EMS states: called due to not being able to control blood cc6 glucose levels. Upon arrival pt was responsive and c/o generalized weakness. EMS states pt started to tense up and loosen up for 30 seconds and then was unresponsive. EMS states they were unsure if it was a seizure. 05:44 Acuity: OMID 2 cc6 Triage Assessment: 05:12 The onset of the patients symptoms was. General: Appears comfortable, Behavior is calm, ha1 cooperative. Pain: Denies pain. Neuro: Level of Consciousness is awake, alert, obeys commands, Oriented to person, place, time, situation, Reports weakness generalized. Cardiovascular: Capillary refill < 3 seconds Patient's skin is warm and dry. Respiratory: Airway is patent Respiratory effort is even, unlabored, Respiratory pattern is regular, symmetrical. GI: No signs and/or symptoms were reported involving the gastrointestinal system. Abdomen is round obese. : No signs and/or symptoms were reported regarding the genitourinary system. Derm: Skin is pink, warm \T\ dry. Musculoskeletal: Circulation, motion, and sensation intact. Stroke Activation: Physician: ED Attending; Name: [place]; Notified At: ; Arrived At: Physician: Mid-Level Provider; Name: ; Notified At: ; Arrived At: Physician: [not used]; Name: ; Notified At: ; Arrived At: Physician: [not used]; Name: ; Notified At: ; Arrived At: Physician: [not used]; Name: ; Notified At: ; Arrived At: Historical: - Allergies: 05:23 Cipro; ha1 05:23 Codeine; ha1 05:23 Darvocet-N 100; ha1 05:23 Sulfa (Sulfonamide Antibiotics); ha1 - PMHx: 05:23 Back pain; Cerebrovascular accident; Diabetes - IDDM; Hypertensive disorder; ha1 osteoarthritis; - Immunization history:: Adult Immunizations unknown. - Infectious Disease History:: Denies. - Social history:: Smoking status: unknown. Screenin:12 [facility] ED Fall Risk Assessment (Adult) History of falling in the last 3 months, ha1 including since admission Yes- single mechanical fall (1 pt) Confusion or Disorientation No (0 pts) Intoxicated or Sedated Yes (3 pts) Impaired Gait Yes (1 pt) Mobility Assist Device Used Yes (1 pt) Altered Elimination No (0 pt) Score/Fall Risk Level 3 or more points = High Risk Oriented to surroundings, Maintained a safe environment, Educated pt \T\ family on fall prevention, incl call for assistance when getting out of bed, Hourly rounding (assess needs \T\ fall precautionary measures) done. Abuse screen: Denies threats or abuse. Denies injuries from another. Abuse screen: Denies threats or abuse. Nutritional screening: No deficits noted. Tuberculosis screening: No symptoms or risk factors identified. Assessment: 05:12 General: SEE TRIAGE ASSESSMENT . ha1 05:12 VAN Scoring: Arm Drift: Patients demonstrates NO arm weakness. Patient is VAN Negative. ha1 Visual Disturbance: No visual disturbance noted. Aphasia: No aphasia noted. Kenney Swallow Protocol Oral Mechanism Examination. TNKase (Tenecteplase) Screening: Not Applicable. 06:57 Kenney Swallow Protocol 3 oz Water Swallow Challenge: Pt able to drink all water without ha1 stopping, coughing, choking or throat clearing: Yes Result: GENEVIEVE MONROY Notified: Horacio Garcia MD. 07:00 General: Appears in no apparent distress. comfortable, Behavior is calm, cooperative, cm10 appropriate for age. Neuro: No deficits noted. Level of Consciousness is awake, alert, obeys commands, Oriented to person, place, time, situation, Appropriate for age. Neuro: Audit Clerk are equal bilaterally Moves all extremities. Gait is unsteady. Respiratory: No deficits noted. Airway is patent Respiratory effort is even, unlabored, Respiratory pattern is regular, symmetrical. 07:02 Reassessment: LOW GLUCOSE LEVEL AT 40. NOTIFIED DR. GARCIA. ha1 07:18 Kenney Swallow Protocol Brief Cognitive Screen. ha1 08:30 Reassessment: Patient appears in no apparent distress at this time. Patient and/or cm10 family updated on plan of care and expected duration. Pain level reassessed. Patient is alert, oriented x 3, equal unlabored respirations, skin warm/dry/pink. 10:09 General: INSULIN PUMP AND MEDICAL ALERT BRACELET REMOVED AND GIVEN TO RAPHAEL (CHARGE 10 NURSE) ON 2ND FLOOR.. Vital Signs: 05:12 BP 140 / 58; Pulse 62; Resp 14; Pulse Ox 99% on R/A; cc6 05:12 Weight 72.57 kg; Height 5 ft. 4 in. ; ha1 05:30 BP 140 / 58; Pulse 61; Resp 12; Pulse Ox 99% ; cc6 05:44 BP 140 / 58; Pulse 62; Resp 14; Pulse Ox 99% ; cc6 06:32 BP 130 / 81; Pulse 60; Resp 14; Pulse Ox 99% on R/A; cc6 06:45 BP 104 / 47; Pulse 55; Resp 16; Pulse Ox 99% on R/A; cc6 07:15 BP 134 / 49; Pulse 66; Resp 15; Pulse Ox 97% ; cm10 07:30 BP 127 / 66; Pulse 63; Resp 16; Pulse Ox 99% ; cm10 07:45 BP 146 / 73; Pulse 69; Resp 16; Pulse Ox 97% on R/A; cm10 08:00 BP 152 / 57; Pulse 63; Resp 16; Pulse Ox 99% on R/A; cm10 05:12 Body Mass Index 27.46 (72.57 kg, 162.56 cm) ha1 NIH Stroke Scale Scores: 05:12 NIHSS Score: 0 ha1 ED Course: 05:12 Patient arrived in ED. jj6 05:12 Arm band placed on right wrist. ha1 05:12 Patient has correct armband on for positive identification. Placed in gown. Bed in low ha1 position. Side rails up X2. 05:12 Provided Education on: PLAN OF CARE . ha1 05:28 Shania Hearn, RN is Primary Nurse. cc6 05:32 Horacio Garcia MD is Attending Physician. tw7 05:47 Triage completed. cc6 05:58 CT Head Angio In Process Unspecified. EDMS 05:59 CT Neck Angio In Process Unspecified. EDMS 05:59 CT Stroke Brain w/o Contrast In Process Unspecified. EDMS 06:33 Stroke CXR 1 View In Process Unspecified. EDMS 07:08 Attending Physician role handed off by Horacio Garcia MD melissa 07:08 Klaus Tubbs MD is Attending Physician. melissa 08:04 Gildardo Delgado MD is Hospitalizing Provider. melissa 10:06 No provider procedures requiring assistance completed. Patient admitted, IV remains in jl7 place. intact, No redness/swelling at site. Administered Medications: 07:10 Drug: D50W IVP 50 ml IVP once; (1 amp) Route: IVP; Site: right antecubital; ha1 07:28 Follow up: Response: No adverse reaction; Blood sugar is elevated cm10 07:48 Drug: D5W IV 1000 ml IV at 100 ml/hr continuous Route: IV; Rate: 100 ml/hr; Site: right cm10 antecubital; 10:05 Follow up: Response: No adverse reaction; IV Status: Infusion continued upon admission jl7 07:48 Drug: foLIC Acid IVPB 1 mg IVPB once Route: IVPB; Site: right antecubital; cm10 07:49 Follow up: Response: No adverse reaction; IV Status: Completed infusion jl7 07:49 Drug: Aspirin PO Chewable Tablet 162 mg PO once Route: PO; cm10 10:05 Follow up: Response: No adverse reaction jl7 07:49 Drug: NS 0.9% IV 1000 ml IV at 1000 ml once; to be given as a bolus over 60 minutes cm10 Route: IV; Rate: 1000 ml; Site: right antecubital; 08:49 Follow up: IV Status: Completed infusion; IV Intake: 1000ml jl Medication: 10:04 VIS not applicable for this client. [facility] Point of Care Testing: Blood Glucose: 05:15 Blood Glucose: 84 mg/dL; ha1 Ranges: Intake: 08:49 IV: 1000ml; Total: 1000ml. jl7 Outcome: 08:06 Decision to Hospitalize by Provider. melissa 09:00 Admitted to ER Hold. Please see [facility] for further documentation. jl7 09:00 Condition: stable 09:00 Discharge instructions given to patient, Instructed on the need for admit, Demonstrated understanding of instructions, 10:06 Patient left the ED. jl7 NIH Stroke Scale - NIH Stroke Score Date: 01/14/2025 Time: 05:12 Total Score = 0 10. Dysarthria (speech clarity - read or repeat words) - 0(Normal) 11. Extinction and Inattention (visual/tactile/auditory/spatial/personal) - 0(No abnormality) 1a. Level of Consciousness (LOC) - 0(Alert) 1b. Level of Consciousness (LOC) (Month \T\ Age) - 0(Both) 1c. LOC Commands (Open \T\ Closes Eyes/Policy Advisor) - 0(Both) 2. Best Gaze (Lateral Gaze Paresis) - 0(Normal) 3. Visual Field Loss - 0(No visual loss) 4. Facial Palsy - 0(Normal) 5a. Left Arm: Motor (10-second hold) - 0(No drift) 5b. Right Arm: Motor (10-second hold) - 0(No drift) 6a. Left Leg: Motor (5-second hold - always test supine) - 0(No drift) 6b. Right Leg: Motor (5-second hold - always test supine) - 0(No drift) 7. Limb Ataxia (finger/nose \T\ heel/fitzpatrcik - test with eyes open) - 0(Absent) 8. Sensory Loss (pinprick arms/legs/face) - 0(Normal) 9. Best Language: Aphasia (description/naming/reading) - 0(No aphasia) Initials: ha1 Signatures: Dispatcher [employer] EDKlaus Vazquez MD MD cha Leal, Jahala RN RN jl7 Mariya Chávezj6 Eugenia Moser RN RN ha1 Vandana Hatfield RN RN cm10 Shania Hearn RN RN cc6 Horacio Garcia MD MD tw7
--- NOTE | 2025-01-14 08:06 | EDPHYS ---
Physician Documentation [facility] Name: Darby Lau Age: 69 yrs Sex: Female : 1955 Arrival Date: 01/14/2025 Time: 05:10 Bed 19 Private MD: ED Physician Klaus Tubbs HPI: 01/14 05:44 This 69 yrs old Female presents to ER via EMS with complaints of Weakness. tw7 05:45 This 69 yrs old Female presents to ER via EMS with complaints of Weakness. tw7 05:47 69-year-old female with a past medical history of hypertension, diabetes, tw7 hyperlipidemia, previous CVA brought in by EMS for further evaluation of weakness. History is limited by patient's condition as patient has aphasia now. is unclear to me which of patient's deficits are new in which are old. On chart review I can see that patient had aphasia when she was here for stroke on 12/03/2024 there is no mention of left upper extremity weakness. On my examination here today patient has left upper extremity and left lower extremity weakness. Patient follows commands but is unable to speak due to aphasia. And really will not nod yes or no in the affirmative or not. Unclear if she is altered. There is no additional historian apparently patient's has dementia and is at home. History is my patient condition aphasia. Patient has left upper and left lower extremity weakness. Will call code stroke. Unknown onset of the symptoms.. Historical: - Allergies: 05:23 Cipro; ha1 05:23 Codeine; ha1 05:23 Darvocet-N 100; ha1 05:23 Sulfa (Sulfonamide Antibiotics); ha1 - PMHx: 05:23 Back pain; Cerebrovascular accident; Diabetes - IDDM; Hypertensive disorder; ha1 osteoarthritis; - Immunization history:: Adult Immunizations unknown. - Infectious Disease History:: Denies. - Social history:: Smoking status: unknown. ROS: 05:49 Unable to obtain ROS due to Aphasia secondary to prior stroke, tw7 01/15 06:22 Constitutional: Negative for fever, chills, and weight loss, Exam: 01/14 05:50 Constitutional: This is a well developed, well nourished patient who is awake, alert, tw7 and in no acute distress. Head/Face: Normocephalic, atraumatic. ENT: Nares patent. No nasal discharge, no septal abnormalities noted. Tympanic membranes are normal and external auditory canals are clear. Oropharynx with no redness, swelling, or masses, exudates, or evidence of obstruction, uvula midline. Mucous membranes moist. Neck: Trachea midline, no thyromegaly or masses palpated, and no cervical lymphadenopathy. Supple, full range of motion without nuchal rigidity, or vertebral point tenderness. No Meningismus. Chest/axilla: Normal chest wall appearance and motion. Nontender with no deformity. No lesions are appreciated. Cardiovascular: Regular rate and rhythm with a normal S1 and S2. No gallops, murmurs, or rubs. Normal PMI, no JVD. No pulse deficits. Respiratory: Lungs have equal breath sounds bilaterally, clear to auscultation and percussion. No rales, rhonchi or wheezes noted. No increased work of breathing, no retractions or nasal flaring. Abdomen/GI: Soft, non-tender, with normal bowel sounds. No distension or tympany. No guarding or rebound. No evidence of tenderness throughout. Negative Farmer's. Negative McBurney's Neuro: Orientation: Mentation: Cranial nerves: Speech is Aphasic. Motor: Strength is 1/5 in the left arm and left leg, 05:52 Special observations: Expressive aphasia, left upper extremity weakness, left lower tw7 extremity weakness, does not really follow commands, does not nod yes or no to affirmative, but will blink if you ask her to blink yes or no to questions. Will hold her right arm and right leg up but has flaccid process for left upper and left lower extremity. , 06:42 ECG was reviewed by the Attending Physician. tw7 Vital Signs: 05:12 BP 140 / 58; Pulse 62; Resp 14; Pulse Ox 99% on R/A; cc6 05:12 Weight 72.57 kg; Height 5 ft. 4 in. ; ha1 05:30 BP 140 / 58; Pulse 61; Resp 12; Pulse Ox 99% ; cc6 05:44 BP 140 / 58; Pulse 62; Resp 14; Pulse Ox 99% ; cc6 06:32 BP 130 / 81; Pulse 60; Resp 14; Pulse Ox 99% on R/A; cc6 06:45 BP 104 / 47; Pulse 55; Resp 16; Pulse Ox 99% on R/A; cc6 07:15 BP 134 / 49; Pulse 66; Resp 15; Pulse Ox 97% ; cm10 07:30 BP 127 / 66; Pulse 63; Resp 16; Pulse Ox 99% ; cm10 07:45 BP 146 / 73; Pulse 69; Resp 16; Pulse Ox 97% on R/A; cm10 08:00 BP 152 / 57; Pulse 63; Resp 16; Pulse Ox 99% on R/A; cm10 05:12 Body Mass Index 27.46 (72.57 kg, 162.56 cm) ha1 NIH Stroke Scale Scores: 05:12 NIHSS Score: 0 ha1 MDM: 06:20 Medical Screening Exam initiated tw 08:52 Data reviewed: vital signs, nurses notes, lab test result(s), EKG, radiologic studies, melissa CT scan, MRI, plain films. Consideration of Admission/Observation Patient was admitted/placed on observation. Escalation of care including admission/observation considered. I considered the following discharge prescriptions or medication management in the emergency department Medications were administered in the Emergency Department. See MAR. Independent interpretation of the following test(s) in the Emergency Department EKG: See my EKG interpretation above. Test considered but Not performed: Ultrasound no carotid doppler. Historians other than the Patient: Spouse/Significant Other: . Care significantly affected by the following chronic conditions: Diabetes, Hypertension, Obesity, osteoarthritis. Counseling: I had a detailed discussion with the patient and/or guardian regarding the historical points, exam findings, and any diagnostic results supporting the discharge/admit diagnosis, lab results, radiology results, the need for further work-up and treatment in the hospital. 01/14 05:41 Order name: Basic Metabolic Panel; Complete Time: 06:39 01/14 05:41 Order name: CBC with Diff; Complete Time: 06:39 01/14 05:41 Order name: Hepatic Function; Complete Time: 06:39 01/14 05:41 Order name: High Sensitivity Troponin; Complete Time: 06:39 01/14 05:41 Order name: Magnesium; Complete Time: 06:39 01/14 05:41 Order name: Protime (+inr); Complete Time: 06:39 01/14 05:41 Order name: Ptt, Activated; Complete Time: 06:39 01/14 05:52 Order name: Glucose, Ancillary Testing; Complete Time: 06:39 EDWI 01/14 07:18 Order name: Glucose, Ancillary Testing; Complete Time: 07:22 [facility] 01/14 07:24 Order name: UA Rfx Ruben Cult if indicated [facility] 01/14 08:03 Order name: Glucose, Ancillary Testing; Complete Time: 09:53 EDWI 01/14 08:04 Order name: Osmolality, Serum [facility] 01/14 08:04 Order name: Urine Sodium Random [facility] 01/14 08:04 Order name: Urine Osmolality [facility] 01/14 05:41 Order name: CT Head Angio; Complete Time: 07:06 tw 01/14 05:41 Order name: CT Neck Angio; Complete Time: 07:06 [facility] 01/14 05:41 Order name: CT Stroke Brain w/o Contrast; Complete Time: 07:06 01/14 05:41 Order name: Stroke CXR 1 View; Complete Time: 09:53 [facility] 01/14 09:34 Order name: Brain Wo Cont [facility] 01/14 09:01 Order name: CONS Physician Consult [facility] 01/14 05:41 Order name: Accucheck; Complete Time: 05:48 tw 01/14 05:41 Order name: Cardiac monitoring; Complete Time: 06:20 01/14 05:41 Order name: EKG - Nurse/Tech; Complete Time: 06:20 01/14 05:41 Order name: IV Saline Lock; Complete Time: 06:20 01/14 05:41 Order name: Labs collected and sent; Complete Time: 06:20 01/14 05:41 Order name: NPO; Complete Time: 06:20 01/14 05:41 Order name: O2 Per Protocol; Complete Time: 06:23 01/14 05:41 Order name: O2 Sat Monitoring; Complete Time: 06:23 01/14 05:41 Order name: Stroke Swallow Screen; Complete Time: 07:23 EC:42 Rate is 63 beats/min. Rhythm is regular. QRS [place] is Normal. [place] interval is normal. QRS tw7 interval is normal. QT interval is normal. No Q waves. T waves are Normal. No ST changes noted. Administered Medications: 07:10 Drug: D50W IVP 50 ml IVP once; (1 amp) Route: IVP; Site: right antecubital; ha1 07:28 Follow up: Response: No adverse reaction; Blood sugar is elevated 10 07:48 Drug: D5W IV 1000 ml IV at 100 ml/hr continuous Route: IV; Rate: 100 ml/hr; Site: right cm10 antecubital; 10:05 Follow up: Response: No adverse reaction; IV Status: Infusion continued upon admission jl7 07:48 Drug: foLIC Acid IVPB 1 mg IVPB once Route: IVPB; Site: right antecubital; cm10 07:49 Follow up: Response: No adverse reaction; IV Status: Completed infusion jl7 07:49 Drug: Aspirin PO Chewable Tablet 162 mg PO once Route: PO; cm10 10:05 Follow up: Response: No adverse reaction 07:49 Drug: NS 0.9% IV 1000 ml IV at 1000 ml once; to be given as a bolus over 60 minutes cm10 Route: IV; Rate: 1000 ml; Site: right antecubital; 08:49 Follow up: IV Status: Completed infusion; IV Intake: 1000ml 7 Point of Care Testing: Blood Glucose: 05:15 Blood Glucose: 84 mg/dL; ha1 Ranges: Critical Glucose Levels:Adult <50 mg/dl or >400 mg/dl <40 mg/dl or >180 mg/dl Disposition Summary: 01/14/25 08:06 Hospitalization Ordered Notes: Hospitalization Status: Inpatient Admission melissa Provider: Gildardo Delgado cha [facility] melissa Condition: Fair melissa Problem: new melissa Symptoms: have improved melissa Bed/Room Type: Standard [facility] Room Assignment: 215(01/14/25 09:11) bd Diagnosis - Weakness melissa - Hypoglycemia, unspecified melissa - Hypo-osmolality and hyponatremia melissa - Aphasia melissa Forms: - Medication Reconciliation Form melissa - SBAR form melissa - Leadership Thank You Letter [facility] NIH Stroke Scale - NIH Stroke Score Date: 01/14/2025 Time: 05:12 Total Score = 0 10. Dysarthria (speech clarity - read or repeat words) - 0(Normal) 11. Extinction and Inattention (visual/tactile/auditory/spatial/personal) - 0(No abnormality) 1a. Level of Consciousness (LOC) - 0(Alert) 1b. Level of Consciousness (LOC) (Month \T\ Age) - 0(Both) 1c. LOC Commands (Open \T\ Closes Eyes/Securities Adviser) - 0(Both) 2. Best Gaze (Lateral Gaze Paresis) - 0(Normal) 3. Visual Field Loss - 0(No visual loss) 4. Facial Palsy - 0(Normal) 5a. Left Arm: Motor (10-second hold) - 0(No drift) 5b. Right Arm: Motor (10-second hold) - 0(No drift) 6a. Left Leg: Motor (5-second hold - always test supine) - 0(No drift) 6b. Right Leg: Motor (5-second hold - always test supine) - 0(No drift) 7. Limb Ataxia (finger/nose \T\ heel/fitzpatrick - test with eyes open) - 0(Absent) 8. Sensory Loss (pinprick arms/legs/face) - 0(Normal) 9. Best Language: Aphasia (description/naming/reading) - 0(No aphasia) Initials: ha1 Signatures: Dispatcher [employer] EDMS Linda Mccall Corey, MD MD cha Ayala, Heidy, RN RN ha1 Vandana Hatfield RN RN cm10 Horacio Garcia MD MD tw7 Ant, Hillary RN jl7 Corrections: (The following items were deleted from the chart) 05:42 05:42 BASIC METABOLIC PANEL+C.LAB.BRZ ordered. EDMS EDMS 05:42 05:42 CBC+H.LAB.BRZ ordered. EDMS EDMS 05:42 05:42 HEPATIC FUNCTION+C.LAB.BRZ ordered. EDMS EDMS 05:42 05:42 Troponin High Sensitivity+C.LAB.BRZ ordered. EDMS EDMS 05:42 05:42 MAGNESIUM+C.LAB.BRZ ordered. EDMS EDMS 05:42 05:42 PROTIME (+INR)+COAG.LAB.BRZ ordered. EDMS EDMS 05:42 05:42 PTT, ACTIVATED+COAG.LAB.BRZ ordered. EDMS EDMS 05:42 05:42 Head Angio+CT.RAD.BRZ ordered. EDMS EDMS 05:42 05:42 Neck Angio+CT.RAD.BRZ ordered. EDMS EDMS 05:42 05:42 CT-STROKE BRAIN W/O CONTRAST+CT.RAD.BRZ ordered. EDMS EDMS 05:42 05:42 Chest Single View+RAD.RAD.BRZ ordered. EDMS EDMS 08:04 08:04 OSMOLALITY, SERUM+SC.LAB.BRZ ordered. EDMS EDMS 08:04 08:04 URINE SODIUM RANDOM+CHEM UR.LAB.BRZ ordered. EDMS EDMS 08:04 08:04 Osmolality, Urine ordered. EDMS EDMS 09:11 08:06 melissa bd 09:34 07:52 MR STROKE PROTOCOL+MRI.RAD.BRZ ordered. EDMS EDMS
--- NOTE | 2025-01-14 08:07 | RAD REPORT ---
EXAMINATION: ONE VIEW CHEST XR CLINICAL INDICATION: Female, 69 years old.,COUGH TECHNIQUE: Frontal chest projection is submitted. Examination is limited by patient positioning and t echnique. COMPARISON: 12/03/2024 FINDINGS: The lungs are grossly clear although suboptimal inspiratory effort somewhat limits evaluation. Elevat ion of the right hemidiaphragm again seen. No pneumothorax or sizable effusion. The heart is upper limit of normal in size. Mediastinal contours are unremarkable. IMPRESSION: No acute intrathoracic abnormalities. Stable findings as above.
[2025-01-14] MEDS ORDERED: ONDANSETRON 4 MG/2 ML VIAL IV PRN (10:52)
[2025-01-14] MEDS ORDERED: ACETAMINOPHEN 325 MG TABLET PO PRN (10:52)
[2025-01-14] MEDS: NA CHLORIDE 0.9% 1,000 ML IV SCH (13:14)
[2025-01-14] MEDS: ASPIRIN EC 81 MG TAB PO SCH (13:18)
--- NOTE | 2025-01-14 13:39 | RAD REPORT ---
EXAMINATION: MRI BRAIN WITHOUT CONTRAST CLINICAL INDICATION: Female, 69 years old.[facility] MAIN N STROKE ALERT Bed Name: 19 TECHNIQUE: Multiplanar multisequence MR images of the brain were obtained without intravenous contras t. Unless otherwise specified, incidental findings do not require dedicated imaging follow-up. COMPARISON: 12/04/2024 brain MRI. 01/14/[address] angiogram FINDINGS: INTRACRANIAL: Midline structures are unremarkable. Diffusion-weighted images show no acute or early subacute infarction. There is mild brain atrophy with mild stable T2/FLAIR hyperintensities in the periventricular and deep white matter regions, likely representing chronic microvascular ischemic melissa nges. There is no mass effect or midline shift. No abnormal extraaxial fluid collection. VASCULATURE: Normal signal voids in the larger intracranial arteries and dural venous sinuses. SINUSES: The paranasal sinuses and mastoid air cells are predominantly clear. BONE: The marrow signal pattern is within normal limits. IMPRESSION: No significant intracranial abnormalities. Stable findings as above.
[2025-01-14 16:10] LABS: Sqamous Epithelial <5 /HPF (None Seen); Urine Crystals Unidentified Few /HPF (None Seen); Urine Culture Reflex Order REFLEXED; Urine Microscopic Reflex YN ORDER UMIC
[2025-01-14] MEDS: INSULIN REGULAR (HUMAN) 100 UNIT/ML SQ SCH (16:56)
[2025-01-14] MEDS: BENZONATATE 100 MG CAP PO PRN (19:12)
[2025-01-14] MEDS: LOSARTAN POTASSIUM 50 MG TABLET PO SCH (21:22)
[2025-01-14] MEDS: levETIRAcetam 500 MG TAB PO SCH (21:22)
[2025-01-14] MEDS: ATORVASTATIN 40 MG TAB PO SCH (21:22)
[2025-01-14] MEDS: FAMOTIDINE 20 MG/2 ML VIAL IV SCH (21:23)
[2025-01-14] MEDS: CEFTRIAXONE 1,000 MG in NA CHLORIDE 0.9% 50 ML IVPB SCH (21:23)
[2025-01-14 22:37] VITALS: O2SAT 97
--- NOTE | 2025-01-15 01:10 | CON ---
Reason For Consultation: Consultation was called because of possible seizure versus stroke. History Of Present Illness: Ms. Lau is a 69-year-old patient with brittle diabetes mellitus. She was initially seen in clinic day prior to her hospital admission where she was in the foyer of the [facility] when she developed poor responsiveness, had some shaking, and her romi hecked her blood sugar at that time, found it to be 44. She was able to be responsive enough to madhu Boyle and after several sips, she seemed to regain her baseline functioning and blood sugar was around 98. She was told to go to the emergency room; however, the patient did go home and today ear lier the patient did come back with the symptoms of weakness, has been fluctuating. She had a CT sca n of the head done in the emergency room. The study showed no acute ischemic or hemorrhagic findings . There was a remote left lateral basal ganglia lacunar infarct identified. A CT angiogram study of the head showed remote left basal ganglia infarct, but no large vessel occlusion was identified. CT angiogram of the neck showed no high-grade stenosis or significant abnormalities. Brain MRI done [facility] today showed no acute intracranial abnormalities. Did identify microvascular ischemic change a nd was unchanged compared to CT scans done. Laboratory Studies: Shows essentially unremarkable complete blood count with differential. INR 0.97 . Her blood sugars did range up to 496 with a low of 40 around 7 in the morning. Sodium 125, chlori de 91, and calcium 8.0. Magnesium 1.9. AST 22, ALT 31, alkaline phosphatase is 83 and urinalysis sh ows extreme turbidity, 4+ glucose, 500 esterase, 20-50 white blood cells, 20-50 urine bacteria. Curr ently, she is hospitalized with the aspirin for stroke risk reduction. She has Tessalon Perles for c ough, Pepcid for reflux, folic acid for stroke risk reduction. She was loaded with Keppra 500 mg twi ce daily for potential seizure activity and she received normal saline. Allergies: CIPROFLOXACIN, CODEINE, PROPOXYPHENE, BENZODIAZEPINES. Social History: The patient lives with her who takes built-in care of her. She drinks no al cohol, no tobacco or IV drug use. Family History: Noncontributory. Review of Systems: Intermittent episodes of confusion, shaking, disorientation especially with low blood sugars that imp rove when blood sugars are increased. She does appears again to have brittle diabetes with blood sug ars running from 40 to 490, close to 500. Physical Examination: VITAL SIGNS: Blood pressure 120/61, pulse 80, respiratory rate 18, temperature 98, oxygen saturation 97%. Weight is 160 pounds, height 5 feet 4 inches, BMI 27.5. General: Ms. Lau currently is in a normal mood. HEENT: She is normocephalic, atraumatic. Sclerae anicteric. Oropharynx pink and moist. Neck: Supple. Chest: Clear. Heart: Regular. Extremities: Show no clubbing, cyanosis, or edema. She moves all her extremities equally well. Neuro: She has no focal neurological deficits. Her is sitting at the bedside and he was able to watch. Assessment And Plan: Ms. Lau is a 69-year-old patient who appears to have brittle diabetes with ve ry elevated and very low blood sugars. Low blood sugars when triggered tremor-like activity, which m ay not necessarily represent seizures, but is unclear at this point if she is having seizures. Very low blood sugars or elevated blood sugars can produce seizure-like activity and even focal neurologic al deficits. An EEG may be helpful if an event occurs while EEG is being done. Event may be charact erized. Plan: 1. She should continue with Keppra for now 500 mg twice daily. 2. She may be managed by an theater company producer or Dr. Delgado as appropriate for the bounding blood sugars. 3. After discharge, she may follow up in Dr. Dawson's clinic for ambulatory video EEG monitoring fo r event characterization. JENNA/SHAMA Voice ID: [id number] Report ID: [id number]
--- NOTE | 2025-01-15 03:35 | HP ---
Date of Admission: 01/14/2025 Chief Complaint: Unresponsiveness. History Of Present Illness: This is a 69-year-old female patient, who recently saw me at office on 0 01/08/2025. While she was at the office, she actually had an episode of seizure where she became unre sponsive and started shaking all over. She has been having spells like this lately, but this was fir st time that I witnessed without any other physician had chance to witness it. When I saw her at off ice at that time, she was sitting in chair. Her entire body was twitching and she stopped talking at that time. She was able to hear us in the room, but she was not able to answer. There was no froth coming out of her mouth. No bleeding. No incontinence. This episode lasted for about 1 minute and blood sugar at that time was 163. I did call Dr. Dawson who has seen her before, described this e pisode and we started her on empiric antiseizure medication which was Keppra 250 mg daily at bedtime and plan was to increase dose by 250 mg every week until she gets to 500 mg twice a day. Today, the patient had much more severe episode than what she had before and her called 911 and she was brought into emergency room. By the time EMS arrived at scene, her episode was over. The patient ramos d 2 more episodes after she came to emergency room and I was contacted requesting admission to [facility]. When I saw her this evening, the patient's son and [id number] were present with her at [facility] [place]. The patient also informed me that the medication, Keppra, which was prescribed, she was not abl e to get it as pharmacy had to order it and today finally she was able to get this prescription, so s he has not started this medication as prescribed because it was not available. Physical Examination: Vital Signs: Height 5 feet 4 inches, weight 160 pounds, temperature 98, pulse 80, respiratory rate 1 8, blood pressure 128/61, oxygen saturation 97%. General: Awake, alert, oriented, not in distress. HEENT: Head atraumatic, normocephalic. Conjunctivae nonerythematous. Sclerae white. Mouth, no thr ush or edema noted. Ears/Nose, no mass, lesion, discharge noted. Neck: Supple. No JVD, lymph nodes, bruit, thyromegaly noted. Lungs: Bilateral good equal air entry. Clear to auscultation. No rhonchi. No rales. Heart: Normal heart sounds, no murmur or gallop. Abdomen: Soft, bowel sounds normal. No guarding, rigidity, tenderness, mass, hepatosplenomegaly, dis tention, or bruit noted. Extremities: No leg edema. No calf tenderness. Skin: No rash, ulcer, cellulitis. Lymphatics: No lymph node enlargement in neck, supraclavicular, infraclavicular region. Neuro: No focal neurological deficit. Chest: Unremarkable. External Genitalia: Deferred. Rectal: Deferred. Laboratory Data: WBC 5.8, hemoglobin 11.8, platelets 256. Sodium 125, potassium 3.6, chloride 91, b icarb 29, BUN 8, creatinine 0.61, glucose 92. Upon admission, it did drop down to 40 and then it was 193 after that. Liver function tests unremarkable. Troponin 4.3 on the first set, second set 6.3. Last glucose was 496. Urinalysis showed extremely turbid urine, leukocytes 500, 20 to 50 wbc, other mckeon negative. CAT scan of the head and CT angiogram of head and neck showed no acute intracranial c hanges. No occlusion or high-grade stenosis or any other acute abnormality. Small irregular focus o f ground-glass in the subpleural anterior segment of the right upper lobe measuring 1.5 cm noncalcifi ed 4 mm nodule in the posterior left apex, new from 12/03/2024 CAT scan. Chest x-ray was negative fo r any acute changes. Impression: 1. Complex partial seizure. 2. Urinary tract infection. 3. Rule out pneumonia. 4. Hypertension. 5. Hyperlipidemia. 6. Osteoarthritis, multiple sites. 7. Type 1 diabetes mellitus, uncontrolled. 8. Allergic rhinitis. 9. Diverticulosis. Plan: We will go ahead and admit the patient to hospital for further evaluation and management of th is problem. The patient is appropriate for inpatient and is expected to spend 2 midnights in [facility]. After she was evaluated in emergency room, Dr. Dawson, neurologist, was contacted and consulted and he suggested to start the patient on Keppra which was started and we will continue that and on o utpatient basis upon discharge, we will discharge her with [facility]. EEG will be done per Dr. Dawson . Seizure precaution was ordered. For diabetes, I did communicate with the patient and her son who was at bedside. She sees director investor relations Dr. Navarrete through [facility] system and lately her blood gluco se on her Dexcom monitor has been showing wide fluctuation with blood sugar as low as in range of 40 to as high as 400 and this happens on a daily basis. Most of the time, her blood sugar that drops lo w is usually tile installer hours. The patient has appointment to see Dr. Navarrete in February, but I suggested her that she needs to communicate with him and follow up with him as soon as possible so he can address this wide fluctuation of her blood sugar from too low to too high and she has tried to c ommunicate with his office, but she has not been successful, so I will go ahead and try to communicat e with his office tomorrow and I have also asked the patient's and [id number] who were p resent at bedside that they should try to call as well as try to communicate through patient portal t o discuss this problem with blood sugar being too high and too low on a day-to-day basis. At home, s he uses insulin pump. She does not have it with her here in the hospital and I will not use it tonig ht as I am definitely afraid that it will create more trouble with hypoglycemia overnight. We will m anage her diabetes with sliding scale. For hypertension, we will continue antihypertensive medicatio n. No need for further intervention. For hyperlipidemia, continue statin therapy per order. No nee d for further intervention. Advance directive was discussed with her and she did not want any heroic measures like CPR, defibrillation, ventilator support in the event of cardiopulmonary arrest and we will write DNR order in the chart. Total time spent 60 minutes including review of emergency room visit record, review of last office vi sit record from 01/08/2025, communicate with emergency room provider, and performing today's evaluati on and management. ALFRED/MODL Voice ID: [id number]
[2025-01-15 06:09] LABS: Absolute Lymphocytes (CBC) 1.0 K/uL (0.7-4.9); Hematocrit 30.6 % (36.0-45.0); Hemoglobin 10.5 g/dL (12.0-15.0); MCH 29.0 pg (27.0-35.0); MCHC 34.4 g/dL (32.0-36.0); MCV 84.5 fL (80-100); MPV 7.9 fL (7.6-11.3); Nucleated RBC Absolute Count 0.0 (0-0); Nucleated Red Blood Cells % 0.1 % (0-0); RBC Red Blood Cell Count 3.63 M/uL (3.86-4.86); White Blood Count 4.60 thou/uL (4.3-10.9)
[2025-01-15 06:26] LABS: Anion Gap 9.8 mEq/L (5.0-15.0); BUN Blood Urea Nitrogen 8.0 mg/dL (7-18); Glucose Level 231.0 mg/dL (74-106); Potassium 3.8 mEq/L (3.5-5.1)
[2025-01-15] MEDS: FOLIC ACID 1 MG in NA CHLORIDE 0.9% 50 ML IV SCH (09:00)
[2025-01-15] MEDS: ENOXAPARIN 40 MG/0.4 ML SQ SCH (09:30)
[2025-01-15] MEDS: GABAPENTIN 300 MG CAP PO SCH (09:31)
[2025-01-15] MEDS: CLOPIDOGREL 75 MG TABLET PO SCH (09:31)
[2025-01-15 10:43] VITALS: BMI 27.4
[2025-01-15 12:41] VITALS: BP 130/58; TEMP 98.2
--- NOTE | 2025-01-15 13:58 | EEG ---
CHART: [id number] TEST ID#: [id number] DATE OF STUDY: 01/15/2025 THE EEG WAS RECORDED PORTABLE IN THE PATIENT'S ROOM ON A 17 CHANNEL MACHINE. ELECTRODES WERE APPLIED IN THE USUAL MANNER USING THE INTERNATIONAL 10-20 SYSTEM. THE WAKING BACKGROUND RHYTHM IN THIS RECORD CONSISTS OF WELL DEVELOPED AND WELL ORGANIZED WAVES OF 7.5 HZ., MAXIMAL IN THE POSTERIOR HEAD REGIONS WHICH ATTENUATE NORMALLY WITH EYE OPENING. LOW-VOLTAGE 15-18 HZ ACTIVITY IS EXPRESSED IN THE FRONTAL REGIONS. THERE ARE NO FOCAL OR LATERALIZING FEATURES. NO EPILEPTIFORM ACTIVITY APPEARS. SLEEP OCCURRED NATURALLY. IN ADDITION TO NORMAL SLEEP PATTERNS ARE PRESENT. HYPERVENTILATION WAS NOT PERFORMED. PHOTIC STIMULATION PRODUCED NO DRIVING BILATERALLY. IMPRESSION: THIS IS A MILDLY ABNORMAL AWAKE AND ASLEEP ROUTINE EEG DUE TO A MILDLY SLOW BACKGROUND AND POSTERIOR DOMINANT RHYTHM. THESE ARE NON-SPECIFIC FINDINGS INDICATING THE PRESENCE OF A MILD DIFFUSE DISTURBANCE IN CEREBRAL FUNCTION.
== END 2025-01-15 12:07 | disposition home or self-care (01) ==
LOC: ER 05:10 → 2ND 08:57 → INTOOBSV 08:57
PROVIDERS: ADMIT Internal Medicine; ATTEND Internal Medicine
DX: G40.209 Localization-related (focal) (partial) symptomatic epilepsy and epileptic syndromes with complex partial seizures, not intractable, without status epilepticus (principal); N39.0 Urinary tract infection, site not specified; I10 Essential (primary) hypertension; E16.2 Hypoglycemia, unspecified; E87.1 Hypo-osmolality and hyponatremia; R47.01 Aphasia; E78.5 Hyperlipidemia, unspecified; M19.90 Unspecified osteoarthritis, unspecified site; E10.8 Type 1 diabetes mellitus with unspecified complications; J30.9 Allergic rhinitis, unspecified; K57.90 Diverticulosis of intestine, part unspecified, without perforation or abscess without bleeding; Z88.5 Allergy status to narcotic agent; Z88.1 Allergy status to other antibiotic agents; Z88.8 Allergy status to other drugs, medicaments and biological substances
CPT/HCPCS: 36415; 70450; 70496; 70498; 70551; 71045; 80048; 80076; 81001; 82947; 83735; 84484; 85025; 85610; 85730; 87086; 87088; 93005; 95819; 96361; 96374; 96375; 99285; G0378; J0696; J1650; J1815; J7030; Q9967